=== PATIENT | female | born 2000 | race Caucasian/White ===

== ENCOUNTER 2024-03-25 13:28 | Outpatient (REF) | payer MEDICAID, SELFPAY ==
[2024-03-25 15:42] LABS: Bacterial Vaginosis PCR POSITIVE (Negative); Candida Group PCR NOT DETECTED (Not Detect); Candida glab krusei PCR NOT DETECTED (Not Detect); Trichomonas vaginalis PCR NOT DETECTED (Not Detect)
[2024-03-25 16:14] LABS: CT PCR DETECTED (Not Detect.); NG PCR NOT DETECTED (Not Detect.)
== END 2024-03-25 13:29 | disposition home or self-care (01) ==
LOC: HO.HHCLNP 13:28
PROVIDERS: Visit Provider Internal Medicine Geriatric Medicine
DX: R10.2 Pelvic and perineal pain (principal)
CPT/HCPCS: 81515; 87491; 87591

== ENCOUNTER 2024-03-26 13:18 | Emergency (ER) | payer MEDICAID, SELFPAY ==
[2024-03-26] VITALS (9 sets, daily range): BP systolic 103–121; BP diastolic 61–73; PULSE 72–101; RESP 16–20; TEMP 36.8–37; O2SAT 98–100; BMI 19.9
--- NOTE | ~2024-03-26 | XR_ITS ---
CLINICAL HISTORY: fall. dislocation? 3 view left shoulder Comparison: None Findings: There is anterior inferior dislocation of the left glenohumeral joint. No significant arthritic change. No erosions. No radiopaque foreign body. IMPRESSION: Anterior inferior dislocation of the left glenohumeral joint. This document has been electronically signed by: Steven Smallwood MD on 03/26/2024 14:52:41
--- NOTE | ~2024-03-26 | XR_ITS ---
CLINICAL HISTORY: Placement 3 view left shoulder Comparison: 03/26/2024 Findings: Successful glenohumeral dislocation reduction on the left. No significant loss of joint space or osteophytes. No erosions. No radiopaque foreign body. IMPRESSION: Successful reduction of the previous left glenohumeral dislocation. No definite fracture. This document has been electronically signed by: Steven Smallwood MD on 03/26/2024 16:56:14
--- NOTE | 2024-03-26 13:52 | ED.GENADULT ---
HPI - General Adult General Chief complaint: Extremity Injury, Upper Stated complaint: shoulder inj Time Seen by Provider: 03/26/24 15:36 Source: patient Mode of arrival: ambulatory Limitations: no limitations History of Present Illness ED Provider: VINNY Sanches HPI narrative: This is a 24-year-old female presenting status post slip and fall with complaints of left shoulder pain. She reports when she fell she fell right onto her left shoulder since then has been having pain and difficulty raising up her left upper extremity. Reports she can not even shrug her shoulders. No head strike or loss of consciousness not on blood thinners. She reports pain 10/10. She tells me she is able to move her elbow and fingers however not her left shoulder. No issues with left shoulder in the past. Denies chest pain, shortness breath, nausea, vomiting, headache, vision changes, dizziness, weakness, numbness, tingling, abdominal pain. Fall was witnessed and witnessed confirms no head strike. Related Data Previous Rx's ?Medication ?Instructions ?Recorded ketorolac 10 mg tablet 10 mg PO TID PRN pain 5 days #15 03/26/24 tabs metronidazole 500 mg tablet 500 mg PO BID 7 days #14 tabs 03/26/24 Allergies Allergy/AdvReac Type Severity Reaction Status Date / Time No Known Allergies Allergy Verified 03/26/24 13:50 Review of Systems Review of Systems: Yes all other systems are reviewed and are negative PMFSH Past Medical History Attestation statement: The following information was validated with the patient. Source: old records reviewed and nursing notes reviewed Social History Social History Advance Directives: No Advance Directives Information Provided: No Do you have a plan to hurt others: No Plan Physical Exam ED Vital Signs: Vital Signs - 24 hr 03/26/24 13:48 03/26/24 16:13 03/26/24 16:14 Temperature 98.3 F Pulse Rate 101 H 90 Respiratory Rate 16 16 18 Blood Pressure 103/61 114/72 Pulse Oximetry 99 100 Oxygen Delivery Method Room Air 03/26/24 16:32 03/26/24 16:36 03/26/24 16:39 Temperature 98.6 F Pulse Rate 82 88 82 Respiratory Rate 19 19 18 Blood Pressure 110/73 121/69 121/73 Pulse Oximetry 99 99 98 Oxygen Delivery Method Room Air Room Air Room Air 03/26/24 16:44 03/26/24 17:03 03/26/24 17:48 Temperature 98.2 F Pulse Rate 99 72 86 Respiratory Rate 17 16 20 Blood Pressure 110/72 118/69 119/67 Pulse Oximetry 98 100 100 Oxygen Delivery Method Room Air Room Air Room Air BMI result Body Mass Index 19.9 Vital signs stbale Appearance: Alert.? Oriented X3.? No acute distress.? Head: Normocephalic, atraumatic, no step-offs or deformities Eyes: Pupils equal, round and reactive to light.? ENT: Pharynx normal.? Neck: Normal inspection.? Neck supple.? CVS: Normal heart rate and rhythm.? Pulses normal.? Respiratory: No respiratory distress.? Breath sounds normal.? Abdomen: Soft and nontender.? Skin: Skin warm and dry.? Normal skin color.? Normal skin turgor.? Extremities: No lower extremity edema.? No calf ttp. 5/5 strength lower extremities and to right upper extremity. Difficult to assess strength to left upper extremity secondary to pain. left shoulder held in the adduction physician tenderness to palpation to left humeral head it appears to be at a place inferiorly concerning for anterior dislocation. Normal distal sensation. Able to wiggle bilateral fingers, normal range of motion to bilateral elbows. Normal distal sensation. No wrist drop. Capillary refill less than 2 seconds. 2+ radial and brachial pulses equal bilateral. Neuro: Oriented X 3.? No motor deficit.? No sensory deficit. CN 2-12 intact Course Course Course Narrative: RME: 24 yold female presents to the ED for left shoulder pain. patient fell and slipped on her stairs due to ice and she fell unto left shoulder. Decrease mobility of left shoulder. xray ordered Reevaluation(s) Reevaluation #1: Patient's initial x-ray with anterior inferior dislocation of the left glenohumeral joint. Reduction with conscious sedation was done using propofol total 75 mcg of propofol use patient tolerated procedure well traction counter traction used with success patient was placed in a sling. Postprocedure films were obtained which shows successful reduction of the previous left glenohumeral dislocation. No definite fracture. Dr. Webb at the bedside for procedure. Patient feeling better. After reduction neurovascular status intact. Patient not in pain. I did notice patient tested positive for chlamydia her doctor sent in doxycycline 100 mg b.i.d. times 10 days she also tested positive for BV however they did not send anything in for that will send metronidazole. I discussed safe sex practices with patient she has an appointment with OB to get further STD testing. Educated on proper sling use. Educated patient on diagnosis and treatment plan, answered all question, patient verbalizes understanding. At this time patient will be discharged home, advised to return with new or worsening symptoms. Educated on worrisome signs and symptoms and when to return. At this time I feel comfortable discharge home. Time: 17:26 Medications Administered Discontinued Medications Generic Name Dose Route Start Last Admin Trade Name Adrienne PRN Reason Stop Dose Admin Ketorolac Tromethamine 15 mg 03/26/24 17:03 03/26/24 17:42 Ketorolac Tromethamine 15 Mg/Ml Vial IVPUSH 03/26/24 17:04 15 mg ONCE ONE Administration Morphine Sulfate 2 mg 03/26/24 15:44 03/26/24 16:13 Morphine Sulfate 2 Mg/Ml Cartridge IVPUSH 03/26/24 15:45 2 mg ONCE ONE Administration Protocol Propofol 100 mg 03/26/24 15:59 03/26/24 16:16 Propofol 200 Mg/20 Ml Vial IVPUSH 03/26/24 16:00 100 mg ONCE ONE Administration Medical Decision Making Medical Decision Making [facility] Narrative: 24-year-old female presents status post slip and fall on ice prior to arrival complaining of left shoulder pain. No head strike or loss of consciousness me. Not on thinners On exam patient with left shoulder held in the adduction physician tenderness to palpation to left humeral head it appears to be at a place inferiorly concerning for anterior dislocation. Normal distal sensation. Able to wiggle bilateral fingers, normal range of motion to bilateral elbows. Normal distal sensation. No wrist drop. Capillary refill less than 2 seconds. 2+ radial and brachial pulses equal bilateral. GCS 15, NIH stroke scale 0. History and physical exam concerning for dislocation will rule out fracture. No signs of neurovascular compromise or acute threat to limb. No signs of trauma to head, neck, chest, abdomen or pelvis. Patient is adamant that she does not want a hematoma block to the left shoulder she would like conscious sedation. I did get verbal and written consent for conscious sedation. Dr. Highwood aware. Plan imaging Differential Diagnosis Differential Diagnoses: The differential diagnosis associated with the presentation includes (Patient is adamant that she does not want a hematoma block to the left shoulder she would like conscious sedation. I did get verbal and written consent for conscious sedation. Dr. Tracey cazares.) Admission/Observation Consideration of admission/observation: Escalation of care including admission/observation considered (Unlikely) Lab Data MDM Lab Attestation statement: I reviewed the patient's lab results. Independent Interpretation I performed an independent interpretation of an: Plain X-Ray (Findings: There is anterior inferior dislocation of the left glenohumeral joint. No significant arthritic change. No erosions. No radiopaque foreign body. IMPRESSION: Anterior inferior dislocation of the left glenohumeral joint.) Interpretation: SP reduction Findings: Successful glenohumeral dislocation reduction on the left. No significant loss of joint space or osteophytes. No erosions. No radiopaque foreign body. IMPRESSION: Successful reduction of the previous left glenohumeral dislocation. No definite fracture. Radiology Impression Discussion of test interpretation with radiology: I have reviewed the radiologist's reading. Independent Historian Clinical information obtained from an independent historian. History obtained from or confirmed by: Other (boyfriend ) External Record Review External record reviewed: Office record, Outpatient record and Prior outpatient labs Prescription Management I considered prescription management with: Antibiotic Chronic Conditions Patient?s care impacted by: Other (denies ) Critical Care Time Critical Care Time Critical Care Time: Yes Total Critical Care Time: 35 Attestation: I attest to this time spent taking care of the patient, obtaining history, physical, reviewing labs, imaging, treatment of patients condition +/- specialist/hospitalist consult Discharge Plan Discharge Clinical Impression: Chlamydia, Bacterial vaginosis Anterior shoulder dislocation Qualifiers: Laterality: left Patient Disposition: Home, Self-Care Instructions: Shoulder Dislocation (ED) Additional Instructions: Take your medications as prescribed. If you were prescribed antibiotics today, it is important that you take your medication to their entirety, do not skip any doses, do not finish them early. Follow-up with your primary care provider this week. Return to the emergency department with new or worsening symptoms. Such as fevers, chills, chest pain, shortness of breath, nausea, vomiting, dizziness, headache, vision changes, lethargy In case of emergency call 911 Keep sling on during the day take it off at night. Follow up with the orthopedic team. Return for any worsening pain, swelling, numbness, tingling. Toradol has been sent to your pharmacy, you tolerated this well in the department. Please take this as prescribed do not take this with ibuprofen, or other NSAIDs, do not mix this with alcohol. Side effects of this medication including increased risk for bleeding and possible kidney injury. Prescriptions: New ketorolac 10 mg tablet 10 mg PO TID PRN (Reason: pain) 5 Days Qty: 15 0RF Rx Instructions: Tolerated IM or IV in department metronidazole 500 mg tablet 500 mg PO BID 7 Days Qty: 14 0RF Referrals: [facility] [place] Orth[facility] Surgeons [Provider Group] - 1 day Caron Marrufo MD [Primary Care Provider] - 2 days Stand Alone Forms: Work/School Release Interventions: ED Discharge Assessment Last Done: 03/26/24 17:48 Discharge Date/Time: 03/26/24 17:49 Print Language: French
[2024-03-26] MEDS: Morphine Sulfate 2 MG/ML CARTRIDGE IVPUSH (16:13)
[2024-03-26] MEDS: propofoL 200 MG/20 ML VIAL 100 MG IVPUSH (16:16)
--- NOTE | 2024-03-26 16:36 | PC.NURSE ---
Conscious sedation procedure: RT, , PA AND 2 RNS AT BEDSIDE PT ON MONITOR, VITALS MONITOR. ETCO2 ON. IV IN RIGHT AC PATENT CRASH CART, SUCTION AND BVM AVAILABLE TIME OUT 1615 PROPOFOL 25 MG 1616 PROPOFOL 25 MG 1617 PROPOFOL 25 MG 1618 PROPOFOL 25 MG 1619 Providers finished procedure and xray taken, sling applied by provider PATIENT HAD QUICK RETURN TO BASELINE, ALERT AND ORIENTED, VSS. THIS RN REMAINED IN ROOM.
[2024-03-26] MEDS: Ketorolac Tromethamine 15 MG/ML VIAL IVPUSH (17:42)
== END 2024-03-26 17:49 | disposition home or self-care (01) ==
PROVIDERS: Emergency Provider Emergency Medicine; PCP Family Medicine
DX: S43.005A Unspecified dislocation of left shoulder joint, initial encounter (principal); M25.512 Pain in left shoulder; N76.0 Acute vaginitis; A74.9 Chlamydial infection, unspecified; W00.0XXA Fall on same level due to ice and snow, initial encounter; Y93.89 Activity, other specified; Y92.89 Other specified places as the place of occurrence of the external cause; Y99.8 Other external cause status
CPT/HCPCS: 73030; 96374; 96375; 99284; J1885; J2270; J2704

== ENCOUNTER → 2024-03-26 13:51 | Outpatient (BNV) | payer MEDICAID, SELFPAY | PROVIDERS: PCP Family Medicine; Visit Provider Radiology Vascular & Interventional Radiology | DX: S43.015A Anterior dislocation of left humerus, initial encounter (principal) | CPT/HCPCS: 73030 ==

== ENCOUNTER 2024-03-27 14:03 | Outpatient (REF) | payer MEDICAID, SELFPAY ==
--- OUTSIDE RECORDS SUMMARY | 2024-03-27 15:41 | XMS_ITS | Clinical Summary ---
Author Organization [employer] Address [address] [facility] [address] [place] [address] Care Team Providers Care Roll Cutting Operator Name Role Phone Caron Marrufo MD Primary Care Provider +1- [phone] Allergies No known active allergies Medications doxycycline (Vibra-Tabs) 100 MG tablet Take 1 tablet (100 mg) by mouth 2 times daily for 7 days. Take with a full glass of water and do not lie down for at least 30 minutes after. 14 tablet 03/26/19 25 025 Active medroxyPROGEST ERone (Depo-Provera) 150 MG/ML injectionIndic ations:Family planning Inject 1 mL (150 mg) into the muscle every 3 (three) months. 1 mL 3 03/27/19 25 Active sulfamethoxazo le-trimethopri m (Bactrim DS) 800-160 MG tablet Take 1 tablet by mouth 2 times daily for 3 days. 6 tablet 03/25/19 25 025 Discontinued(Th erapy completed) medroxyPROGEST ERone (Depo-Provera) 150 MG/ML injectionIndic ations:Family planning Inject 1 mL (150 mg) into the muscle every 3 (three) months. 1 mL 3 03/27/19 25 025 Discontinued Hospital, Clinic, or Other Facility Administered Medication Ordered Dose Route Frequency Start Date End Date Status medroxyPROGESTERone (Depo-Provera) injection 150 mgIndications:Family planning 150 mg IM Once 03/27/2024 03/27/2024 Ended Active Problems Problem Noted Date Diagnosed Date Chlamydia 03/27/2024 Other specified health status 03/27/2024 Overview (03/27/2024): -next comprehensive annual evaluation due after -eye care facilitated by [facility] -dental home encouraged -simon care proxy filed 03/27/24 Family planning 03/27/2024 Assessment & Plan (03/27/2024 2:15 PM EST): -depo started 03/27/24 risks and benefits discussed Anterior shoulder dislocation 03/26/2024 Overview (03/26/2024): -xray 03/26/24 IMPRESSION: Anterior inferior dislocation of the left glenohumeral joint. Adolescent idiopathic scoliosis of thoracolumbar region 03/06/2016 Overview (03/27/2024): 10/15/15 - [facility] - High curvature apex/Risser 4, no bracing. Left thoracic curve 29 degrees/right thoracic curve 17 degrees/lumber curve 8 degrees. Some back pain, will follow with [facility]. Encounters Date Type Department Care Team Description 03/27/2024 1:05 PM EST Procedure Visit [facility] MEDICINE [address] [place] [phone] Caron Marrfuo MD Family planning (Primary Dx); Dietary counseling; Exercise counseling; Other specified health status; Encounter for contraceptive management, unspecified type 03/27/2024 Travel 03/27/2024 Telephone [facility] MEDICINE [address] [place] [phone] Caron Marrufo MD Appointment Request 03/26/2024 Orders Only [facility] External Provider, [facility] 03/26/2024 Telephone [facility] MEDICINE [address] [place] [phone] Viraj Rendon MD 03/25/2024 11:40 AM EST Office Visit [facility] WALK-IN [address] [address] Viraj Rendon MD Suprapubic pain (Primary Dx) 03/25/2024 Travel 03/23/2024 2:00 PM EST Clinical Support [address] [address] Bre Polanco RN Encounter for contraceptive management, unspecified type 03/23/2024 Travel from Last 3 Months Family History Medical History Relation Name Comments Diabetes Father's Sister Arthritis Maternal Grandmother Relation Name Status Comments Father's Sister Maternal Grandmother Social History Tobacco Use Types Packs/Day Years Used Date Smoking Tobacco: Never Passive Smoke Exposure: Never Smokeless Tobacco: Never Tobacco Cessation:Counseling Given: Not Answered Alcohol Use Standard Drinks/Week Comments Never 0 (1 standard drink = 0.6 oz pur e alcohol) Comments Unknown Sex and Gender Information Value Date Recorded Sex Assigned at Female 06/26/2022 10:25 AM EDT Legal Sex Female 10:24 AM EDT Gender Identity Female 06/26/2022 10:25 AM EDT Sexual Orientation Straight 06/26/2022 10 :25 AM EDT Last Filed Vital Signs Vital Sign Reading Time Taken Comments Blood Pressure 121/77 03/27/2024 1:10 PM EST Pulse 80 03/27/2024 1:10 PM EST Temperature 36.3 ??C (97.3 ??F) 03/27/2024 1:10 PM ES T Respiratory Rate 20 03/27/2024 1:10 PM EST Oxygen Saturation 98% 03/27/2024 1:10 PM EST Inhaled Oxygen Concentration - - Weight 49.9 kg (110 lb) 03/27/2024 1:10 PM EST Height 167.6 cm (5' 6 ) 03/27/2024 1:10 PM EST Body Mass Index 17.75 03/27/2024 1:10 PM EST Plan of Treatment Upcoming Encounters Date Type Department Care Team (Late st Contact Info) Description 04/21/2024 10:00 AM EST Office Visit [facility] MEDICINE [address] [place] [address] Caron Marrufo MD [address] [place] [address] Health Maintenance Due Date Last Done Comments Depression Screening 2002 HIV Screening 2002 SDOH Screening 2002 Alcohol/Substance Use Screening 2014 Hepatitis C Screening 01/07/2020 Pap Smear 2023 DTaP/Tdap/Td Vaccines (7 - Td or Tdap) 10/05/2023 10/04/2013, 01/26/2006, 05/25/2005, Additional history exists Influenza Vaccine (#1) 2023 , 12/24/2021, 10/30/2014, Additional history exists Chlamydia and Gonorrhea Screening 03/25/2025 03/25/2024 COVID-19 Vaccine ( season) 2025 07/15/2020, 06/16/2020 Postponed from 10/24/2023 (Patient Refused) Family Planning (PISQ) 03/27/2025 03/27/2024 Tobacco Screening 03/27/2025 03/27/2024 Zoster Vaccines (1 of 2) 01/07/2052 RSV Patients and Patients Aged 60 years or older (1 - 1-dose 75+ series) 2077 HIB Vaccines Completed 04/27/2003, 2002 Hepatitis B Vaccines Completed 12/17/2003, 08/07/2003, 05/02/2003 Hepatitis A Vaccines Completed 05/23/2008, 10/02/19 07 Meningococcal Vaccine Aged Out 10/04/2013 No [place] tami eligible based on patient's age to complete this topic HPV Vaccines Completed 07/02/2014, 11/24, 10/04/2013 Pneumococcal Vaccine: Pediatrics (0 to 5 Years) and At-Risk Patients (6 to 49) Years) Aged Out 07/02/2014 No longer eligible based on patient's age to complete this topic IPV Vaccines Aged Out No longer eligi ble based on patient's age to complete this topic RSV under 20 months Aged Out No longe r eligible based on patient's age to complete this topic Rotavirus Vaccines Aged Out No longer eligible based on patient's age to complete this topic Procedures Procedure Name Priority Date/Time Associated Diagnosis Comments POCT , URINE Routine 03/27/2024 1:51 PM EST Encounter for contraceptive management, unspecified type XR SHOULDER 2+ VIEWS LEFT Routine 03/26/2024 4:56 PM EST XR SHOULDER 2+ VIEWS LEFT Routine 03/26/2024 2:52 PM EST BACTERIAL VAGINOSIS PANEL Routine 03/25/2024 12:16 PM EST Suprapubic pain CHLAMYDIA/N. GONORRHOEAE RNA, TMA, UROGENITAL Routine 03/25/2024 12:16 PM EST Suprapubic pain POCT URINALYSIS DIPSTICK Routine 03/25/2024 11:19 AM EST Suprapubic pain POCT , URINE Routine 03/23/2024 11:54 AM EST Encounter for contraceptive management, unspecified type from Last 3 Months Results * POCT Urine (03/27/2024 1:51 PM EST) Only the most recent of2 resultswithin the time period is included. Preg Test, Ur Negative Negative, Indeterminate, None Detected, Invalid, Specimen unsatisfactory for evaluation, Weakly Positive QC Media Lot # [id number] Lot# Expiration Date [id number] Urine 03/27/2024 1:51 PM EST Caron Marrufo MD POINT OF CARE TEST ENTER/E DIT ORDERABLES Final Result * XR Shoulder 2+ Views Left (03/26/2024 4:56 PM EST) Only the most recent of2 resultswithin the time period is included. Anatomical Region Laterality Modality Upper Extremities, Shoulder Left Radi ographic Imaging 03/26/2024 4:56 PM EST Narrative 03/26/2024 4:57 PM EST ? [facility] ?[address] ?[place] [address] ?XRay Report ? Signed ? Patient: Toure,Yaretsmelly ?MR#: MM ?? [id number] ? : 2000 ?Acct:[id number] ? Age/Sex: 24 / F ?ADM Date: 02/02/25 ? Loc: HO.ED ? Attending Dr: ? Ordering Physician: Thai Sanches ?? Date of Service: 03/26/24 ?? Procedure(s): XR shoulder LT min 2V ?? Accession Number(s): [id number] ? cc: Caron Marrufo MD; Thai Sanches ? CLINICAL HISTORY: Placement ? 3 view left shoulder ? Comparison: 03/26/2024 ? Findings: ?? Successful glenohumeral dislocation reduction on the left. ?? No significant loss of joint space or osteophytes. ?? No erosions. No radiopaque foreign body. ? IMPRESSION: ?? Successful reduction of the previous left glenohumeral dislocation. No ?? definite fracture. ? This document has been electronically signed by: Steven Smallwood MD on ?? 03/26/2024 16:56:14 ? Dictated By: ?Steven Smallwood MD ? Signed By: ?<Electronically signed by Steven Smallwood MD in OV> ? 03/26/24 1656 ? DD/ 55 ? TD/TT: 03/26/241655 ? High Pressure Operator: ? Procedure Note Angie, Image - 03/26/2024 [place] [address] XRay Report Signed Patient: Kelvin ToureMR#: [id number] : 2000Acct:[id number] Age/Sex: Date: 03/26/24 Loc: HO.ED Attending Dr: Ordering Physician: Thai Sanches Date of Service: 03/26/24 Procedure(s): XR shoulder LT min 2V Accession Number(s): [id number] cc: Caron Marrufo MD; Thai Sanches CLINICAL HISTORY: Placement 3 view left shoulder Comparison: 03/26/2024 Findings: Successful glenohumeral dislocation reduction on the left. No significant loss of joint space or osteophytes. No erosions. No radiopaque foreign body. IMPRESSION: Successful reduction of the previous left glenohumeral dislocation. No definite fracture. This document has been electronically signed by: Steven Smallwood MD on 03/26/2024 16:56:14 Dictated By: Steven Smallwood MD Signed By: <Electronically signed by Steven Smallwood MD in OV> 03/26/241655 DD/ 55 TD/TT: 03/26/241655 High Pressure Operator: [facility] External Provider IMG XR PROCEDURES Edited Result - Final * (ABNORMAL) Bacterial Vaginosis Panel (03/25/2024 12:16 PM EST) Pathologist [facility] TRICHOMONAS VAGINALIS DETECTION BY PCR NOT DETECTED Not Detect [facility] BACTERIAL VAGINOSIS DETECTION BY PCR POSITIVE(A) Negative [facility] Comment:The BV organism targ ets of the Xpert Xpress MVP test can becommensal in women; Xpert Xpress MVP positive results forbacterial vaginosis should be considered in conjunction withother clinical and patient information to determine thedisease status. Organisms that are not detected by the XpertXpress MVP test have also been reported to be associatedwith BV and aerobic vaginitis.The Xpert Xpress MVP test performance has not been evaluatedin patients under the age of 14. MICHELLE GROUP DETECTION BY PCR NOT DETECTED Not Detect [facility] Michelle glab krusei PCR NOT DETECTED Not Detect [facility] Swab Vaginal structure / Unknown 03/25/2024 12:16 PM EST 03/25/2024 1:32 PM EST Viraj Rendon MD LAB MICROBIOLOGY - GENERAL ORDER TRAVON Final Result [facility] [address] [place] [phone] * (ABNORMAL) Chlamydia/N. Gonorrhoeae RNA, TMA, Urogenitial (03/25/2024 12:16 PM EST) CT PCR DETECTED(A) Not Detect. [facility] Comment:Detected results may be observed after successful antibiotictreatment due to target nucleic acids from residualnon-viable chlamydia. As with many diagnostic tests, resultsfrom the Xpert CT/NG assay should be interpreted inconjunction with other laboratory and clinical dataavailable to the clinician.Xpert CT/NG performance has not been evaluated in patientsless than 14 years of age. The assay should not be used forthe evaluationof suspected sexual abuse or for other medico- legalindications. Additional testing is recommended inany circumstance when false positive or false negativeresults could lead to adverse medical, social orpsychological consequences.These results must be reported by the ordering clinician orclinical facility to the [facility] required by state law. NG PCR NOT DETECTED Not Detect. [facility] Comment:A not detected test result does not exclude the possibilityof infection because test results can be affected byimproper specimen collection, concurrent antibiotic therapy,or the number of organisms in the specimen which may bebelow the sensitivity of the test. As with many diagnostictests, results from the Xpert CT/NG assay should beinterpreted in conjunction with other laboratory andclinical data available to the clinician.Xpert CT/NG performance has not been evaluated in patientsless than 14 years of age. The assay should not be used forthe evaluationof suspected sexual abuse or for other medico-legalindications. Additional testing is recommended in anycircumstance when false positive or false negative resultscould lead to adverse medical, social or psychologicalconsequences. Swab Vaginal structure / Unknown 03/25/2024 12:16 PM EST 03/25/2024 1:32 PM EST Narrative [facility] - 03/25/2024 4:14 PM EST Vaginal us Viraj Name LAB MICROBIOLOGY - GENERAL ORDER TRAVON Final Result [facility] [address] [place] [phone] * (ABNORMAL) POCT Urinalysis (03/25/2024 11:19 AM EST) Color, UA Yellow Clarity, UA Hazy Glucose, UA Negative Bilirubin, UA Negative Ketones, UA Positive Comment:Trace Spec Grav, UA 1.020 Blood, UA Positive(A) Negative, None Detected Comment:Small pH, UA 7.0 Protein, UA Moderate Urobilinogen, UA 1.0 Leukocytes, UA Moderate(A) Negative, Rare, Trace Nitrite, UA Negative Negative, None Detected QC Media Lot # [id number] Lot# Expiration Date Urine 03/25/2024 11:1 9 AM EST Viraj Rendon MD POINT OF CARE TEST ENTER/EDIT OR DERABLES Final Result from Last 3 Months Insurance Care Teams Roll Cutting Operator Relationship Specialty Start Date End Date Yaron, MD Caron [address] [place] [phone] PCP - General Family Medicine 12/23/23
--- OUTSIDE RECORDS SUMMARY | 2024-03-27 15:41 | XMS_ITS | Encounter Summary ---
Author Organization [employer] Address [address] [facility] [address] [place] [address] Care Team Providers Care Manager Software Development Name Role Phone Caron Marrufo MD Primary Care Provider [phone]- [phone] Reason for Visit * Reason Comments Nexplanon Insertion Encounter Details Date Type Department Care Team (Latest Contact Info) Description 03/27/2024 1:05 PM EST Procedure Visit [facility] MEDICINE [address] [place], [place] [phone] Caron Marrufo MD [address] [place], [place] [phone] Family planning (Primary Dx); Dietary counseling; Exercise counseling; Other specified health status; Encounter for contraceptive management, unspecified type Social History Tobacco Use Types Packs/Day Years [...] Orientation Straight 06/26/2022 10 :25 AM EDT documented as of this encounter Last Filed Vital Signs Vital Sign Reading [...] Mass Index 17.75 03/27/2024 1:10 PM EST documented in this encounter Progress Notes * Caron Marrufo MD - 03/27/2024 1:05 PM EST Subjective Patient ID: Kelvin Toure is a 24 y.o. female who presents for Nexplanon Insertion. Pt interested in Nexptplanon but wants in left arm and dislocated left shoulder this weekend. WE discussed options. She would like tot try depo for benefit of possible weight gain and consider Nextplanon when her shoulder is better. LMP 2 weeks ago, Last sexual intercourse early Feb. Recent dx chlymidia. Has rx. Partner aware. STI testing ordered. Aware of Prep. Review of Systems Objective Visit Vitals BP 121/77 (BP Location: Left arm, Patient Position: Sitting, BP Cuff Size: Child) Pulse 80 Temp 97.3 ??F (36.3 ??C) (Temporal) Resp 20 Body mass index is 17.75 kg/m??. Physical Exam Musculoskeletal: Comments: Left shoulder in sling Problem List Items Addressed This Visit Family planning - Primary -depo started 03/27/24 risks and benefits discussed Relevant Medications medroxyPROGESTERone (Depo-Provera) injection 150 mg (Completed) medroxyPROGESTERone (Depo-Provera) 150 MG/ML injection Other specified health status Other Visit Diagnoses Dietary counseling Exercise counseling Encounter for contraceptive management, unspecified type Relevant Orders POCT Urine (Completed) documented in this encounter Miscellaneous Notes * Assessment & Plan Note - Caron Marrufo MD - 03/27/2024 2:15 PM EST Associated Problem(s): Family planning -depo started 03/27/24 risks and benefits discussed documented in this encounter Plan of Treatment Upcoming Encounters Date Type Department Care Team (Late st Contact Info) Description 04/21/2024 10:00 AM EST Office Visit [facility] [address] [facility] [place] [address] Caron Marrufo MD [address] [facility] [place] [address] documented as of this encounter Procedures Procedure Name Priority Date/Time Associated Diagnosis Comments POCT , URINE Routine 03/27/2024 1:51 PM EST Encounter for contraceptive management, unspecified type documented in this encounter Results * POCT Urine (03/27/2024 1:51 PM EST) Preg Test, Ur Negative Negative, Indeterminate, None Detected, Invalid, Specimen unsatisfactory for evaluation, Weakly Positive QC Media Lot # [id number] Lot# Expiration Date [id number] Urine 03/27/2024 1:51 PM EST Caron Marrufo MD POINT OF CARE TEST ENTER/E DIT ORDERABLES Final Result documented in this encounter Visit Diagnoses Diagnosis Encounter for contraceptive management, unspecified type Dietary counseling Dietary surveillance and counseling Exercise counseling Other specified health status documented in this encounter Administered Medications Inactive Administered Medications - up to 3 most recent administrations Medication Order MAR Action Action Date Dose Rate Site medroxyPROGESTERone (Depo-Provera) injection 150 mg 150 mg, Intramuscular, Once, On Wed03/27/24 at 1330, For 1 dose, IM Q11-15 weeks, bring to office for injectionIndications:Famil y planning Given 03/27/2024 1:30 PM EST 150 mg Right Deltoid documented in this encounter Care Teams Manager Software Development Relationship Specialty Start Date End Date Caron Marrufo MD [address] [place] [address] PCP - General Family Medicine 12/23/23 documented as of this encounter
--- OUTSIDE RECORDS SUMMARY | 2024-03-27 15:41 | XMS_ITS | Encounter Summary ---
Author Organization [employer] Address [address] [facility] [address], [place] [address] Care Team Providers Care Steel Plate Printer Name Role Phone Caron Marrufo MD Primary Care Provider [phone]- [phone] Encounter Details Date Type Department Care Team (Latest Contact Info) Description 03/27/2024 Travel Social History Tobacco Use Types Packs/Day Years Used Date Smoking Tobacco: Never Passive Smoke Exposure: Never Smokeless Tobacco: Never Alcohol Use Standard Drinks/Week Comments Never 0 (1 standard drink = 0.6 oz pur e alcohol) Comments Unknown Sex and Gender Information Value Date Recorded Sex Assigned at Female 06/26/2022 10:25 AM EDT Legal Sex Female 10:24 AM EDT Gender Identity Female 06/26/2022 10:25 AM EDT Sexual Orientation Straight 06/26/2022 10 :25 AM EDT documented as of this encounter Plan of Treatment Upcoming Encounters Date Type Department Care Team (Late st Contact Info) Description 04/21/2024 10:00 AM EST Office Visit [facility] MEDICINE [address] [place] [address] Caron Marrufo MD [address] [place] [address] documented as of this encounter Visit Diagnoses Not on filedocumented in this encounter Care Teams Steel Plate Printer Relationship Specialty Start Date End Date Caron Marrufo MD [address] [place] [address] PCP - General Family Medicine 12/23/23 documented as of this encounter
--- OUTSIDE RECORDS SUMMARY | 2024-03-27 15:41 | XMS_ITS | Encounter Summary ---
Author Organization [employer] Address [address] [facility] [address] [place] [address] Care Team Providers Care Air Analysis Engineering Technician Name Role Phone Caron Marrufo MD Primary Care Provider [phone]- [phone] Encounter Details Date Type Department Care Team (Late st Contact Info) Description 03/26/2024 Orders Only [facility] External Provider, [facility] Social History Tobacco Use Types Packs/Day Years Used Date Smoking Tobacco: Never Assessed Comments Unknown Sex and Gender Information Value [...] Description 04/21/2024 10:00 AM EST Office Visit [facility] [address] [place] [address] Caron Marrufo MD [address] [place] [address] documented as of this encounter Procedures Procedure Name Priority Date/Time Associated Diagnosis Comments XR SHOULDER 2+ VIEWS LEFT Routine 03/26/2024 4:56 PM EST XR SHOULDER 2+ VIEWS LEFT Routine 03/26/2024 2:52 PM EST documented in this encounter Results * XR Shoulder 2+ Views Left (03/26/2024 4:56 PM EST) Anatomical Region Laterality Modality Upper Extremities, Shoulder Left Radi ographic Imaging 03/26/2024 4:56 PM EST Narrative 03/26/2024 4:57 PM EST ? [facility] ?[address] ?[place] [address] ?XRay Report ? Signed ? Patient: Toure,Yaretsmelly ?MR#: MM ?? [id number] ? : 2000 ?Acct:[id number] ? Age/Sex: 24 / F ?ADM Date: 03/26/24 ? Loc: HO.ED ? Attending Dr: ? Ordering Physician: Thai Sanches ?? Date of Service: 03/26/24 ?? Procedure(s): XR shoulder LT min 2V ?? Accession Number(s): [id number] ? cc: Caron Marrufo MD; Thai Sanches [...] by Steven Smallwood MD in OV> ? 03/26/241655 ? DD/ 55 ? TD/TT: 03/26/241655 ? Video Camera Operator: ? Procedure Note Angie, Image - 03/26/[address] [address] XRay Report Signed Patient: Kelvin ToureMR#: [id number] : 2000Acct:[id number] Age/Sex: 24 / FADM Date: 03/26/24 Loc: HO.ED Attending Dr: Ordering Physician: Thai Sanches Date of Service: 03/26/24 Procedure(s): XR shoulder LT min 2V Accession Number(s): [id number] cc: Caron Marrufo MD; Thai Sanches CLINICAL [...] in OV> 03/26/241655 DD/ 55 TD/TT: 03/26/241655 Video Camera Operator: [facility] External Provider IMG XR PROCEDURES Edited Result - Final * XR Shoulder 2+ Views Left (03/26/2024 2:52 PM EST) Anatomical Region Laterality Modality Upper Extremities, Shoulder Left Radi ographic Imaging 03/26/2024 2:52 PM EST Narrative 03/26/2024 2:53 PM EST ? [facility] ?[address] ?[place] [address] ?XRay Report ? Signed ? Patient: Kelvin Toure ?MR#: [id number] ?? [id number] ? : 2000 ?Acct:[id number] ? Age/Sex: 24 / F ?ADM Date: 03/26/24 ? Loc: HO.ED ? Attending Dr: ? Ordering Physician: Ry Wall ?? Date of Service: 03/26/24 ?? Procedure(s): XR shoulder LT min 2V ?? Accession Number(s): [id number] ? cc: Ry Wall; Caron Marrufo MD ? CLINICAL HISTORY: fall. dislocation? 3 view left shoulder ? Comparison: None ? Findings: ?? There is anterior inferior dislocation of the left glenohumeral joint. ?? No significant arthritic change. ?? No erosions. No radiopaque foreign body. ? IMPRESSION: ?? Anterior inferior dislocation of the left glenohumeral joint. ? This document has been electronically signed by: Steven Smallwood MD on ?? 03/26/2024 14:52:41 ? Dictated By: ?Steven Smallwood MD ? Signed By: ?<Electronically signed by Steven Smallwood MD in OV> ? 03/26/241452 ? DD/ 51 ? TD/TT: 03/26/24 1452 ? Video Camera Operator: ? Procedure Note Angie, Image - 03/26/2024 [facility] [address] [place] [address] XRay Report Signed Patient: Kelvin ToureMR#: [id number] : 2000Acct:[id number] Age/Sex: M Date: 03/26/24 Loc: HO.ED Attending Dr: Ordering Physician: Ry Wall Date of Service: 03/26/24 Procedure(s): XR shoulder LT min 2V Accession Number(s): [id number] cc: Ry Wall; Caron Marrufo MD CLINICAL HISTORY: fall. dislocation? 3 view left shoulder Comparison: None Findings: There is anterior inferior dislocation of the left glenohumeral joint. No significant arthritic change. No erosions. No radiopaque foreign body. IMPRESSION: Anterior inferior dislocation of the left glenohumeral joint. This document has been electronically signed by: Steven Smallwood MD on 03/26/2024 14:52:41 Dictated By: Steven Smallwood MD Signed By: <Electronically signed by Steven Smallwood MD in OV> 03/26/24 1453 DD/ 1452 TD/TT: 03/26/24 1452 Video Camera Operator: [facility] External Provider IMG XR PROCEDURES Edited Result - Final documented in this encounter Visit Diagnoses Not on filedocumented in this encounter Care Teams Air Analysis Engineering Technician Relationship Specialty Start Date End Date Caron Marrufo MD [address] [place] [address] PCP - General Family Medicine 12/23/23 documented as of this encounter
--- OUTSIDE RECORDS SUMMARY | 2024-03-27 15:41 | XMS_ITS | Clinical Summary ---
Author Organization [facility] Address [address] [place] [address] Care Team Providers Care Milk Route Deliverer Name Role Phone Krystal Cleveland PA-C Primary Care Provider [phone] Source Comments PLEASE NOTE, if this patient is a minor, it may be UNLAWFUL to discuss sensitive information that is contained in these records (such as FAMILY PLANNING, MENTAL HEALTH or SUBSTANCE ABUSE) with the minor patient's parent or other person without the patient's specific authorization.[facility] Allergies No known active allergies Medications GUMMIES 400 mcg-35 mg- 25 mg-5 mg chew CHEW AND SWALLOW 1 GUMMIE BY MOUTH DAILY 2 Active clotrimazole (LOTRIMIN) 1 % creamIndication s:Tinea corporis Apply topically 2 (two) times daily 24 g 3 Active escitalopram (LEXAPRO) 10 mg tabletIndicatio ns: depression Take 1 Tablet by mouth once daily 30 Tablet 1 3 Active Active Problems Problem Noted Date Diagnosed Date Adolescent idiopathic scoliosis of thoracolumbar region 03/06/2016 Overview (03/06/2016): 10/15/15 - [facility] - High curvature apex/Risser 4, no bracing. Left thoracic curve 29 degrees/right thoracic curve 17 degrees/lumber curve 8 degrees. Some back pain, will follow with [facility]. Immunizations Name Administration Dates Next Due DTAP (DAPTACEL),5 PERTUSSIS ANTIGENS 06/2005,05/25/2005,08/07/2003,05/06,2002 Flu, Preservative Free 11/20/2022,12/24/2021 HEP B, PED/ADOL 12/17/2003,08/07/2003,05/02/2003 HPV, QUADRIVALENT 07/02/2014,12/21/2013,10/05/19 14 Hep A, Ped/adol, 2 Dose 05/23/2008,10/01/2006 Hib (PRP-T) 04/27/2003,2002 INFLUENZA, SEASONAL, INJECTABLE 03/18/2012 INFLUENZA, SEASONAL, INJECTA BLE, PRESERVATIVE FREE 10/30/2014,12/21/2013 MENINGOCOCCAL MPSV4 10/04/2013 MMR (MMR II/Priorix) 01/26/2006,05/02/2003 Moderna COVID-19 Vaccine, re d cap blue label, 12+ Primary Series 07/15/2020,06/16/2020 PNEUMOCOCCAL CONJUGATE PCV 13 07/02/2014 TDAP 10/04/2013 Varicella, Live Vaccine 01/26/2006,05/02/2003 Family History Medical History Relation Name Comments No Known Problems Father Anemia Mother Relation Name Status Comments Father Alive Maternal Grandfather Maternal Grandmother Mother Alive Paternal Grandfather Paternal Grandmother Alive Social History Tobacco Use Types Packs/Day Years Used Date Smoking Tobacco: Never Passive Smoke Exposure: Yes Smokeless Tobacco: Never Tobacco Cessation:Counseling Given: Not Answered Comments:mother smoke. Alcohol Use Standard Drinks/Week Comments No 0 (1 standard drink = 0.6 oz pur e alcohol) Social Connections Answer Date Recorded Connectedness 0 12/24/2021 Financial Resource Strain Answer Date R ecorded Financial Resource Strain 0 2021 Stress Answer Date Recorded Stress 0 12/24/2021 Physical Activity Answer Date Recorded Physical Activity 0 10/15/2018 Food Insecurity Answer Date Recorded Food 0 12/24/2021 Transportation Needs Answer Date Record ed Transportation 0 12/24/2021 Housing Stability Answer Date Recorded Housing 0 12/24/2021 Safety and Environment Answer Date Owen rded Safety 0 12/24/2021 Utilities Answer Date Recorded Utilities 0 12/24/2021 Employment Answer Date Recorded Stress 0 12/24/2021 Comments Unknown Sex and Gender Information Value Date Recorded Sex Assigned at Female 04/26/2018 7:11 AM PST Legal Sex Female 11:36 AM PDT Gender Identity Female 04/26/2018 7:11 AM PST Sexual Orientation Straight 10/23/2021 12 :59 PM PDT Last Filed Vital Signs Vital Sign Reading Time Taken Comments Blood Pressure 100/76 04/26/2023 3:41 PM EST Pulse 78 04/26/2023 3:41 PM EST Temperature 36.6 ??C (97.8 ??F) 04/26/2023 3:41 PM ES T Respiratory Rate 17 04/26/2023 3:41 PM EST Oxygen Saturation 99% 04/26/2023 3:41 PM EST Inhaled Oxygen Concentration - - Weight 64.4 kg (142 lb) 04/26/2023 3:41 PM EST Height 165.1 cm (5' 5 ) 04/26/2023 3:41 PM EST Body Mass Index 23.63 04/26/2023 3:41 PM EST Plan of Treatment Health Maintenance Due Date Last Done Comments HPV Screening 2002 Hepatitis C Screening 2002 Pap + HPV 2002 HIV Screening 2017 Relationship Safety Screening/Counseling 12/24/2022 12/24/2021 Cervical Cancer Screening 2023 Pap Smear 2023 Annual Preventive Care Visit 02/26/2023 02/26/2022 [id number] ( season) 10/24/202307/15/ 021, 06/16/2020 Imm-Influenza (#1) 2023 11/20/2022, 1 02/23/2021, 10/30/2014, Additional history exists Alcohol and Drug Screen 02/23/2024 04/26/19, 02/26/2022, 12/24/2021, Additional history exists Depression Annual Screen 02/23/2024 04/26/2023, 05/10/2016 Chlamydia Screening 04/25/2024 04/26/2023 Gonorrhea Screening 04/25/2024 04/26/2023 Tobacco Screening 04/25/2024 04/26/2023 Hypertension Screening (#1) 04/25/2026 Imm-DTaP/Tdap/Td (8 - Td or Tdap) 04/03/2032 04/03/2022, 10/04/2013, 01/26/2006, Additional history exists Imm-Hepatitis B Completed 12/17/2003, 07/23, 05/02/2003 Imm-Varicella Completed 01/26/2006, 05/02/2003 Imm-HPV Completed 07/02/2014, 11/24, 10/04/2013 Cervical Ablation/Cold-Knife Conization Discontinued Cervical Cryotherapy Discontinued Colposcopy Discontinued Endometrial Biopsy Discontinued Excision/Leep Discontinued HPV Genotyping Discontinued Vaginal Pap Discontinued Vulvoscopy Discontinued Procedures Procedure Name Priority Date/Time Associated Diagnosis Comments SURESWAB ADVANCED VAGINITIS PLUS, TMA Routine 04/26/2023 4:22 PM EST Vaginal itching from Last 3 Months or Most Recently Relevant to Health Maintenance Results * (ABNORMAL) SURESWAB ADVANCED VAGINITIS PLUS, TMA (04/26/2023 4:22 PM EST) CHLAMYDIA TRACHOMATIS RNA, TMA NOT DETECTED NOT DETECTED [facility] NEISSERIA GONORRHOEAE RNA, TMA NOT DETECTED NOT DETECTED [facility] COMMENT [facility] SURESWAB(R) ADV BACTERIAL VAGINOSIS (BV), TMA NEGATIVE NEGATIVE [facility] MICHELLE SPECIES DETECTED(A) NOT DETECTED [facility] MICHELLE GLABRATA NOT DETECTED NOT DETECTED [facility] COMMENT [facility] TRICHOMONAS VAGINALIS (TV), TMA NOT DETECTED NOT DETECTED [facility] Vaginal Vaginal structure / Unknown 04/26/2023 4:22 PM EST 04/28/2023 12:58 AM EST Narrative [facility] - 04/28/2023 2:24 PM EST Michelle species C. albicans, C. tropicalis, C. parapsilosis, and/or C. dubliniensis can be detected, but not differentiated, in the Michelle spp. result. For additional information, please refer to https://education.Tagrule/faq/WQD266 (This link is being provided for information/ educational purposes only.) [facility] - NO BLOOD DRAW Final Result [facility] [address] [address], [facility] [address] [phone] from Last 3 Months or Most Recently Relevant to Health Maintenance Insurance [facility] [address] [employer] Care Teams Milk Route Deliverer Relationship Specialty Start Date End Date Krystal Cleveland PA-C [address] [place] [address] PCP - General FAMILY MEDICINEVINNY 10/23/21
--- OUTSIDE RECORDS SUMMARY | 2024-03-27 15:41 | XMS_ITS | Encounter Summary ---
Author Organization [employer] Address [address] [facility] [address], [place] [address] Care Team Providers Care Apprenticeship Training Representative Name Role Phone Caron Marrufo MD Primary Care Provider [phone]- [phone] Reason for Visit * Reason Onset Date Comments Appointment Request 03/27/2024 Encounter Details Date Type Department Care Team (Late st Contact Info) Description 03/27/2024 Telephone [facility] [address] [place] [address] [phone] Caron Marrufo MD [address] [place] [address] [phone] Appointment Request Social History Tobacco Use Types Packs/Day Years [...] AM EDT documented as of this encounter Miscellaneous Notes * Telephone Encounter - Abigail Barahona MA - 03/27/2024 9:19 AM EST Contacted pt per pcp's request, couldn't get a hold of pt so I had to M expressing to give us a call back. LB documented in this encounter Plan of Treatment Upcoming Encounters Date Type Department Care Team (Late st Contact Info) Description 04/21/2024 10:00 AM EST Office Visit [facility] [address] [place] [address] [phone] Caron Marrufo MD [address] [place] [address] documented as of this encounter Visit Diagnoses Not on filedocumented in this encounter Care Teams Apprenticeship Training Representative Relationship Specialty Start Date End Date Caron Marrufo MD [address] [place] [address] PCP - General Family Medicine 12/23/23 documented as of this encounter
--- OUTSIDE RECORDS SUMMARY | 2024-03-27 15:41 | XMS_ITS | Encounter Summary ---
Author Organization [employer] Address 75 [facility] [address] [place] [address] Care Team Providers Care News Internship Name Role Phone Caron Marrufo MD Primary Care Provider +1- [phone] Encounter Details Date Type Department Care Team (Latest Contact Info) Description 03/23/2024 Travel Social History Tobacco Use Types Packs/Day [...] Description 04/21/2024 10:00 AM EST Office Visit [facility] [address] [place] [phone] Caron Marrufo MD [address] [place] [phone] documented as of this encounter Visit Diagnoses Not on filedocumented in this encounter Care Teams News Internship Relationship Specialty Start Date End Date Caron Marrufo MD [address] [place] [phone] PCP - General Family Medicine 12/23/23 documented as of this encounter
--- OUTSIDE RECORDS SUMMARY | 2024-03-27 15:42 | XMS_ITS | Encounter Summary ---
Author Organization [employer] Address [address] [facility] [address] [place] [address] Care Team Providers Care Director Oracle Name Role Phone Caron Marrufo MD Primary Care Provider [phone]- [phone] Reason for Visit * Reason Comments Abdominal Pain Suprapubic pain Encounter Details Date Type Department Care Team (Late st Contact Info) Description 03/25/2024 11:40 AM EST Office Visit [facility] [address] [place] [address] [phone] Name, MD Viraj [address] [place] [address] Suprapubic pain (Primary Dx) Social History Tobacco Use Types Packs/Day Years [...] Sign Reading Time Taken Comments Blood Pressure 111/73 03/25/2024 11:05 AM EST Pulse 88 03/25/2024 11:05 AM EST Temperature 36.9 ??C (98.4 ??F) 03/25/2024 1 1:05 AM EST Respiratory Rate 14 03/25/2024 11:0 5 AM EST Oxygen Saturation 100% 03/25/2024 11: 05 AM EST Inhaled Oxygen Concentration - - Weight 50.7 kg (111 lb 12.8 oz) 025 11:05 AM EST Height - - Body Mass Index - - documented in this encounter Progress Notes * Viraj Rendon MD - 03/25/2024 11:40 AM EST Subjective Patient ID: Kelvin Toure is a 24 y.o. female who presents for Abdominal Pain (Suprapubic pain). Patient comes with a week of suprapubic pain mostly on the left side She tells me it feels similar to the pain she has at the onset of her menstrual period but her menses stopped day before yesterday She denies any fever, no dysuria, no vaginal discharge She is sexually active with one male partner She is up to date with her pap smears and is due to see KELP CUTTER next month Review of Systems Constitutional: Negative for chills and fever. HENT: Negative for sore throat. Respiratory: Negative for cough, shortness of breath and wheezing. Cardiovascular: Negative for chest pain, palpitations and leg swelling. Genitourinary: See HPI Visit Vitals BP 111/73 Pulse 88 Temp 98.4 ??F (36.9 ??C) (Oral) Resp 14 Wt 111 lb 12.8 oz (50.7 kg) SpO2 100% Objective Physical Exam Constitutional: Appearance: Normal appearance. Cardiovascular: Rate and Rhythm: Normal rate and regular rhythm. Heart sounds: No murmur heard. No gallop. Pulmonary: Effort: Pulmonary effort is normal. No respiratory distress. Breath sounds: Normal breath sounds. No wheezing. Abdominal: General: There is no distension. Tenderness: There is no abdominal tenderness. Musculoskeletal: Right lower leg: No edema. Left lower leg: No edema. Neurological: Mental Status: She is alert. Latest Reference Range & Units 03/23/24 11:54 03/25/24 11:19 Color, UA Yellow Specific [place], UA 1.020 pH, UA 7.0 Ketones, UA Positive Protein, UA Moderate Nitrite, UA Negative, None Detected Negative RBC, UA Negative, None Detected Positive ! Clarity, UA Hazy Glucose, UA Negative Leukocytes, UA Negative, Rare, Trace Moderate ! Bilirubin UA Negative Urobilinogen, UA 1.0 HCG UR QUAL Negative, Indeterminate, None Detected, Invalid, Specimen unsatisfactory for evaluation, Weakly Positive Negative QC Media Lot # [id number] !: Data is abnormal Assessment/Plan Diagnoses and all orders for this visit: Suprapubic pain Comments: I will treat the patient for possible UTI with Bactrim She is recommended to drink lots of fluids Check testing listed below Further recommendation based on the results and the response to the med. Orders: - POCT Urinalysis - Urinalysis, Complete, with Reflex to Culture; Future - Chlamydia/N. Gonorrhoeae RNA, TMA, Urogenitial - Bacterial Vaginosis Panel Other orders - sulfamethoxazole-trimethoprim (Bactrim DS) 800-160 MG tablet; Take 1 tablet by mouth 2 times daily for 3 days. documented in this encounter Plan of Treatment Upcoming Encounters Date Type Department Care Team (Late st Contact Info) Description 04/21/2024 10:00 AM EST Office Visit [facility] [address] [place] [phone] Caron Marrufo MD [address] [place], [place] [phone] Scheduled Orders Name Type Priority Associated Diagnoses Orde r Schedule Urinalysis, Complete, with Reflex to Culture Lab Routine Suprapubic pain Expected: 03/25/2024 (Approximate), Expires: 03/25/2025 documented as of this encounter Procedures Procedure Name Priority Date/Time Associated Diagnosis Comments BACTERIAL VAGINOSIS PANEL Routine 03/25/2024 12:16 PM EST Suprapubic pain CHLAMYDIA/N. GONORRHOEAE RNA, TMA, UROGENITAL Routine 03/25/2024 12:16 PM EST Suprapubic pain POCT URINALYSIS DIPSTICK Routine 03/25/2024 11:19 AM EST Suprapubic pain documented in this encounter Results * (ABNORMAL) Bacterial Vaginosis Panel (03/25/2024 12:16 PM EST) TRICHOMONAS VAGINALIS DETECTION BY PCR NOT DETECTED Not Detect [facility] BACTERIAL VAGINOSIS DETECTION BY PCR POSITIVE(A) Negative [facility] Comment:The BV organism targ ets of [...] DETECTION BY PCR NOT DETECTED Not Detect [facility] Michelle glab krusei PCR NOT DETECTED Not Detect [facility] Swab Vaginal structure / Unknown 03/25/2024 12:16 PM EST 03/25/2024 1:32 PM EST us Viraj Name MD LAB MICROBIOLOGY - GENERAL ORDER TRAVON Final Result [facility] [address] [place] [phone] * (ABNORMAL) Chlamydia/N. Gonorrhoeae RNA, TMA, Urogenitial (03/25/2024 12:16 PM EST) CT PCR DETECTED(A) Not Detect. [facility] Comment:Detected results may be observed after [...] the ordering clinician orclinical facility to [facility] required by state law. NG PCR NOT DETECTED Not Detect. [facility] Comment:A not detected test result does [...] PM EST 03/25/2024 1:32 PM EST Narrative [facility] - 03/25/2024 4:14 PM EST Vaginal us Viraj Rendon MD LAB MICROBIOLOGY - GENERAL ORDER TRAVON Final Result [facility] [address] [place] [phone] * (ABNORMAL) POCT Urinalysis (03/25/2024 11:19 [...] Date Urine 03/25/2024 11:1 9 AM EST us Viraj Rendon MD POINT OF CARE TEST ENTER/EDIT OR DERABLES Final Result documented in this encounter Visit Diagnoses Diagnosis Suprapubic pain- Primary Abdominal pain, other specified site documented in this encounter Care Teams Director Oracle Relationship Specialty Start Date End Date Caron Marrufo MD [address] [place] [phone] PCP - General Family Medicine 12/23/23 documented as of this encounter
--- OUTSIDE RECORDS SUMMARY | 2024-03-27 15:42 | XMS_ITS | Encounter Summary ---
Author Organization [employer] Address 75 [facility] 7t [place] [address] Care Team Providers Care Resource Analyst Name Role Phone Caron Marrufo MD Primary Care Provider +1- [phone] Encounter Details Date Type Department Care Team (Late st Contact Info) Description 03/26/2024 Telephone [facility] [address] [place], [place] [phone] Name, MD Viraj [address] [place] [address] Social History Tobacco Use Types Packs/Day Years Used Date Smoking Tobacco: Never Assessed Comments Unknown Sex and Gender Information Value Date Recorded Sex Assigned at Female 06/26/2022 10:25 AM EDT Legal Sex Female 10:24 AM EDT Gender Identity Female 06/26/2022 10:25 AM EDT Sexual Orientation Straight 06/26/2022 10 :25 AM EDT documented as of this encounter Miscellaneous Notes * Telephone Encounter - Viraj Rendon MD - 03/26/2024 8:31 AM EST I called the patient to discuss the results. She has tested positive for Chlamydia I will send a course of doxy to the pharmacy, stop the Bactrim I asked to come tomorrow for STI testing I explained this is STI and she should inform her partner to get tested and treated. Latest Reference Range & Units 03/23/24 11:54 HCG UR QUAL Negative, Indeterminate, None Detected, Invalid, Specimen unsatisfactory for evaluation, Weakly Positive Negative QC Media Lot # [id number] Latest Reference Range & Units 03/25/24 12:16 BACTERIAL VAGINOSIS DETECTION BY PCR Negative POSITIVE ! BACTERIAL VAGINOSIS PANEL Rpt ! Michelle glab krusei PCR Not Detect NOT DETECTED MICHELLE GROUP DETECTION BY PCR Not Detect NOT DETECTED CT PCR Not Detect. DETECTED ! NG PCR Not Detect. NOT DETECTED TRICHOMONAS VAGINALIS DETECTION BY PCR Not Detect NOT DETECTED !: Data is abnormal Rpt: View report in Results Review for more information documented in this encounter Plan of Treatment Upcoming Encounters Date Type Department Care Team (Late st Contact Info) Description 04/21/2024 10:00 AM EST Office Visit [facility] [address] [place] [address] Caron Marrufo MD [address] [place] [address] Scheduled Orders Name Type Priority Associated Diagnoses Orde r Schedule HIV-1/2 Antigen and Antibodies, Fourth Generation, with Reflexes Lab Routine Chlamydia infection Expected: 03/26/2024 (Approximate), Expires: 03/26/2025 RPR (Monitor) with Reflex to??Titer Lab Routine Chlamydia infection Expected: 03/26/2024, Expires: 03/26/2025 Hepatitis C Antibody with Reflex to HCV, RNA, Quantitative, Real-Time PCR Lab Routine Chlamydia infection Expected: 03/26/2024, Expires: 03/26/2025 Hepatitis B surface antigen, EIA Lab Routine Chlamydia infection Expected: 03/26/2024 (Approximate), Expires: 03/26/2025 Hepatitis B Surface Antibody, Qualitative Lab Routine Chlamydia infection Expected: 03/26/2024 (Approximate), Expires: 03/26/2025 documented as of this encounter Visit Diagnoses Diagnosis Chlamydia infection- Primary Unspecified chlamydial infection, in conditions classified elsewhere and of unspecified site documented in this encounter Care Teams Resource Analyst Relationship Specialty Start Date End Date Caron Marrufo MD [address] [place] [phone] PCP - General Family Medicine 12/23/23 documented as of this encounter
--- OUTSIDE RECORDS SUMMARY | 2024-03-27 15:42 | XMS_ITS | Encounter Summary ---
Author Organization [employer] Address 75 [facility] 7t [place] [address] Care Team Providers Care Network Architect Name Role Phone Caron Marrufo MD Primary Care Provider +1- [phone] Encounter Details Date Type Department Care Team (Latest Contact Info) Description 03/23/2024 2:00 PM EST Clinical Support [address] [phone] Bre Polanco RN Encounter for contraceptive management, unspecified type Social History Tobacco Use Types Packs/Day Years Used Date Smoking Tobacco: Never Assessed Comments Unknown Sex and Gender Information Value Date Recorded Sex Assigned at Female 06/26/2022 10:25 AM EDT Legal Sex Female 10:24 AM EDT Gender Identity Female 06/26/2022 10:25 AM EDT Sexual Orientation Straight 06/26/2022 10 :25 AM EDT documented as of this encounter Progress Notes * Bre Polanco RN - 03/23/2024 2:00 PM EST Pt is interested in contraceptive care and is interested in getting an Nexplanon inserted. Pt has an appointment on WednesdayMarch 27 with Liat Salcedo at [facility] for insertion. Provider wanted POCT urine to confirm negative result before proceeding. Negative result confirmed and entered into results documented in this encounter Plan of Treatment Upcoming Encounters Date Type Department Care Team (Late st Contact Info) Description 04/21/2024 10:00 AM EST Office Visit [address] [address] Caron Marrufo MD [address] [place] [address] [phone] documented as of this encounter Procedures Procedure Name Priority Date/Time Associated Diagnosis Comments POCT , URINE Routine 03/23/2024 11:54 AM EST Encounter for contraceptive management, unspecified type documented in this encounter Results * POCT Urine (03/23/2024 11:54 AM EST) Preg Test, Ur Negative Negative, Indeterminate, None Detected, Invalid, Specimen unsatisfactory for evaluation, Weakly Positive QC Media Lot # [id number] Lot# Expiration Date Urine 03/23/2024 11:5 4 AM EST Caron Marrufo MD POINT OF CARE TEST ENTER/E DIT ORDERABLES Final Result documented in this encounter Visit Diagnoses Diagnosis Encounter for contraceptive management, unspecified type documented in this encounter Care Teams Network Architect Relationship Specialty Start Date End Date Caron Marrufo MD [address] [place] [address] PCP - General Family Medicine 12/23/23 documented as of this encounter
--- OUTSIDE RECORDS SUMMARY | 2024-03-27 15:42 | XMS_ITS | Encounter Summary ---
Author Organization [employer] Address 75 [facility] 7 [place] [address] Care Team Providers Care Flame Hardener Name Role Phone Caron Marrufo MD Primary Care Provider +1- [phone] Encounter Details Date Type Department Care Team (Latest Contact Info) Description 03/25/2024 Travel Social History Tobacco Use Types Packs/Day [...] Description 04/21/2024 10:00 AM EST Office Visit [facility] [address] [place] [address] Caron Marrufo MD [address] [place] [address] documented as of this encounter Visit Diagnoses Not on filedocumented in this encounter Care Teams Flame Hardener Relationship Specialty Start Date End Date Caron Marrufo MD [address] [place] [address] PCP - General Family Medicine 12/23/23 documented as of this encounter
[2024-03-28 08:38] LABS: HBS Num1 18.94 mIU/mL (0-7.99); HBsAGNum1 0.36 S/CO (0.00-0.99); HIV AB/AG Nonreactive (Nonreactive); HIV Num 1 0.07 S/CO (0.00-0.99); Hepatitis B Surface Antigen Negative (Negative); ~HepC Num1 0.21 S/CO (0.00-0.79); ~Hepatitis B Surface Antibody REACTIVE (Nonreactive); ~Hepatitis C Antibody Nonreactive (Nonreactive)
[2024-03-29 16:32] LABS: RPR Rapid Plasma Reagin NON-REACTIVE (NON-REACTIVE)
== END 2024-03-27 14:04 | disposition home or self-care (01) ==
LOC: HO.HHCL 14:03
PROVIDERS: Visit Provider Internal Medicine Geriatric Medicine
DX: Z11.4 Encounter for screening for human immunodeficiency virus [HIV] (principal); A74.9 Chlamydial infection, unspecified
CPT/HCPCS: 36415; 86592; 86706; 86803; 87340; 87389

== ENCOUNTER 2024-04-21 11:01 | Outpatient (REF) | payer MEDICAID, SELFPAY ==
--- OUTSIDE RECORDS SUMMARY | 2024-04-21 12:44 | XMS_ITS | Encounter Summary ---
Author Organization [employer] Address 75 [facility] 7t [place] [address] Care Team Providers Care Earthmoving Labourer Name Role Phone Caron Marrufo MD Primary Care Provider +1- [phone] Reason for Visit * Reason Onset Date Comments Results 03/28/2024 Encounter Details Date Type Department Care Team (Late st Contact Info) Description 03/28/2024 Telephone [facility] MED[facility]INE [address] [place] [address] [phone] Caron Marrufo MD [address] [place], [place] [phone] Results Social History Tobacco Use Types Packs/Day Years [...] encounter Miscellaneous Notes * Telephone Encounter - Carey Boswer RN - 03/28/2024 2:04 PM EST TC from pt requesting call back regarding Results. Type of results: Hepatitis B Hepatitis B Hepatitis C Antibody HIV-1/2 Antigen and Antibodies POCT Urine Date when done: 03/27/2024 Facility: [facility] TC placed to patient was negative, all other labs were normal. Pt was worried that she only took 1 antibiotic yesterday she took her first one at 5 pm. Advised pt that ok that she tok only 1 dose yesterday just to continue taking BID until Rxis complete. * Telephone Encounter - Paul Oliver - 03/28/2024 10:33 AM EST TC from pt requesting call back regarding Results. Type of results: Hepatitis B Hepatitis B Hepatitis C Antibody HIV-1/2 Antigen and Antibodies POCT Urine Date when done: 03/27/2024 Facility: [facility] documented in this encounter Plan of Treatment Upcoming Encounters Date Type Department Care Team (Late st Contact Info) Description 05/26/2024 10:00 AM EDT Procedure Visit [facility] [address] [place] [address] Caron Marrufo MD [address] [place] [address] 06/19/2024 9:30 AM EDT Clinical Support [address] [address] documented as of this encounter Visit Diagnoses Not on filedocumented in this encounter Care Teams Earthmoving Labourer Relationship Specialty Start Date End Date Caron Marrufo MD [address] [place] [phone] PCP - General Family Medicine 12/23/23 documented as of this encounter
--- OUTSIDE RECORDS SUMMARY | 2024-04-21 12:44 | XMS_ITS | Encounter Summary ---
Author Organization [employer] Address 75 [facility] 7t [place] [address] Care Team Providers Care Demolition Worker Name Role Phone Caron Marrufo MD Primary Care Provider +1- [phone] Encounter Details Date Type Department Care Team (Latest Contact Info) Description 03/23/2024 2:00 PM EST Clinical Support [facility] MEDICINE [address] [place] [address] Bre Polanco RN Encounter for contraceptive management, [...] on WednesdayMarch 27 with Liat Salcedo at [facility] for insertion. Provider wanted POCT urine to confirm negative result before proceeding. Negative result confirmed and entered into results documented in this encounter Plan of Treatment Upcoming Encounters Date Type Department Care Team (Late st Contact Info) Description 05/26/2024 10:00 AM EDT Procedure Visit [address] [address] Caron Marrufo MD [address] [place], [place] [phone] 06/19/2024 9:30 AM EDT Clinical Support [facility]INE [address] [place] [address] documented as of this encounter Procedures Procedure [...] type documented in this encounter Care Teams Demolition Worker Relationship Specialty Start Date End Date Caron Marrufo MD [address] [place] [address] PCP - General Family Medicine 12/23/23 documented as of this encounter
--- OUTSIDE RECORDS SUMMARY | 2024-04-21 12:44 | XMS_ITS | Encounter Summary ---
Author Organization [employer] Address 75 [facility] [place], [place] [address] Care Team Providers Care Cinder Pit Worker Name Role Phone Caron Marrufo MD Primary Care Provider +1- [phone] Reason for Visit * Reason Onset Date Comments Appointment Request 03/27/2024 Encounter Details Date Type Department Care Team (Late st Contact Info) Description 03/27/2024 Telephone [facility]INE [address] [place], [place] [phone] Caron Marrufo MD [address] [place], [place] [phone] Appointment Request Social History Tobacco Use Types [...] hold of pt so I had to LVM expressing to give us a call back. LB documented in this encounter Plan of Treatment Upcoming Encounters Date Type Department Care Team (Late st Contact Info) Description 05/26/2024 10:00 AM EDT Procedure Visit [address] [address] Caron Marrufo MD [address] [place] [address] 06/19/2024 9:30 AM EDT Clinical Support [address] [address] documented as of this encounter Visit Diagnoses Not on filedocumented in this encounter Care Teams Cinder Pit Worker Relationship Specialty Start Date End Date Caron Marrufo MD [address] [place] [address] PCP - General Family Medicine 12/23/23 documented as of this encounter
--- OUTSIDE RECORDS SUMMARY | 2024-04-21 12:44 | XMS_ITS | Encounter Summary ---
Author Organization [employer] Address 75 [facility] 7t [place] [address] Care Team Providers Care Order Caller Name Role Phone Caron Marrufo MD Primary Care Provider +1- [phone] Encounter Details Date Type Department Care Team [...] Description 05/26/2024 10:00 AM EDT Procedure Visit [facility] MEDICINE [address] [place] [address] Caron Marrufo MD [address] [place] [address] 06/19/2024 9:30 AM EDT Clinical Support [facility] MED[facility]INE [address] [place] [address] documented as of this encounter Visit Diagnoses Not on filedocumented in this encounter Care Teams Order Caller Relationship Specialty Start Date End Date Caron Marrufo MD [address] [place] [phone] PCP - General Family Medicine 12/23/23 documented as of this encounter
--- OUTSIDE RECORDS SUMMARY | 2024-04-21 12:44 | XMS_ITS | Encounter Summary ---
Author Organization [email or web address] Address 75 [facility] 7t [place] [address] Care Team Providers Care Performance Test Architect Name Role Phone Caron Marrufo MD Primary Care Provider +1- [phone] Reason for Visit * Reason Comments Nexplanon Insertion Encounter Details Date Type Department Care Team (Latest Contact Info) Description 03/27/2024 1:05 PM EST Procedure Visit [facility] MEDICINE [address] [place] [address] [phone] Caron Marrufo MD [address] [place], [place] [phone] Family planning (Primary Dx); Dietary counseling; Exercise [...] Description 05/26/2024 10:00 AM EDT Procedure Visit [facility] [address] [place] [address] Caron Marrufo MD [address] [place] [address] 06/19/2024 9:30 AM EDT Clinical Support [address] [address] documented as of this encounter Procedures Procedure Name Priority Date/Time Associated Diagnosis Comments POCT , URINE Routine 03/27/2024 1:51 PM EST Encounter for contraceptive management, unspecified type documented in this encounter Results * POCT Urine (03/27/2024 1:51 PM EST) Preg Test, Ur Negative Negative, Indeterminate, None Detected, Invalid, Specimen unsatisfactory for evaluation, Weakly Positive QC Media Lot # [id number] Lot# Expiration Date [id number] Urine 03/27/2024 1:51 PM EST Caron Marrufo [...] Deltoid documented in this encounter Care Teams Performance Test Architect Relationship Specialty Start Date End Date Caron Marrufo MD [address] [place] [address] PCP - General Family Medicine 12/23/23 documented as of this encounter
--- OUTSIDE RECORDS SUMMARY | 2024-04-21 12:44 | XMS_ITS | Encounter Summary ---
Author Organization [employer] Address 75 [facility] 7t [place] [address] Care Team Providers Care Waiter/Waitress Bar Name Role Phone Caron Marrufo MD Primary Care Provider +1- [phone] Reason for Visit * Reason Comments Abdominal Pain Suprapubic pain Encounter Details Date Type Department Care Team (Late st Contact Info) Description 03/25/2024 11:40 AM EST Office Visit [facility] [address] [place] [address] [phone] NameViraj MD [address] [place] [address] Suprapubic pain (Primary Dx) Social History Tobacco [...] pap smears and is due to see CORROSION CONTROL FITTER next month Review of Systems Constitutional: Negative [...] 11:54 03/25/24 11:19 Color, UA Yellow Specific Broadus, UA 1.020 pH, UA 7.0 Ketones, UA Positive Protein, UA Moderate Nitrite, UA Negative, None Detected Negative RBC, UA Negative, None Detected Positive ! Clarity, UA Hazy Glucose, UA Negative Leukocytes, UA Negative, Rare, Trace Moderate ! Bilirubin UA Negative Urobilinogen, UA 1.0 HCG UR QUAL Negative, Indeterminate, None Detected, Invalid, Specimen unsatisfactory for evaluation, Weakly Positive Negative QC Media Lot # [id number] !: Data is abnormal Assessment/Plan Diagnoses and [...] Description 05/26/2024 10:00 AM EDT Procedure Visit [facility]INE [address] [place] [address] Caron Marrufo MD [address] [place] [address] 06/19/2024 9:30 AM EDT Clinical Support [address] [address] Scheduled Orders Name Type Priority Associated Diagnoses [...] DETECTION BY PCR NOT DETECTED Not Detect [facility] BACTERIAL VAGINOSIS DETECTION BY PCR POSITIVE(A) Negative [facility] Comment:The BV organism targ ets [...] DETECTION BY PCR NOT DETECTED Not Detect [facility] Michelle glab krusei PCR NOT DETECTED Not Detect [facility] Swab Vaginal structure / Unknown 03/25/2024 12:16 PM EST 03/25/2024 1:32 PM EST us Viraj Name MD LAB MICROBIOLOGY - GENERAL ORDER TRAVON Final Result [facility] [address] [place] [phone] * (ABNORMAL) Chlamydia/N. Gonorrhoeae RNA, TMA, Urogenitial (03/25/2024 12:16 PM EST) CT PCR DETECTED(A) Not Detect. [facility] Comment:Detected results may be observed [...] the ordering clinician orclinical facility to the [facility] required by state law. NG PCR NOT DETECTED Not Detect. [facility] Comment:A not detected test result [...] PM EST 03/25/2024 1:32 PM EST Narrative [facility] - 03/25/2024 4:14 PM EST Vaginal us Viraj Rendon MD LAB MICROBIOLOGY - GENERAL ORDER TRAVON Final Result Performing Organization Address City/State/[facility] Co de Phone Number [facility] [address] [place] [phone] * (ABNORMAL) POCT Urinalysis (03/25/2024 11:19 [...] site documented in this encounter Care Teams Waiter/Waitress Bar Relationship Specialty Start Date End Date Caron Marrufo MD [address] [place] [address] PCP - General Family Medicine 12/23/23 documented as of this encounter
--- OUTSIDE RECORDS SUMMARY | 2024-04-21 12:44 | XMS_ITS | Encounter Summary ---
Author Organization [employer] Address [address] [facility] 7t [place] [address] Care Team Providers Care Water Ski Assembler Name Role Phone ForestCaron rae MD Primary Care Provider +1- [phone] Encounter Details Date Type Department Care Team (Late st Contact Info) Description 03/26/2024 Telephone [facility] MEDICINE [address] [place] [address] [phone] Name, MD Viraj [address] [place] [address] Social History Tobacco Use Types Packs/Day Years [...] Description 05/26/2024 10:00 AM EDT Procedure Visit [facility] MEDICINE [address] [place] [address] Caron Marrufo MD [address] [place] [address] [phone] 06/19/2024 9:30 AM EDT Clinical Support [address] [address] documented as of this encounter Procedures Procedure Name Priority Date/Time Associated Diagnosis Comments RPR (MONITOR) W/REFL TITER Routine 03/27/2024 2:04 PM EST Chlamydia infection HEPATITIS C AB W/REFL TO HCV RNA, QN, PCR Routine 03/27/2024 2:00 PM EST Chlamydia infection HEPATITIS B SURFACE ANTIGEN, EIA Routine 03/27/2024 2:00 PM EST Chlamydia infection HIV 1/2 ANTIGEN/ANTIBODY, FOURTH GENERATION W/RFL Routine 03/27/2024 2:00 PM EST Chlamydia infection HEPATITIS B SURFACE ANTIBODY, QUALITATIVE Routine 03/27/2024 2:00 PM EST Chlamydia infection documented in this encounter Results * RPR (Monitor) with Reflex to??Titer (03/27/2024 2:04 PM EST) RPR (Monitor) w/Refl Titer NON-REACTI VE NON-REACT [facility] Comment:THIS TEST WAS PERFOR MED AT:[employer] [place] [id number] ROBERSON MD Rapid Plasma Reagin Ab Titer TNP [facility] Blood Venous blood specimen / Unknown 03/27/2024 2:04 PM EST 03/27/2024 4:00 PM EST us Viraj Rendon MD LAB BLOOD ORDERABLES Final Resul t Performing Organization Address [facility] Co de Phone Number [facility] [address] [place] [phone] * Hepatitis B Surface Antibody, Qualitative (03/27/2024 2:00 PM EST) ~Hepatitis B Surface Antibody REACTIVE Nonreactive [facility] Comment:REACTIVE: > 11.99 mI U/mL Blood Venous blood specimen / Unknown 03/27/2024 2:00 PM EST 03/27/2024 4:00 PM EST us Viraj Rendon MD LAB BLOOD ORDERABLES Final Resul t Performing Organization Address [facility] Co de Phone Number [facility] [address] [place] [phone] * Hepatitis B surface antigen, EIA (03/27/2024 2:00 PM EST) Pathologist [facility] Hepatitis B Surface Ag Negative Negative [facility] Blood Venous blood specimen / Unknown 03/27/2024 2:00 PM EST 03/27/2024 4:00 PM EST us Viraj Rendon MD LAB BLOOD ORDERABLES Final Resul t Performing Organization Address [facility] de Phone Number [facility] [address] [place] [phone] * Hepatitis C Antibody with Reflex to HCV, RNA, Quantitative, Real-Time PCR (03/27/2024 2:00 PM EST) Pathologist [facility] Hepatitis C Antibody Nonreactive Nonreactive [facility] Comment:Antibodies to HCV no t detected; does not exclude early acuteHCV infection. Blood Venous blood specimen / Unknown 03/27/2024 2:00 PM EST 03/27/2024 4:00 PM EST Viraj Rendon MD LAB BLOOD ORDERABLES Final Resul t Performing Organization Address [facility]/ZIP Co de Phone Number [facility] [address] [place] [phone] * HIV-1/2 Antigen and Antibodies, Fourth Generation, with Reflexes (03/27/2024 2:00 PM EST) [facility] HIV AB/AG Nonreactive Nonreactive [facility] Comment:HIV-1 p24 Ag and/or HIV-1/HIV-2 Ab not detected.A test result that is nonreactive does not exclude thepossibility of exposure to or infection with HIV-1 and/orHIV-2. Nonreactive results in this assay for individualswith prior exposure to HIV-1 and/or HIV-2 may be due toantigen and antibody levels that are below the limit ofdetection of this assay.The Norse HIV Ag/Ab Combo assay result andsupplemental assay results should be interpreted inconjunction with the patient's clinical presentation,history and other laboratory results. If the results areinconsistent with clinical evidence, additional testing issuggested to confirm the result. Blood Venous blood specimen / Unknown 03/27/2024 2:00 PM EST 03/27/2024 4:00 PM EST Viraj Rendon MD LAB BLOOD ORDERABLES Final Resul t Performing Organization Address City/[facility]/ZIP Co de Phone Number [facility] [address] [place] [phone] documented in this encounter Visit Diagnoses Diagnosis Chlamydia infection- Primary Unspecified chlamydial infection, in conditions classified elsewhere and of unspecified site documented in this encounter Care Teams Water Ski Assembler Relationship Specialty Start Date End Date Caron Marrufo MD [address] [place] [address] PCP - General Family Medicine 12/23/23 documented as of this encounter
--- OUTSIDE RECORDS SUMMARY | 2024-04-21 12:44 | XMS_ITS | Encounter Summary ---
Author Organization [employer] Address 75 [facility] 7t [place] [address] Care Team Providers Care Domain Architect Name Role Phone Caron Marrufo MD Primary Care Provider +1- [phone] Encounter Details Date Type Department Care Team [...] Description 05/26/2024 10:00 AM EDT Procedure Visit [facility] MEDICINE [address] [place] [address] Caron Marrufo MD [address] [place] [address] 06/19/2024 9:30 AM EDT Clinical Support [facility] [address] [place] [address] documented as of this encounter Visit Diagnoses Not on filedocumented in this encounter Care Teams Domain Architect Relationship Specialty Start Date End Date Caron Marrufo MD [address] [place] [address] PCP - General Family Medicine 12/23/23 documented as of this encounter
--- OUTSIDE RECORDS SUMMARY | 2024-04-21 12:44 | XMS_ITS | Encounter Summary ---
Author Organization [employer] Address 75 [facility] 7t [place] [address] Care Team Providers Care Mechanic Welder Name Role Phone Caron Marrufo MD Primary Care Provider +1- [phone] Encounter Details Date Type Department Care Team [...] Description 05/26/2024 10:00 AM EDT Procedure Visit [facility]ICINE [address] [place] [phone] Caron Marrufo MD [address] [place] [address] 06/19/2024 9:30 AM EDT Clinical Support [facility] [address] [place] [phone] documented as of this encounter Visit Diagnoses Not on filedocumented in this encounter Care Teams Mechanic Welder Relationship Specialty Start Date End Date Caron Marrufo MD [address] [place] [address] PCP - General Family Medicine 12/23/23 documented as of this encounter
--- OUTSIDE RECORDS SUMMARY | 2024-04-21 12:44 | XMS_ITS | Clinical Summary ---
Author Organization [employer] Address [address] [facility] 7t [place] [address] Care Team Providers Care Oncology Consultant Name Role Phone Caron Marrufo MD Primary Care Provider [phone]- [phone] Allergies No known active allergies Medications medroxyPROGEST ERone (Depo-Provera) 150 MG/ML injectionIndic ations:Family planning Inject 1 mL (150 mg) into the muscle every 3 (three) months. 1 mL 3 03/27/19 25 Active sulfamethoxazo le-trimethopri m (Bactrim DS) 800-160 MG tablet Take 1 tablet by mouth 2 times daily for 3 days. 6 tablet 03/25/19 25 025 Discontinued(Th erapy completed) doxycycline (Vibra-Tabs) 100 MG tablet Take 1 tablet (100 mg) by mouth 2 times daily for 7 days. Take with a full glass of water and do not lie down for at least 30 minutes after. 14 tablet 03/26/19 25 025 medroxyPROGEST ERone (Depo-Provera) 150 MG/ML injectionIndic ations:Family planning Inject 1 mL (150 mg) into the muscle every 3 (three) months. 1 mL 3 03/27/19 25 025 Discontinued Hospital, Clinic, or Other Facility Administered Medication Ordered Dose Route Frequency Start Date End Date Status medroxyPROGESTERone (Depo-Provera) injection 150 mgIndications:Family planning 150 mg IM Once 03/27/2024 03/27/2024 Ended Active Problems Problem Noted Date Diagnosed Date Iron deficiency anemia 04/21/2024 Overview (04/21/2024): No results found for: FERRITIN , HGB , HEMATOCRIT , IRONTOTAL Hx of iron deficiency. -ordered iron labs 04/21/24 Assessment & Plan (04/21/2024 10:27 AM EST): Hx of iron deficiency. -ordered iron labs 04/21/24 Other fatigue 04/21/2024 Overview (04/21/2024): Hx of iron deficiency. Reports increasingly feeling tired. No acute concerns or warning signs. -ordered routine labs 04/21/24 Assessment & Plan (04/21/2024 10:32 AM EST): Hx of iron deficiency. Reports increasingly feeling tired. No acute concerns or warning signs. -ordered routine labs 04/21/24 Chlamydia 03/27/2024 Other specified health status 03/27/2024 Overview (04/21/2024): -next comprehensive annual evaluation due after 04/21/25 -eye care facilitated by [facility] -dental home encouraged -simon care proxy filed 03/27/24 Assessment & Plan (04/21/2024 10:23 AM EST): -next comprehensive annual evaluation due after 04/21/25 -eye care facilitated by [facility] -dental home encouraged -simon care proxy filed [...] Some back pain, will follow with [facility]. Encounters Date Type Department Care Team Description 04/21/2024 10:00 AM EST Office Visit [address] [address] Caron Marrufo MD Iron deficiency anemia, unspecified iron deficiency anemia type (Primary Dx); Other fatigue; Routine screening for STI (sexually transmitted infection); Encounter for immunization; Other specified health status 04/21/2024 Travel 04/17/[address] [address] Preeti Townsend MA chartprep 04/07/2024 Patient Outreach [address] [address] Caron Marrufo MD Pre-visit Planning (Pre-visit planning - LVM ) 04/03/[address] [address] Caron Marrufo MD In person triage 03/28/[address] [address] Caron Marrufo MD Results 03/27/2024 1:05 PM EST Procedure Visit [address] [address] Caron Marrufo MD Family planning (Primary Dx); Dietary counseling; Exercise counseling; Other specified health status; Encounter for contraceptive management, unspecified type 03/27/2024 Travel 03/27/[address] [address] Caron Marrufo MD Appointment Request 03/26/2024 Orders Only [facility] External Provider, [facility] 03/26/[address] [address] Viraj Rendon MD 03/25/2024 11:40 AM EST Office Visit [facility] [address] [address] Viraj Rendon MD Suprapubic pain (Primary Dx) 03/25/2024 Travel 03/23/2024 2:00 PM EST Clinical Support [facility] [address] [place] [address] Bre Polanco RN Encounter for contraceptive management, unspecified type 03/23/2024 Travel from Last 3 Months Immunizations Name Administration Dates Next Due DTaP, 5 pertussis antigens 01/26/2006,,08/07/2003,05/06,2002 HPV, Quadrivalent 07/02/2014,12/21/2013,10/05/19 14 Hep A, ped/adol, 2 dose 05/23/2008,10/01/2006 Hep B, Adolescent or Pediatric 12/17/2003,2003,05/02/2003 Hib (PRP-T) 04/27/2003,2002 Influenza injectable quadriv alent preservative free 11/20/2022,12/24/2021 Influenza, IIV3, injectable 03/18/2012 Influenza, seasonal, injecta ble, preservative free 04/21/2024,10/30/2014,12/21/2013 MMR 01/26/2006,05/02/2003 Meningococcal MPSV4 10/04/2013 Pneumococcal Conjugate PCV 13 07/02/2014 Tdap 04/21/2024,10/04/2013 Varicella 01/26/2006,05/02/2003 Family History Medical History Relation Name Comments Diabetes Father's Sister Arthritis Maternal Grandmother Relation Name Status Comments Father's Sister Maternal Grandmother Social History Tobacco Use Types Packs/Day Years Used Date Smoking Tobacco: Never Passive Smoke Exposure: Never Smokeless Tobacco: Never Tobacco Cessation:Counseling Given: Not Answered Alcohol Use Standard Drinks/Week Comments Never 0 (1 standard drink = 0.6 oz pur e alcohol) Depression Answer Date Recorded Patient Health Questionnaire-9 Score 4 04/21/2024 Patient Health Questionnaire-9 Score 4 04/21/2024 Last PHQ-9: Questionnaire Data Not on file 0 04/21/2024 Housing Stability Answer Date Recorded What is your housing situation today? I have umair orta 04/21/[address] you li ve. Do you have problems with any of the following? None of the above 04/21/2024 Food Insecurity Answer Date Recorded Within the past 12 months, y ou worried that your food would run out before you got money to buy more: Never True 2024 Within the past 12 months,th e food you bought just didn't last and you didn't have enough money to get more: Sometimes True 04/21/2024 Transportation Answer Date Recorded In the past 12 months, has l ack of transportation kept you from medical appts, meetings, work or from getting things needed for daily living? No 04/21/2024 Utilities Answer Date Recorded In the past 12 months, has t he [employer], gas, oil or water [employer] threatened to shut off services in your home? I am not sure 04/21/2024 Depression Answer Date Recorded Patient Health Questionnaire-2 Score 1 04/21/2024 Internet Access Answer Date Recorded Internet Access Q1 Yes 04/21/2024 Internet Access Q2 Not on file 04/21/2024 Comments Unknown Sex and Gender Information Value Date Recorded Sex Assigned at Female 06/26/2022 10:25 AM EDT Legal Sex Female 10:24 AM EDT Gender Identity Female 06/26/2022 10:25 AM EDT Sexual Orientation Straight 06/26/2022 10 :25 AM EDT Last Filed Vital Signs Vital Sign Reading Time Taken Comments Blood Pressure 98/59 04/21/2024 10:07 AM EST Pulse 87 04/21/2024 10:07 AM EST Temperature 36.2 ??C (97.1 ??F) 04/21/2024 10:[address] Respiratory Rate 20 04/21/2024 10:07 AM EST Oxygen Saturation 96% 04/21/2024 10:07 AM EST Inhaled Oxygen Concentration - - Weight 54.9 kg (121 lb) 04/21/2024 10:07 AM EST Height 167.6 cm (5' 6 ) 04/21/2024 10:07 AM EST Body Mass Index 19.53 04/21/2024 10:07 AM EST Plan of Treatment Upcoming Encounters Date Type Department Care Team (Late st Contact Info) Description 05/26/2024 10:00 AM EDT Procedure Visit [facility] [address] [place], [place] [phone] Caron Marrufo MD [address] [place], [place] [phone] 06/19/2024 9:30 AM EDT Clinical Support [address] [address] Health Maintenance Due Date Last Done Comments Pap Smear 2023 Chlamydia and Gonorrhea Screening 03/25/2025 03/25/2024 COVID-19 Vaccine ( season) 2025 07/15/2020, 06/16/2020 Postponed from 10/24/2023 (Patient Refused) Family Planning (PISQ) 03/27/2025 03/27/2024 Alcohol/Substance Use Screening 04/21/2025 04/21/2024 Depression Screening 04/21/2025 04/21/2024, 04/21/19 SDOH Screening 04/21/2025 04/21/2024 Tobacco Screening 04/21/2025 04/21/2024 DTaP/Tdap/Td Vaccines (8 - Td or Tdap) 04/21/2034 04/21/2024, 10/04/2013, 01/26/2006, Additional history exists Zoster Vaccines (1 of 2) 01/07/2052 RSV [...] on patient's age to complete this topic HIV Screening Completed 03/27/2024 Hepatitis C Screening Completed 03/27/2024 Influenza Vaccine Completed 04/21/2024, , 12/24/2021, Additional history exists IPV Vaccines Aged Out No longer eligi [...] 03/27/2024 2:04 PM EST Chlamydia infection HEPATITIS B SURFACE ANTIBODY, QUALITATIVE Routine 03/27/2024 2:00 PM EST Chlamydia infection HEPATITIS B SURFACE ANTIGEN, EIA Routine 03/27/2024 2:00 PM EST Chlamydia infection HEPATITIS C AB W/REFL TO HCV RNA, QN, PCR Routine 03/27/2024 2:00 PM EST Chlamydia infection HIV 1/2 ANTIGEN/ANTIBODY, FOURTH GENERATION W/RFL Routine 03/27/2024 2:00 PM EST Chlamydia infection POCT , URINE Routine 03/27/2024 1:51 PM [...] type from Last 3 Months Results * RPR (Monitor) with Reflex to??Titer (03/27/2024 2:04 PM EST) RPR (Monitor) w/Refl Titer NON-REACTI VE NON-REACT GAYLE [facility] Comment:THIS TEST WAS PERFOR MED AT:[facility] [place] [phone] ROBERSON MD Rapid Plasma Reagin Ab Titer TNP [facility] Blood Venous blood specimen / Unknown 03/27/2024 2:04 PM EST 03/27/2024 4:00 PM EST us Viraj Rendon MD LAB BLOOD ORDERABLES Final Resul t Performing Organization Address [facility] Co de Phone Number [facility] [address] [place] [phone] * Hepatitis C Antibody with Reflex to HCV, RNA, Quantitative, Real-Time PCR (03/27/2024 2:00 PM EST) Hepatitis C Antibody Nonreactive Nonreactive [facility] Comment:Antibodies to HCV no t detected; does not exclude early acuteHCV infection. Blood Venous blood specimen / Unknown 03/27/2024 2:00 PM EST 03/27/2024 4:00 PM EST us Viraj Rendon MD LAB BLOOD ORDERABLES Final Resul t Performing Organization Address [facility] Co de Phone Number [facility] [address] [place] [phone] * Hepatitis B surface antigen, EIA (03/27/2024 2:00 PM EST) Hepatitis B Surface Ag Negative Negative [facility] Blood Venous blood specimen / Unknown 03/27/2024 2:00 PM EST 03/27/2024 4:00 PM EST us Viraj Rendon MD LAB BLOOD ORDERABLES Final Resul t Performing Organization Address [facility] Co de Phone Number [facility] [address] [place] [phone] * HIV-1/2 Antigen and Antibodies, Fourth Generation, with Reflexes (03/27/2024 2:00 PM EST) HIV AB/AG Nonreactive Nonreactive [facility] Comment:HIV-1 p24 Ag and/or HIV-1/HIV-2 Ab not detected.A test result that is nonreactive does not exclude thepossibility of exposure to or infection with HIV-1 and/orHIV-2. Nonreactive results in this assay for individualswith prior exposure to HIV-1 and/or HIV-2 may be due toantigen and antibody levels that are below the limit ofdetection of this assay.The [employer] HIV Ag/Ab Combo assay result andsupplemental assay results should be interpreted inconjunction with the patient's clinical presentation,history and other laboratory results. If the results areinconsistent with clinical evidence, additional testing issuggested to confirm the result. Blood Venous blood specimen / Unknown 03/27/2024 2:00 PM EST 03/27/2024 4:00 PM EST us Viraj Rendon MD LAB BLOOD ORDERABLES Final Resul t Performing Organization Address City/[facility]/ZIP Co de Phone Number [facility] [address] [place] [phone] * Hepatitis B Surface Antibody, Qualitative (03/27/2024 2:00 PM EST) Pathologist [facility] ~Hepatitis B Surface Antibody REACTIVE Nonreactive [facility] Comment:REACTIVE: > 11.99 mI U/mL Blood Venous blood specimen / Unknown 03/27/2024 2:00 PM EST 03/27/2024 4:00 PM EST us Viraj Rendon MD LAB BLOOD ORDERABLES Final Resul t Performing Organization Address City/[facility]/ZIP Co de Phone Number [facility] [address] [place] [phone] * POCT Urine (03/27/2024 1:51 PM EST) [...] EST Narrative 03/26/2024 4:57 PM EST ? [facility] ?[address] ?[place] [address] ?XRay Report ? Signed ? Patient: Gabbi Toureelly ?MR#: MM ?? [id number] ? : 2000 ?Acct:[id number] ? Age/Sex: 24 / F ?ADM Date: 03/26/24 ? Loc: HO.ED ? Attending Dr: ? Ordering Physician: Thai Sanches ?? Date of Service: 03/26/24 ?? Procedure(s): XR shoulder LT min 2V ?? Accession Number(s): [id number] ? cc: Caron Marrufo MD; Thai Sanches [...] ? DD/ 55 ? TD/TT: 03/26/241655 ? Paint Coating Machine Operator: ? Procedure Note Donotuseinterpreter, Image - 03/26/[address] [address] XRay Report Signed Patient: Kelvin ToureMR#: [id number] : 2000Acct:[id number] Age/Sex: 24 M Date: 03/26/24 Loc: HO.ED Attending Dr: Ordering Physician: Thai Sanches Date of Service: 03/26/24 Procedure(s): XR shoulder LT min 2V Accession Number(s): [id number] cc: Caron Marrufo MD; Thai Sanches CLINICAL [...] signed by Steven Smallwood MD in OV> 03/26/246 DD/ 55 TD/TT: 03/26/241655 Paint Coating Machine Operator: [facility] External Provider IMG XR PROCEDURES Edited Result - Final * (ABNORMAL) Bacterial Vaginosis Panel (03/25/2024 12:16 PM EST) TRICHOMONAS VAGINALIS DETECTION BY PCR NOT DETECTED Not Detect [facility] BACTERIAL VAGINOSIS DETECTION BY PCR POSITIVE(A) Negative [facility] Comment:The BV organism targ ets [...] DETECTION BY PCR NOT DETECTED Not Detect [facility] Michelle glab krusei PCR NOT DETECTED Not Detect [facility] Swab Vaginal structure / Unknown 03/25/2024 12:16 PM EST 03/25/2024 1:32 PM EST us Viraj Name MD LAB MICROBIOLOGY - GENERAL ORDER TRAVON Final Result [facility] [address] [place] [phone] * (ABNORMAL) Chlamydia/N. Gonorrhoeae RNA, TMA, Urogenitial (03/25/2024 12:16 PM EST) CT PCR DETECTED(A) Not Detect. [facility] Comment:Detected results may be observed [...] the ordering clinician orclinical facility to the [facility] required by state law. NG PCR NOT DETECTED Not Detect. 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
--- OUTSIDE RECORDS SUMMARY | 2024-04-21 12:44 | XMS_ITS | Clinical Summary ---
Author Organization [facility] Address [address] [place] [address] Care Team Providers Care Clay Artisan Name Role Phone Krystal Cleveland PA-C Primary Care Provider [phone] Source Comments PLEASE NOTE, if this patient [...] 2023 Annual Preventive Care Visit 02/26/2023 02/26/2022 [id number]-[id number] ( season) 10/24/202307/15/ 021, 06/16/2020 Imm-Influenza (#1) [...] TRACHOMATIS RNA, TMA NOT DETECTED NOT DETECTED [facility] [facility] NEISSERIA GONORRHOEAE RNA, TMA NOT DETECTED NOT DETECTED [facility] [facility] COMMENT [employer] [facility] SURESWAB(R) ADV BACTERIAL VAGINOSIS (BV), TMA NEGATIVE NEGATIVE [facility] [facility] MICHELLE SPECIES DETECTED(A) NOT DETECTED [facility] [facility] MICHELLE GLABRATA NOT DETECTED NOT DETECTED [facility] [facility] COMMENT [facility] [facility] TRICHOMONAS VAGINALIS (TV), TMA NOT DETECTED NOT DETECTED [facility] Vaginal Vaginal structure / Unknown 04/26/2023 4:22 PM EST 04/28/2023 12:58 AM EST Narrative [facility] - 04/28/2023 2:24 PM EST Michelle species C. albicans, C. tropicalis, C. parapsilosis, and/or C. dubliniensis can be detected, but not differentiated, in the Michelle spp. result. For additional information, please refer to https://education.Grabit/faq/HAG164 (This link is being provided for information/ educational purposes only.) [facility] - NO BLOOD DRAW Final Result [facility] [address] [address], [facility] [address] [phone] from Last 3 Months or Most Recently Relevant to Health Maintenance Insurance [facility] [address] ACO Care Teams Clay Artisan Relationship Specialty Start Date End Date Krystal Cleveland PA-C [address] [place] [id number] PCP - General FAMILY MEDICINEVINNY 10/23/21
--- OUTSIDE RECORDS SUMMARY | 2024-04-21 12:44 | XMS_ITS | Encounter Summary ---
Author Organization [employer] Address [address] [facility] [address] [place] [address] Care Team Providers Care Stunner Name Role Phone Caron Marrufo MD Primary Care Provider [phone] Encounter Details Date Type Department Care Team (Late st Contact Info) Description 03/26/2024 Orders Only [facility] External Provider, [facility] Social History Tobacco Use Types Packs/Day Years [...] Description 05/26/2024 10:00 AM EDT Procedure Visit [facility] [address] [place] [address] Caron Marrufo MD [address] [place] [phone] 06/19/2024 9:30 AM EDT Clinical Support [facility] [address] [place] [phone] documented as of this encounter Procedures Procedure [...] EST Narrative 03/26/2024 4:57 PM EST ? [facility] ?[address] ?[place] [address] ?XRay Report ? Signed ? Patient: Toure,Yaretsmelly ?MR#: MM ?? [id number] ? : 2000 ?Acct:[id number] ? Age/Sex: 24 / F ?ADM Date: 03/26/24 ? Loc: HO.ED ? Attending Dr: ? Ordering Physician: Thai Sanches ?? Date of Service: 03/26/24 ?? Procedure(s): XR shoulder LT min 2V ?? Accession Number(s): [id number] ? cc: Caron Marrufo MD; Thai Sanches [...] ? DD/ 55 ? TD/TT: 03/26/241655 ? Seed Corn Manager Production: ? Procedure Note Angie, Image - 03/26/[address] [address] XRay Report Signed Patient: Janay Toure#: [id number] : 2000Acct:[id number] Age/Sex: 24 / FADM Date: 03/26/24 Loc: HO.ED Attending Dr: Ordering Physician: Thai Sanches Date of Service: 03/26/24 Procedure(s): XR shoulder LT min 2V Accession Number(s): [id number] cc: Caron Marrufo MD; Thai Sanches CLINICAL [...] in OV> 03/26/241655 DD/ 55 TD/TT: 03/26/241655 Seed Corn Manager Production: [facility] External Provider IMG XR PROCEDURES Edited Result - Final * XR Shoulder 2+ Views Left (03/26/2024 2:52 PM EST) Anatomical Region Laterality Modality Upper Extremities, Shoulder Left Radi ographic Imaging 03/26/2024 2:52 PM EST Narrative 03/26/2024 2:53 PM EST ? [facility] ?[address] ?[place] [address] ?XRay Report ? Signed ? Patient: Toure,Yaretsmelly ?MR#: MM ?? [id number] ? : 2000 ?Acct:[id number] ? Age/Sex: 24 / F ?ADM Date: 03/26/24 ? Loc: HO.ED ? Attending Dr: ? Ordering Physician: Ry Wall ?? Date of Service: 03/26/24 ?? Procedure(s): XR shoulder LT min 2V ?? Accession Number(s): [id number] ? cc: Ry Wall; Caron Marrufo MD [...] MD in OV> ? 03/26/241452 ? DD/ 1452 ? TD/TT: 03/26/24 1452 ? Seed Corn Manager Production: ? Procedure Note Angie, Image - 03/26/2024 [facility] [address] [place] [address] XRay Report Signed Patient: Kelvin ToureMR#: [id number] : 2000Acct:[id number] Age/Sex: FADM Date: 03/26/24 Loc: HO.ED Attending Dr: Ordering Physician: Ry Wall Date of Service: 03/26/24 Procedure(s): XR shoulder LT min 2V Accession Number(s): [id number] cc: Ry Wall; Caron Marrufo MD CLINICAL [...] Smallwood MD in OV> 03/26/24 1453 DD/ 51 TD/TT: 03/26/241451 Seed Corn Manager Production: [facility] External Provider IMG XR PROCEDURES Edited Result - Final documented in this encounter Visit Diagnoses Not on filedocumented in this encounter Care Teams Stunner Relationship Specialty Start Date End Date Caron Marrufo MD [address] [place] [address] PCP - General Family Medicine 12/23/23 documented as of this encounter
--- OUTSIDE RECORDS SUMMARY | 2024-04-21 12:44 | XMS_ITS | Encounter Summary ---
Author Organization [employer] Address [address] [facility] [address] [address] [place] [address] Care Team Providers Care Payroll Accounting Manager Name Role Phone Caron Marrufo MD Primary Care Provider [phone] Encounter Details Date Type Department Care Team (Latest Contact Info) Description 04/21/2024 Travel Social History Tobacco Use Types Packs/Day [...] the past 12 months, has t he electric, gas, oil or water company threatened to shut off services in your [...] Description 05/26/2024 10:00 AM EDT Procedure Visit [facility] [address] [place] [phone] Caron Marrufo MD [address] [place] [address] 06/19/2024 9:30 AM EDT Clinical Support [address] [address] documented as of this encounter Visit Diagnoses Not on filedocumented in this encounter Additional Health Concerns Assessment Noted Time PHQ-9 Depression Total Score: 4 04/21/19 25 11:06 AM EST documented as of this encounter Care Teams Payroll Accounting Manager Relationship Specialty Start Date End Date Caron Marrufo MD [address] [place] [phone] PCP - General Family Medicine 12/23/23 documented as of this encounter
--- OUTSIDE RECORDS SUMMARY | 2024-04-21 12:45 | XMS_ITS | Encounter Summary ---
Author Organization [employer] Address [address] [facility] [address] [place] [address] Care Team Providers Care Rubber Turner Name Role Phone Caron Marrufo MD Primary Care Provider +1- [phone] Reason for Visit * Reason Comments Pre-visit Planning Pre-visit planning - LVM Encounter Details Date Type Department Care Team ([facility] st Contact Info) Description 04/07/2024 Patient Outreach [facility] [address] [place] [address] [phone] Caron Marrufo MD [address] [place], [place] [phone] Pre-visit Planning (Pre-visit planning - LVM ) Social History Tobacco Use Types Packs/Day Years [...] as of this encounter Progress Notes * Preeti Calderón - 04/07/2024 11:58 AM EST NATHAN Joy placed outbound call to patient to complete pre-visit planning. No answer at this time. Patient name and were not confirmed. CC left voicemail requesting return call. Direct contact information provided. documented in this encounter Plan of Treatment Upcoming Encounters Date Type Department Care Team (Late st Contact Info) Description 05/26/2024 10:00 AM EDT Procedure Visit [address] [address] Caron Marrufo MD [address] [place] [address] 06/19/2024 9:30 AM EDT Clinical Support [address] [address] documented as of this encounter Visit Diagnoses Not on filedocumented in this encounter Care Teams Rubber Turner Relationship Specialty Start Date End Date Caron Marrufo MD [address] [place] [address] PCP - General Family Medicine 12/23/23 documented as of this encounter
--- OUTSIDE RECORDS SUMMARY | 2024-04-21 12:45 | XMS_ITS | Encounter Summary ---
Author Organization [employer] Address [address] [facility] [address] [place] [address] Care Team Providers Care Aerobics Instructor Name Role Phone Caron Marrufo MD Primary Care Provider +1- [phone] Reason for Visit * Reason Onset Date Comments In person triage 04/03/2024 Encounter Details Date Type Department Care Team (Late st Contact Info) Description 04/03/2024 Telephone [facility] MED[facility]INE [address] [place] [address] [phone] Caron Marrufo MD [address] [place], [place] [phone] In person triage Social History Tobacco Use Types Packs/Day Years [...] Miscellaneous Notes * Telephone Encounter - Carey Bowser RN - 04/03/2024 11:26 AM EST Patient presents to walk in [place] requesting to be re swabbed for Chlamydia and BV as she recentlytested positive at visit 03/25/2024 started on medication 03/27/2024, pt denies any symptoms. Contact Fidelina Salcedo who states that pt should wait four weeks from completion of medication before testing again. Advised pt of this advise she is in agreement with plan of care. Advised pt if she develops symptoms to then come and be seen. documented in this encounter Plan of Treatment Upcoming Encounters Date Type Department Care Team (Late st Contact Info) Description 05/26/2024 10:00 AM EDT Procedure Visit [address] [address] Caron Marrufo MD [address] [place] [address] 06/19/2024 9:30 AM EDT Clinical Support [address] [address] documented as of this encounter Visit Diagnoses Not on filedocumented in this encounter Care Teams Aerobics Instructor Relationship Specialty Start Date End Date Caron Marrufo MD [address] [place] [address] PCP - General Family Medicine 12/23/23 documented as of this encounter
--- OUTSIDE RECORDS SUMMARY | 2024-04-21 12:45 | XMS_ITS | Encounter Summary ---
Author Organization [employer] Address [address] [facility] [address] [place] [address] Care Team Providers Care Mutuel Department Manager Name Role Phone Caron Marrfuo MD Primary Care Provider +1- [phone] Encounter Details Date Type Department Care Team (Late st Contact Info) Description 04/21/2024 10:00 AM EST Office Visit [facility] [address] [place], [place] [phone] Caron Marrufo MD [address] [place], [place] [phone] Iron deficiency anemia, unspecified iron deficiency anemia type (Primary Dx); Other fatigue; Routine screening for STI (sexually transmitted infection); Encounter for immunization; Other specified health status Social History Tobacco Use Types Packs/Day Years [...] Mass Index 19.53 04/21/2024 10:07 AM EST documented in this encounter Miscellaneous Notes * Assessment & Plan Note - Sharif Santiago - 04/21/2024 10:32 AM ESTAssociated Problem(s): Other fatigue Hx of iron deficiency. Reports increasingly feeling tired. No acute concerns or warning signs. -ordered routine labs 04/21/24 * Assessment & Plan Note - Shraif Santiago - 04/21/2024 10:27 AM ESTAssociated Problem(s): Iron deficiency anemia Hx of iron deficiency. -ordered iron labs 04/21/24 * Assessment & Plan Note - Sharif Santiago - 04/21/2024 10:23 AM ESTAssociated Problem(s): Other specified health status -next comprehensive annual evaluation due after 04/21/25 -eye care facilitated by [facility] -dental home [facility] -simon care proxy filed 03/27/24 documented in this encounter Plan of Treatment Upcoming Encounters Date Type Department Care Team (Late st Contact Info) Description 05/26/2024 10:00 AM EDT Procedure Visit [address] [address] Caron Marrufo MD [address] [place] [address] [phone] 06/19/2024 9:30 AM EDT Clinical Support [address] [address] Scheduled Orders Name Type Priority Associated Diagnoses Orde r Schedule Chlamydia/N. Gonorrhoeae RNA, TMA, Urine Microbiology Routine Routine screening for STI (sexually transmitted infection) Expected: 05/05/2024 (Approximate), Expires: 04/21/2025 CBC auto differential Lab Routine Iron deficiency anemia, unspecified iron deficiency anemia type Expected: 04/21/2024, Expires: 04/21/2025 Ferritin Lab Routine Iron deficiency anemia, unspecified iron deficiency anemia type Expected: 04/21/2024, Expires: 04/21/2025 Iron And Total Iron Binding Capacity Lab Routine Iron deficiency anemia, unspecified iron deficiency anemia type Expected: 04/21/2024, Expires: 04/21/2025 Vitamin B12 Lab Routine Iron deficiency anemia, unspecified iron deficiency anemia type Expected: 04/21/2024, Expires: 04/21/2025 TSH with Reflex to Free T4 Lab Routine Iron deficiency anemia, unspecified iron deficiency anemia type Expected: 04/21/2024, Expires: 04/21/2025 Hepatic Function Panel Lab Routine Other fatigue Expected: 04/21/2024 (Approximate), Expires: 04/21/2025 Lipid Panel, Standard Lab Routine Other fatigue Expected: 04/21/2024 (Approximate), Expires: 04/21/2025 Basic Metabolic Panel Lab Routine Other fatigue Expected: 04/21/2024 (Approximate), Expires: 04/21/2025 Vitamin D, 25-Hydroxy, Total, Immunoassay Lab Routine Other fatigue Expected: 04/21/2024 (Approximate), Expires: 04/21/2025 documented as of this encounter Visit Diagnoses Diagnosis Iron deficiency anemia, unspecified iron deficiency anemia type- Primary Other fatigue Routine screening for STI (sexually transmitted infection) Screening examination for venereal disease Encounter for immunization Other specified health status documented in this encounter Additional Health Concerns Assessment Noted Time PHQ-9 Depression Total Score: 4 04/21/19 25 11:06 AM EST documented as of this encounter Care Teams Mutuel Department Manager Relationship Specialty Start Date End Date Caron Marrufo MD [address] [place] [address] PCP - General Family Medicine 12/23/23 documented as of this encounter
--- OUTSIDE RECORDS SUMMARY | 2024-04-21 12:45 | XMS_ITS | Encounter Summary ---
Author Organization [employer] Address 75 [facility] [address], [place] [address] Care Team Providers Care Pmo Project Manager Name Role Phone Caron Marrufo MD Primary Care Provider +1- [phone] Reason for Visit * Reason Onset Date Comments chartprep 04/17/2024 Encounter Details Date Type Department Care Team (Late st Contact Info) Description 04/17/[address] [phone] Preeti Townsend [place] chartprep Social History Tobacco Use Types Packs/Day Years [...] encounter Miscellaneous Notes * Telephone Encounter - Preeti Townsend MA - 04/17/2024 9:17 AM EST ..Chart Prep Labs: done Images: done Vaccines due: Tdap Due and Flu Due Referrals: Not Applicable Screenings: PAP Overdue care gaps: Sbirt, SDOH, PHQ-9, and Oral Health documented in this encounter Plan of Treatment Upcoming Encounters Date Type Department Care Team (Late st Contact Info) Description 05/26/2024 10:00 AM EDT Procedure Visit [address] [address] Caron Marrufo MD [address] [place] [address] 06/19/2024 9:30 AM EDT Clinical Support [facility] [address] [place] [address] documented as of this encounter Visit Diagnoses Not on filedocumented in this encounter Care Teams Pmo Project Manager Relationship Specialty Start Date End Date Caron Marrufo MD [address] [place] [address] PCP - General Family Medicine 12/23/23 documented as of this encounter
[2024-04-21 13:37] LABS: MANUAL DIFF FLAG NO
[2024-04-21 13:54] LABS: Basophils Percent Auto 0.6 % (0-2); Eosinophils Absolute Auto 0.1 X10*3/uL (0.0-0.4); Eosinophils Percent Auto 1.8 % (0-4); Hematocrit 38.8 % (37.0-47.0); Imm Gran Abs Auto 0.02 X10*3/uL (0.00-0.03); Imm Gran Pct Auto 0.3 % (0.0-0.4); Lymphocytes Absolute Auto 3.2 X10*3/uL (1.2-4.9); Lymphocytes Percent Auto 47.6 % (20-40); Mean Corpuscular HGB Conc 33.5 g/dl (31.0-35.0); Mean Corpuscular Hemoglobin 31.4 pg (27.0-33.0); Mean Corpuscular Volume 93.7 fL (80.0-98.0); Mean Platelet Volume 11.5 fL (9.4-12.3); Monocytes Absolute Auto 0.4 X10*3/uL (0.1-1.2); Monocytes Percent Auto 5.4 % (2-11); Neutrophils Percent Auto 44.3 % (45-73); Platelet Count 205 X10*3/uL (160-400); Red Blood Count 4.14 X10*6/uL (4.20-5.50); White Blood Count 6.7 X10*3/uL (4.8-10.8)
[2024-04-21 14:25] LABS: Vitamin B12 375 pg/mL (200-900)
[2024-04-21 14:26] LABS: Alanine Aminotransferase 16 U/L (0-31); Albumin Level 3.9 g/dL (3.5-5.0); Alkaline Phosphatase 67 U/L (39-117); Anion Gap 10 (12-20); Aspartate Amino Transferase 26 U/L (5-31); Bilirubin Direct 0.2 mg/dL (0.0-0.5); Bilirubin Total 0.5 mg/dL (0.0-1.0); Blood Urea Nitrogen 10 mg/dL (9-16); Calcium 8.9 mg/dL (8.4-10.2); Carbon Dioxide 24 mmol/L (22-29); Chloride 109 mmol/L (96-108); Cholesterol 116 mg/dL (<200); Estimated Glomerular Filt Rate > 60; Glucose Random 82 mg/dL (60-115); HDL Cholesterol 57 mg/dL (>40); Iron 70 mcg/dL (30-160); LDL Cholesterol Calculated 49 mg/dL (<100); Percent Iron Saturation 25 % (15-50); Potassium 3.7 mmol/L (3.3-5.1); Sodium 139 mmol/L (135-145); Total Iron Binding Capacity 280 mcg/dL (228-428); Triglycerides 51 mg/dL (<150); Unsaturated Iron Binding 210 ug/dL
[2024-04-21 14:41] LABS: Ferritin 34 ng/mL (10-122); TSH reflex Free T4 0.36 uIU/mL (0.32-4.0)
[2024-04-21 14:56] LABS: Vitamin D 25-OH Total 58.2 ng/mL (>30)
== END 2024-04-21 11:02 | disposition home or self-care (01) ==
LOC: HO.HHCL 11:01
PROVIDERS: Visit Provider Family Medicine
DX: R53.83 Other fatigue (principal); D50.9 Iron deficiency anemia, unspecified
CPT/HCPCS: 36415; 80048; 80061; 80076; 82306; 82607; 82728; 83540; 84443; 85025

== ENCOUNTER 2024-04-28 11:45 | Outpatient (REF) | payer MEDICAID, SELFPAY ==
--- OUTSIDE RECORDS SUMMARY | 2024-04-28 13:40 | XMS_ITS | Encounter Summary ---
Author Organization [employer] Address 75 [facility] 7[place] [address] Care Team Providers Care Tank Truck Operator Name Role Phone Caron Marrufo MD Primary Care Provider +1- [phone] Reason for Visit * Reason Onset Date Comments chartprep 04/17/2024 Encounter Details Date Type Department Care Team (Late st Contact Info) Description 04/17/[address] [phone] Preeti Townsend [place] chartprep Social History Tobacco [...] Description 05/26/2024 10:00 AM EDT Procedure Visit [address] [address] Caron Marrufo MD [address] [place] [address] 06/19/2024 9:30 AM EDT Clinical Support [facility] 230 [place] [address] documented as of this encounter Visit Diagnoses Not on filedocumented in this encounter Care Teams Tank Truck Operator Relationship Specialty Start Date End Date Caron Marrufo MD [address] [place] [address] PCP - General Family Medicine 12/23/23 documented as of this encounter
--- OUTSIDE RECORDS SUMMARY | 2024-04-28 13:40 | XMS_ITS | Encounter Summary ---
Author Organization [employer] Address [address] [facility] [address] [place] [address] Care Team Providers Care Photovoltaic Installation Technician Name Role Phone Caron Marrufo MD Primary Care Provider +1- [phone] Reason for Visit * Reason Onset Date Comments In person triage 04/03/2024 Encounter Details Date Type Department Care Team (Late st Contact Info) Description 04/03/2024 Telephone [facility] MEDICINE [address] [place] [address] [phone] Caron Marrufo MD [address] [place], [place] [phone] In person triage Social History Tobacco Use [...] AM EST Patient presents to walk in [place] requesting to be re swabbed for Chlamydia [...] Description 05/26/2024 10:00 AM EDT Procedure Visit [address] [address] Caron Marrufo MD [address] [place] [address] 06/19/2024 9:30 AM EDT Clinical Support [address] [address] documented as of this encounter Visit Diagnoses Not on filedocumented in this encounter Care Teams Photovoltaic Installation Technician Relationship Specialty Start Date End Date Caron Marrufo MD [address] [place] [address] PCP - General Family Medicine 12/23/23 documented as of this encounter
--- OUTSIDE RECORDS SUMMARY | 2024-04-28 13:40 | XMS_ITS | Encounter Summary ---
Author Organization [employer] Address [address] [facility] [address] [place] [address] Care Team Providers Care Basting Machine Operator Name Role Phone Caron Marrufo MD Primary Care Provider +1- [phone] Encounter Details Date Type Department Care Team [...] Description 05/26/2024 10:00 AM EDT Procedure Visit [facility] [address] [place] [address] Caron Marrufo MD [address] [place] [address] 06/19/2024 9:30 AM EDT Clinical Support [address] [address] documented as of this encounter Visit Diagnoses Not on filedocumented in this encounter Additional Health Concerns Assessment Noted Time PHQ-9 Depression Total Score: 4 04/21/19 25 11:06 AM EST documented as of this encounter Care Teams Basting Machine Operator Relationship Specialty Start Date End Date Caron Marrufo MD [address] [place] [address] PCP - General Family Medicine 12/23/23 documented as of this encounter
--- OUTSIDE RECORDS SUMMARY | 2024-04-28 13:40 | XMS_ITS | Encounter Summary ---
Author Organization [employer] Address [address] [facility] [address] [place] [address] Care Team Providers Care Plate Worker Name Role Phone Caron Marrufo MD Primary Care Provider +1- [phone] Reason for Visit * Reason Comments Pre-visit Planning Pre-visit planning - LVM Encounter Details Date Type Department Care Team ([facility] st Contact Info) Description 04/07/2024 Patient Outreach [facility] MEDICINE [address] [place] [address] [phone] Caron Marrufo MD [address] [place], [place] [phone] Pre-visit Planning (Pre-visit planning - LVM ) [...] Description 05/26/2024 10:00 AM EDT Procedure Visit [address] [address] Caron Marrufo MD [address] [place] [address] 06/19/2024 9:30 AM EDT Clinical Support [address] [address] documented as of this encounter Visit Diagnoses Not on filedocumented in this encounter Care Teams Plate Worker Relationship Specialty Start Date End Date Caron Marrufo MD [address] [place] [address] PCP - General Family Medicine 12/23/23 documented as of this encounter
--- OUTSIDE RECORDS SUMMARY | 2024-04-28 13:40 | XMS_ITS | Encounter Summary ---
Author Organization [employer] Address [address] [facility] [address] [place] [address] Care Team Providers Care Supervisor Pastry Name Role Phone Caron Marrufo MD Primary Care Provider +1- [phone] Reason for Visit * Reason Onset Date Comments Lab Orders 04/27/2024 Encounter Details Date Type Department Care Team (Late st Contact Info) Description 04/27/2024 Telephone [facility] [address] [place], [place] [phone] Caron Marrufo MD [address] [place], [place] [phone] Lab Orders Social History Tobacco Use Types Packs/Day Years [...] as of this encounter Miscellaneous Notes * Addendum Note - Yamilet Mendoza RN - 04/27/2024 10:52 AM ESTAddended by: YAMILET MENDOZA on: 04/27/2024 10:52 AM Modules accepted: Orders * Telephone Encounter - Yamilet Mendoza RN - 04/27/2024 10:52 AM EST Order placed as requested. Pt to go to the lab * Telephone Encounter - Lilliana Chavez - 04/27/2024 10:48 AM EST Patient walked in requesting TB lab for new Job. documented in this encounter Plan of Treatment Upcoming Encounters Date Type Department Care Team (Late st Contact Info) Description 05/26/2024 10:00 AM EDT Procedure Visit [facility] [address] [place] [address] Caron Marrufo MD [address] [place] [address] 06/19/2024 9:30 AM EDT Clinical Support [facility] [address] [place] [address] Scheduled Orders Name Type Priority Associated Diagnoses Orde r Schedule T-SPOT??.TB Lab Routine Screening for tuberculosis Expected: 04/27/2024 (Approximate), Expires: 04/27/2025 documented as of this encounter Visit Diagnoses Diagnosis Screening for tuberculosis Screening examination for pulmonary tuberculosis documented in this encounter Additional Health Concerns Assessment Noted Time PHQ-9 Depression Total Score: 4 04/21/19 25 11:06 AM EST documented as of this encounter Care Teams Supervisor Pastry Relationship Specialty Start Date End Date Caron Marrufo MD [address] [place] [address] PCP - General Family Medicine 12/23/23 documented as of this encounter
--- OUTSIDE RECORDS SUMMARY | 2024-04-28 13:40 | XMS_ITS | Encounter Summary ---
Author Organization [employer] Address [address] [facility] [address] [place] [address] Care Team Providers Care Net Software Engineer Name Role Phone Caron Marrufo MD Primary Care Provider [phone]- [phone] Encounter Details Date Type Department Care Team (Late st Contact Info) Description 04/21/2024 10:00 AM EST Office Visit [facility] [address] [place], [place] [phone] Caron Marrufo MD [address] [place], [place] [phone] Iron deficiency anemia, unspecified iron deficiency anemia [...] 10:07 AM EST documented in this encounter Progress Notes * Caron Marrufo MD - 04/21/2024 10:00 AM EST Amie Warren is a 24 y.o. female who presents to the office today for new patient intake and comprehensive annual evaluation. Seen on 03/27/24 for family planning. Has Nexplanon, but is switching to depo. Waiting to remove nexplanon due to recent dislocation of shoulder. LMP around 03/13/24, Last sexual intercourse early Feb. Depo started 03/27/24 Pt reports she is doing well with her depo shot and will await a message for her follow-up shot. She reports she has hx of low iron and has been feeling increasingly tired throughout the day. No fevers, unintentional weight loss, or lymphadenopathy. Pt reports she has been on iron supplements before. Social History Lives with partner and child. Fees safe at home. Tobacco: denied Drugs: none Alcohol: No Sexuality: 1 partner, sexually active, being safe and feels safe. Suicide/Depression: The patient denies any present symptoms of depression or anxiety. Review of Systems Constitutional: Negative for fatigue, fever and unexpected weight change. Respiratory: Negative for cough. Cardiovascular: Negative for chest pain. Gastrointestinal: Negative for abdominal pain. Genitourinary: Negative for difficulty urinating. Current Outpatient Medications: medroxyPROGESTERone (Depo-Provera) 150 MG/ML injection, Inject 1 mL (150 mg) into the muscle every 3 (three) months., Disp: 1 mL, Rfl: 3 No Known Allergies No past medical history on file. No past surgical history on file. Family History Problem Relation Name Age of Onset Diabetes Father's Sister Arthritis Maternal Grandmother Objective Visit Vitals BP 98/59 (BP Location: Right arm, Patient Position: Sitting, BP Cuff Size: Adult) Pulse 87 Temp 97.1 ??F (36.2 ??C) (Temporal) Resp 20 Ht 5' 6 (1.676 m) Wt 121 lb (54.9 kg) SpO2 96% BMI 19.53 kg/m?? Smoking Status Never BSA 1.6 m?? Physical Exam Constitutional: Appearance: Normal appearance. HENT: Head: Normocephalic. Right Ear: Tympanic membrane normal. Left Ear: Tympanic membrane normal. Mouth/Throat: Pharynx: Oropharynx is clear. Eyes: Pupils: Pupils are equal, round, and reactive to light. Cardiovascular: Rate and Rhythm: Normal rate and regular rhythm. Heart sounds: Normal heart sounds. Pulmonary: Effort: Pulmonary effort is normal. Breath sounds: Normal breath sounds. Abdominal: General: Abdomen is flat. Palpations: There is no mass. Tenderness: There is no abdominal tenderness. Musculoskeletal: General: Normal range of motion. Cervical back: Normal range of motion and neck supple. Lymphadenopathy: Cervical: No cervical adenopathy. Skin: General: Skin is warm and dry. Neurological: General: No focal deficit present. Mental Status: She is alert. Psychiatric: Behavior: Behavior normal. 24 y.o. female annual evaluation. Problem List Items Addressed This Visit Iron deficiency anemia - Primary Hx of iron deficiency. -ordered iron labs 04/21/24 Relevant Orders CBC auto differential Ferritin Iron And Total Iron Binding Capacity Vitamin B12 TSH with Reflex to Free T4 Other fatigue Hx of iron deficiency. Reports increasingly feeling tired. No acute concerns or warning signs. -ordered routine labs 04/21/24 Relevant Orders Hepatic Function Panel Lipid Panel, Standard Basic Metabolic Panel Vitamin D, 25-Hydroxy, Total, Immunoassay Other specified health status -next comprehensive annual evaluation due after 04/21/25 -eye care facilitated by [facility] -dental home encouraged -simon care proxy filed 03/27/24 Other Visit Diagnoses Routine screening for STI (sexually transmitted infection) Relevant Orders Chlamydia/N. Gonorrhoeae RNA, TMA, Urine Encounter for immunization Relevant Orders TDAP VACCINE 7 yrs + Annual Evaluation -Normal growth and development. -Anticipatory guidance discussed. -Preventative care / harm reduction discussed. No follow-ups on file. I, Sharif Santiago, am serving as a scribe to document services personally performed by Dr. Coughlin, based on the patient's response to questions by provider and providers statements to me. documented in this encounter Miscellaneous Notes * Assessment & Plan Note - Sharif Santiago - 04/21/2024 10:32 AM ESTAssociated Problem(s): Other fatigue Hx of iron deficiency. Reports increasingly feeling tired. No acute concerns or warning signs. -ordered routine labs 04/21/24 * Assessment & Plan Note - Sharif Santiago - 04/21/2024 10:27 AM ESTAssociated Problem(s): Iron deficiency anemia Hx of iron deficiency. -ordered iron labs 04/21/24 * Assessment & Plan Note - Sharif Santiago - 04/21/2024 10:23 AM ESTAssociated Problem(s): Other specified health status -next comprehensive annual evaluation due after 04/21/25 -eye care facilitated by [facility] -dental home [facility] -simon care proxy filed 03/27/24 documented in this encounter Plan of Treatment Upcoming Encounters Date Type Department Care Team (Late st Contact Info) Description 05/26/2024 10:00 AM EDT Procedure Visit [facility] MEDICINE [address] [place] [phone] Caron Marrufo MD [address] [place], [place] [phone] 06/19/2024 9:30 AM EDT Clinical Support [address] [phone] Scheduled Orders Name Type Priority Associated Diagnoses Orde r Schedule Chlamydia/N. Gonorrhoeae RNA, TMA, Urine Microbiology Routine Routine screening for STI (sexually transmitted infection) Expected: 05/05/2024 (Approximate), Expires: 04/21/2025 documented as of this encounter Procedures Procedure Name Priority Date/Time Associated Diagnosis Comments VITAMIN D,25-OH,TOTAL,IA Routine 04/21/2024 11:02 AM EST Other fatigue TSH W/REFLEX TO FT4 Routine 04/21/2024 1 1:02 AM EST Iron deficiency anemia, unspecified iron deficiency anemia type CBC WITH AUTO DIFFERENTIAL Routine 04/21/2024 11:02 AM EST Iron deficiency anemia, unspecified iron deficiency anemia type IRON AND TOTAL IRON BINDING CAPACITY Routine 04/21/2024 11:02 AM EST Iron deficiency anemia, unspecified iron deficiency anemia type FERRITIN Routine 04/21/2024 11:02 AM EST Iron deficiency anemia, unspecified iron deficiency anemia type VITAMIN B12 Routine 04/21/2024 11:02 AM EST Iron deficiency anemia, unspecified iron deficiency anemia type HEPATIC FUNCTION PANEL Routine 04/21/2024 11:02 AM EST Other fatigue LIPID PANEL, STANDARD Routine 04/21/2024 11:02 AM EST Other fatigue BASIC METABOLIC PANEL Routine 04/21/2024 11:02 AM EST Other fatigue documented in this encounter Results * Vitamin D, 25-Hydroxy, Total, Immunoassay (04/21/2024 11:02 AM EST) Vitamin D 25-OH Total 58.2 >30 ng/mL [facility] Comment:Health Based Referen ce Values*< 20 ng/mL Cbtbblvbe31-23 ng/mL Insufficient> 30 ng/mL Sufficient*Chelsey BERGERON. N Engl J Med. 2007;357:266-280Care must be taken in interpreting Vitamin D results fromdifferent laboratories and methodologies. Published datademonstrated that results from patients undergoinghemodialysis may show a negative bias when tested withvarious automated 25-OH vitamin D assays when compared toLC-MS/MS.When testing samples from patients whose predominant form ofVitamin D is Vitamin D2, such as patients receiving VitaminD2 supplementation, results that are subtherapeutic shouldbe confirmed with another method such as LC-MS/MS. Blood Venous blood specimen / Unknown 04/21/2024 11:02 AM EST 04/21/2024 1:30 PM EST Caron Marrufo MD LAB BLOOD ORDERABLES Final Result [facility] [address] [place] [phone] * (ABNORMAL) Basic Metabolic Panel (04/21/2024 11:02 AM EST) Pathologist [facility] Sodium 139 135 - 145 mmol/L [facility] Potassium 3.7 3.3 - 5.1 mmol/L [facility] Chloride 109(H) 96 - 108 mmol/L [facility] Carbon Dioxide 24 22 - 29 mmol/L [facility] Anion Gap 10(L) 12 - 20 [facility] Urea Nitrogen (BUN) 10 9 - 16 mg/dL [facility] Creatinine, Serum 0.66 0.5 - 1.4 mg/dL [facility] Estimated Glomerular Filt Rate >60 [facility] Comment:Chronic Kidney Disea se: Estimated GFR < 60 mL/min/[id number] Kidney Disease: Estimated GFR < 15 mL/min/1.73m2 Glucose 82 60 - 115 mg/dL [facility] Calcium 8.9 8.4 - 10.2 mg/dL [facility] Blood Venous blood specimen / Unknown 04/21/2024 11:02 AM EST 04/21/2024 1:30 PM EST us Caron Marrufo MD LAB BLOOD ORDERABLES Final Result [facility] [address] [place] [phone] * Lipid Panel, Standard (04/21/2024 11:02 AM EST) Triglycerides 51 <150 mg/dL [facility] Comment:Slight Lipemia.Santa able Triglyceride: less than 150 mg/dLBorderline High Triglyceride 150-199 mg/dLHigh Triglyceride: 200-499 mg/dLVery High Triglyceride: greater than or equal to 5OO mg/dL Cholesterol 116 <200 mg/dL [facility] Comment:Desirable Cholestero l: less than 200 mg/dLBorderline High Cholesterol: 200-239 mg/dLHigh Cholesterol: greater than 239 mg/dL LDL Cholesterol Calculated 49 <100 mg/dL [facility] Comment:Desirable LDL: less than 100 mg/dLNear Optimal/Above Optimal LDL: 110- 129 mg/dLBorderline High LDL: 130-159 mg/dLHigh LDL: 160-189 mg/dLVery High LDL: greater than or equal to 190 mg/dL HDL Cholesterol 57 >40 mg/dL [facility] Comment:Desirable HDL: great er than 40 mg/dL Note: This HDL assay may give artificially low results in patients with liver disease. Blood Venous blood specimen / Unknown 04/21/2024 11:02 AM EST 04/21/2024 1:30 PM EST Caron Marrufo MD LAB BLOOD ORDERABLES Final Result Performing Organization Address City/[facility]/ZIP Co de Phone Number [facility] [address] [place] [phone] * Hepatic Function Panel (04/21/2024 11:02 AM EST) Bilirubin, Total 0.5 0.0 - 1.0 mg/dL [facility] Bilirubin, Direct 0.2 0.0 - 0.5 mg/dL [facility] Aspartate Amino Transferase 26 5 - 31 U/L [facility] Alanine Aminotransferase 16 0 - 31 U/L [facility] Total Protein 7.0 6.5 - 8.0 g/dL [facility] Albumin Level 3.9 3.5 - 5.0 g/dL [facility] Alkaline Phosphatase 67 39 - 117 U/L [facility] Blood Venous blood specimen / Unknown 04/21/2024 11:02 AM EST 04/21/2024 1:30 PM EST Caron Marrufo MD LAB BLOOD ORDERABLES Final Result Performing Organization Address [facility]/ZIP Co de Phone Number [facility] [address] [place] [phone] * TSH with Reflex to Free T4 (04/21/2024 11:02 AM EST) TSH reflex Free T4 0.36 0.32 - 4.0 uIU/mL [facility] Blood 04/21/2024 11:0 2 AM EST 04/21/2024 1:30 PM EST Caron Marrufo MD LAB BLOOD ORDERABLES Final Result [facility] [address] [place] [phone] * Vitamin B12 (04/21/2024 11:02 AM EST) Vitamin B12 375 200 - 900 pg/mL [facility] Comment:NORMAL 200-900 PG/ML INDETERMINATE 160-199 PG/ML DEFICIENT < 160 PG/ML Blood Venous blood specimen / Unknown 04/21/2024 11:02 AM EST 04/21/2024 1:30 PM EST Caron Marrufo MD LAB BLOOD ORDERABLES Final Result Performing Organization Address [facility]/ZIP Co de Phone Number [facility] [address] [place] [phone] * Iron And Total Iron Binding Capacity (04/21/2024 11:02 AM EST) Iron 70 30 - 160 mcg/dL [facility] Total Iron Binding Capacity 280 228 - 428 mcg/dL [facility] Percent Iron Saturation 25 15 - 50 % [facility] Unsaturated Iron Binding 210 ug/dL [facility] Blood Venous blood specimen / Unknown 04/21/2024 11:02 AM EST 04/21/2024 1:30 PM EST Caron Marrufo MD LAB BLOOD ORDERABLES Final Result Performing Organization Address City/[facility]/ZIP Co de Phone Number [facility] [address] [place] [phone] * Ferritin (04/21/2024 11:02 AM EST) Ferritin 34 10 - 122 ng/mL [facility] Blood Venous blood specimen / Unknown 04/21/2024 11:02 AM EST 04/21/2024 1:30 PM EST Caron Marrufo MD LAB BLOOD ORDERABLES Final Result Performing Organization Address City/[facility]/ZIP Co de Phone Number [facility] [address] [place] [phone] * (ABNORMAL) CBC auto differential (04/21/2024 11:02 AM EST) White Blood Count 6.7 4.8 - 10.8 X10*3/uL [facility] Red Blood Count 4.14(L) 4.20 - 5.50 X10*6/uL [facility] Hemoglobin 13.0 12.0 - 16.0 g/dl [facility] Hematocrit 38.8 37.0 - 47.0 % [facility] Mean Corpuscular Volume 93.7 80.0 - 98.0 fL [facility] Mean Corpuscular Hemoglobin 31.4 27.0 - 33.0 pg [facility] Mean Corpuscular HGB Conc 33.5 31.0 - 35.0 g/dl [facility] Red Cell Distribution Width 13.0 11.0 - 16.0 % [facility] Platelet Count 205 160 - 400 X10*3/uL [facility] Mean Platelet Volume 11.5 9.4 - 12.3 fL [facility] Neutrophils Percent Auto 44.3(L) 45 - 73 % [facility] Imm Gran Pct Auto 0.3 0.0 - 0.4 % [facility] Lymphocytes Percent Auto 47.6(H) 20 - 40 % [facility] Monocytes Percent Auto 5.4 2 - 11 % [facility] Eosinophils Percent Auto 1.8 0 - 4 % [facility] Basophils Percent Auto 0.6 0 - 2 % [facility] NRBC Pct Auto 0.0 0.0 - 0.2 /100WBC [facility] Neutrophils Absolute Auto 3.0 2.0 - 8.3 x10*3/uL [facility] Imm Gran Abs Auto 0.02 0.00 - 0.03 X10*3/uL [facility] Lymphocytes Absolute Auto 3.2 1.2 - 4.9 X10*3/uL [facility] Monocytes Absolute Auto 0.4 0.1 - 1.2 X10*3/uL [facility] Eosinophils Absolute Auto 0.1 0.0 - 0.4 X10*3/uL [facility] Basophils Absolute Auto 0.0 0.0 - 0.2 X10*3/uL [facility] NRBC Abs Auto 0.000 0.0 - 0.012 X10*3/uL [facility] Blood Venous blood specimen / Unknown 04/21/2024 11:02 AM EST 04/21/2024 1:30 PM EST us Caron Marrufo MD LAB BLOOD ORDERABLES Final Result Performing Organization Address City/State/[facility] Co de Phone Number [facility] [address] [place] [phone] documented in this encounter Visit Diagnoses Diagnosis Iron deficiency anemia, unspecified iron deficiency anemia type- Primary Other fatigue Routine screening for STI (sexually transmitted infection) Screening examination for venereal disease Encounter for immunization Other specified health status documented in this encounter Additional Health Concerns Assessment Noted Time PHQ-9 Depression Total Score: 4 04/21/19 25 11:06 AM EST documented as of this encounter Care Teams Net Software Engineer Relationship Specialty Start Date End Date Caron Marrufo MD [address] [place] [phone] PCP - General Family Medicine 12/23/23 documented as of this encounter
--- OUTSIDE RECORDS SUMMARY | 2024-04-28 13:40 | XMS_ITS | Encounter Summary ---
Author Organization [employer] Address [address] [facility] [address] [place] [address] Care Team Providers Care Virtualization Consultant Name Role Phone Caron Marrufo MD Primary Care Provider [phone]- [phone] Reason for Visit * Reason Onset Date Comments Results 04/24/2024 Encounter Details Date Type Department Care Team (Late st Contact Info) Description 04/24/2024 Telephone [facility] [address] [place], [place] [phone] Caron Marrufo MD [address] [place], [place] [phone] Results Social History Tobacco Use Types Packs/Day [...] encounter Miscellaneous Notes * Telephone Encounter - Caron Pierce RN - 04/24/2024 8:59 AM EST Telephone call to pt to advise that lab results look normal, including normal iron and vitamin D level. Pt verbalized understanding, no further questions. * Telephone Encounter - Caron Pierce RN - 04/24/2024 8:56 AM EST ----- Message from Caron Marrufo MD sent at 04/23/2024 6:43 PM EST ----- Please let Kelvin know her labs are great including iron level and vit D. Thank you. documented in this encounter Plan of Treatment Upcoming Encounters Date Type Department Care Team (Late st Contact Info) Description 05/26/2024 10:00 AM EDT Procedure Visit [facility] [address] [place] [phone] Caron Marrufo MD [address] [place] [phone] 06/19/2024 9:30 AM EDT Clinical Support [facility] [address] [place] [phone] documented as of this encounter Visit Diagnoses Not on filedocumented in this encounter Additional Health Concerns Assessment Noted Time PHQ-9 Depression Total Score: 4 04/21/19 25 11:06 AM EST documented as of this encounter Care Teams Virtualization Consultant Relationship Specialty Start Date End Date Caron Marrufo MD [address] [place] [address] PCP - General Family Medicine 12/23/23 documented as of this encounter
--- OUTSIDE RECORDS SUMMARY | 2024-04-28 13:40 | XMS_ITS | Clinical Summary ---
Author Organization [employer] Address [address] [facility] 7t [place] [address] Care Team Providers Care Correctional Probation Officer Name Role Phone Caron Marrufo MD Primary Care Provider +1- [phone] Allergies No known active allergies Medications medroxyPROGESTE Juan Ramon (Depo-Provera) 150 MG/ML injectionIndica tions:Family planning Inject 1 mL (150 mg) into the muscle every 3 (three) months. 1 mL 3 03/27/2024 Active doxycycline (Vibra-Tabs) 100 MG tablet Take 1 tablet (100 mg) by mouth 2 times daily for 7 days. Take with a full glass of water and do not lie down for at least 30 minutes after. 14 tablet 03/26/2024 04/02/19 25 Active Problems Problem Noted Date Diagnosed Date [...] due after 04/21/25 -eye care facilitated by [facility] [place] -dental home encouraged -simon care proxy filed 03/27/24 Assessment & Plan (04/21/2024 10:23 AM EST): -next comprehensive annual evaluation due after 04/21/25 -eye care facilitated by [facility] -dental herndon encouraged -simon care proxy filed 03/27/24 Family planning 03/27/2024 Assessment & Plan (03/27/2024 2:15 PM EST): -depo started 03/27/24 risks and benefits discussed Anterior shoulder dislocation 03/26/2024 Overview (03/26/2024): -xray 03/26/24 IMPRESSION: Anterior inferior dislocation of the left glenohumeral joint. Adolescent idiopathic scoliosis of thoracolumbar region 03/06/2016 Overview (03/27/2024): 10/15/15 - [facility] - High curvature apex/Risser 4, no bracing. Left thoracic curve 29 degrees/right thoracic curve 17 degrees/lumber curve 8 degrees. Some back pain, will follow with Thiago's. Encounters Date Type Department Care Team Description 04/27/2024 Telephone [facility] [address] [place] [phone] Caron Marrufo MD Lab Orders 04/24/2024 Telephone [facility] [address] [place] [address] Caron Marrufo MD Results 04/21/2024 10:00 AM EST Office Visit [address] [address] Caron Marrufo MD Iron deficiency anemia, unspecified iron deficiency anemia type (Primary Dx); Other fatigue; Routine screening for STI (sexually transmitted infection); Encounter for immunization; Other specified health status 04/21/2024 Travel 04/17/[address] [address] Preeti Townsend MA chartprep 04/07/2024 Patient Outreach [address] [address] Caron Marrufo MD Pre-visit Planning (Pre-visit planning - LVM ) 04/03/[address] [address] Caron Marrufo MD In person triage 03/28/[address] [address] Caron Marrufo MD Results 03/27/2024 1:05 PM EST Procedure Visit [address] [address] Caron Marrufo MD Family planning (Primary Dx); Dietary counseling; Exercise counseling; Other specified health status; Encounter for contraceptive management, unspecified type 03/27/2024 Travel 03/27/[address] [address] Caron Marrufo MD Appointment Request 03/26/2024 Orders Only [facility] External Provider, [facility] 03/26/[address] [address] Viraj Rendon MD 03/25/2024 11:40 AM EST Office Visit [facility] [address] [address] Viraj Rendon MD Suprapubic pain (Primary Dx) 03/25/2024 Travel 03/23/2024 2:00 PM EST Clinical Support [address] [address] Bre Polanco RN Encounter for contraceptive management, [...] Description 05/26/2024 10:00 AM EDT Procedure Visit [facility] [address] [place] [phone] Caron Marrufo MD [address] [place] [address] 06/19/2024 9:30 AM EDT Clinical Support [facility] [address] [place] [phone] Health Maintenance Due Date Last Done Comments [...] Routine 04/21/2024 11:02 AM EST Other fatigue HEPATIC FUNCTION PANEL Routine 04/21/2024 11:02 AM [...] deficiency anemia, unspecified iron deficiency anemia type RPR (MONITOR) W/REFL TITER Routine 03/27/2024 2:04 [...] type from Last 3 Months Results * Vitamin D, 25-Hydroxy, Total, Immunoassay (04/21/2024 11:02 AM EST) Vitamin D 25-OH Total 58.2 >30 ng/mL [facility] Comment:Health Based Referen ce Values*< 20 ng/mL Twuvckwdi42-00 ng/mL Insufficient> 30 ng/mL Sufficient*Chelsey BERGERON. N [...] Marrufo MD LAB BLOOD ORDERABLES Final Result [facility] [address] [place] [phone] * TSH with Reflex to Free T4 (04/21/2024 11:02 AM EST) TSH reflex Free T4 0.36 0.32 - 4.0 uIU/mL [facility] Blood 04/21/2024 11:0 2 AM EST 04/21/2024 1:30 PM EST Caron Marrufo MD LAB BLOOD ORDERABLES Final Result Performing Organization Address City/State/[facility] Co de Phone Number [facility] [address] [place] [phone] * (ABNORMAL) CBC auto differential (04/21/2024 11:02 AM EST) White Blood Count 6.7 4.8 - 10.8 X10*3/uL [facility] Red Blood Count 4.14(L) 4.20 - 5.50 X10*6/uL [facility] Hemoglobin 13.0 12.0 - 16.0 g/dl [facility] Hematocrit 38.8 37.0 - 47.0 % [facility] Mean Corpuscular Volume 93.7 80.0 - 98.0 fL [facility] Mean Corpuscular Hemoglobin 31.4 27.0 - 33.0 pg [facility] Mean Corpuscular HGB Conc 33.5 31.0 - 35.0 g/dl [facility] Red Cell Distribution Width 13.0 11.0 - 16.0 % [facility] Platelet Count 205 160 - 400 X10*3/uL [facility] Mean Platelet Volume 11.5 9.4 - 12.3 fL [facility] Neutrophils Percent Auto 44.3(L) 45 - 73 % [facility] Imm Gran Pct Auto 0.3 0.0 - 0.4 % [facility] Lymphocytes Percent Auto 47.6(H) 20 - 40 % [facility] Monocytes Percent Auto 5.4 2 - 11 % [facility] Eosinophils Percent Auto 1.8 0 - 4 % [facility] Basophils Percent Auto 0.6 0 - 2 % [facility] NRBC Pct Auto 0.0 0.0 - 0.2 /100WBC [facility] Neutrophils Absolute Auto 3.0 2.0 - 8.3 x10*3/uL [facility] Imm Gran Abs Auto 0.02 0.00 - 0.03 X10*3/uL [facility] Lymphocytes Absolute Auto 3.2 1.2 - 4.9 X10*3/uL [facility] Monocytes Absolute Auto 0.4 0.1 - 1.2 X10*3/uL [facility] Eosinophils Absolute Auto 0.1 0.0 - 0.4 X10*3/uL [facility] Basophils Absolute Auto 0.0 0.0 - 0.2 X10*3/uL [facility] NRBC Abs Auto 0.000 0.0 - 0.012 X10*3/uL [facility] Blood Venous blood specimen / Unknown 04/21/2024 11:02 AM EST 04/21/2024 1:30 PM EST Caron Marrufo MD LAB BLOOD ORDERABLES Final Result Performing Organization Address City/[facility]/ZIP Co de Phone Number [facility] [address] [place] [phone] * Iron And Total Iron Binding Capacity (04/21/2024 11:02 AM EST) Iron 70 30 - 160 mcg/dL [facility] Total Iron Binding Capacity 280 228 - 428 mcg/dL [facility] Percent Iron Saturation 25 15 - 50 % [facility] Unsaturated Iron Binding 210 ug/dL [facility] Blood Venous blood specimen / Unknown 04/21/2024 11:02 AM EST 04/21/2024 1:30 PM EST Caron Marrufo MD LAB BLOOD ORDERABLES Final Result Performing Organization Address City/[facility]/ZIP Co de Phone Number [facility] [address] [place] [phone] * Ferritin (04/21/2024 11:02 AM EST) Ferritin 34 10 - 122 ng/mL [facility] Blood Venous blood specimen / Unknown 04/21/2024 11:02 AM EST 04/21/2024 1:30 PM EST Carno Marrufo MD LAB BLOOD ORDERABLES Final Result Performing Organization Address [facility] de Phone Number [facility] [address] [place] [phone] * Vitamin B12 (04/21/2024 11:02 AM EST) Pathologist [facility] Vitamin B12 375 200 - 900 pg/mL [facility] Comment:NORMAL 200-900 PG/ML INDETERMINATE 160-199 PG/ML DEFICIENT < 160 PG/ML Blood Venous blood specimen / Unknown 04/21/2024 11:02 AM EST 04/21/2024 1:30 PM EST Caron Marrufo MD LAB BLOOD ORDERABLES Final Result Performing Organization Address [facility] de Phone Number [facility] [address] [place] [phone] * Hepatic Function Panel (04/21/2024 11:02 AM EST) Bilirubin, Total 0.5 0.0 - 1.0 mg/dL [facility] Bilirubin, Direct 0.2 0.0 - 0.5 mg/dL [facility] Aspartate Amino Transferase 26 5 - 31 U/L [facility] Alanine Aminotransferase 16 0 - 31 U/L [facility] Total Protein 7.0 6.5 - 8.0 g/dL [facility] Albumin Level 3.9 3.5 - 5.0 g/dL [facility] Alkaline Phosphatase 67 39 - 117 U/L [facility] Blood Venous blood specimen / Unknown 04/21/2024 11:02 AM EST 04/21/2024 1:30 PM EST Caron Marrufo MD LAB BLOOD ORDERABLES Final Result Performing Organization Address [facility] Co de Phone Number [facility] [address] [place] [phone] * Lipid Panel, Standard (04/21/2024 11:02 AM EST) Triglycerides 51 <150 mg/dL [facility] Comment:Slight Lipemia.Santa able Triglyceride: less than 150 mg/dLBorderline High Triglyceride 150-199 mg/dLHigh Triglyceride: 200-499 mg/dLVery High Triglyceride: greater than or equal to 5OO mg/dL Cholesterol 116 <200 mg/dL [facility] Comment:Desirable Cholestero l: less than 200 mg/dLBorderline High Cholesterol: 200-239 mg/dLHigh Cholesterol: greater than 239 mg/dL LDL Cholesterol Calculated 49 <100 mg/dL [facility] Comment:Desirable LDL: less than 100 mg/dLNear Optimal/Above Optimal LDL: 110- 129 mg/dLBorderline High LDL: 130-159 mg/dLHigh LDL: 160-189 mg/dLVery High LDL: greater than or equal to 190 mg/dL HDL Cholesterol 57 >40 mg/dL [facility] Comment:Desirable HDL: great er than 40 mg/dL Note: This HDL assay may give artificially low results in patients with liver disease. Blood Venous blood specimen / Unknown 04/21/2024 11:02 AM EST 04/21/2024 1:30 PM EST Caron Marrufo MD LAB BLOOD ORDERABLES Final Result Performing Organization Address [facility] Co de Phone Number [facility] [address] [place] [phone] * (ABNORMAL) Basic Metabolic Panel (04/21/2024 11:02 AM EST) Sodium 139 135 - 145 mmol/L [facility] Potassium 3.7 3.3 - 5.1 mmol/L [facility] Chloride 109(H) 96 - 108 mmol/L [facility] Carbon Dioxide 24 22 - 29 mmol/L [facility] Anion Gap 10(L) 12 - 20 [facility] Urea Nitrogen (BUN) 10 9 - 16 mg/dL [facility] Creatinine, Serum 0.66 0.5 - 1.4 mg/dL [facility] Estimated Glomerular Filt Rate >60 [facility] Comment:Chronic Kidney Disea se: Estimated GFR < 60 mL/min/1.63u3Tqnofg Kidney Disease: Estimated GFR < 15 mL/min/1.73m2 Glucose 82 60 - 115 mg/dL [facility] Calcium 8.9 8.4 - 10.2 mg/dL [facility] Blood Venous blood specimen / Unknown 04/21/2024 11:02 AM EST 04/21/2024 1:30 PM EST Caron Marrufo MD LAB BLOOD ORDERABLES Final Result Performing Organization Address City/[facility]/ZIP Co de Phone Number [facility] [address] [place] [phone] * RPR (Monitor) with Reflex to??Titer (03/27/2024 2:04 PM EST) RPR (Monitor) w/Refl Titer NON-REACTI VE NON-REACT GAYLE [facility] Comment:THIS TEST WAS PERFOR MED AT:[facility] [place] [phone] ROBERSON MD Rapid Plasma Reagin Ab Titer TNP [facility] Blood Venous blood specimen / Unknown 03/27/2024 2:04 PM EST 03/27/2024 4:00 PM EST Viraj Rendon MD LAB BLOOD ORDERABLES Final Resul t [facility] [address] [place] [phone] * Hepatitis C Antibody with Reflex to HCV, RNA, Quantitative, Real-Time PCR (03/27/2024 2:00 PM EST) Pathologist [facility] Hepatitis C Antibody Nonreactive Nonreactive [facility] Comment:Antibodies to HCV no t detected; does not exclude early acuteHCV infection. Blood Venous blood specimen / Unknown 03/27/2024 2:00 PM EST 03/27/2024 4:00 PM EST us Viraj Rendon MD LAB BLOOD ORDERABLES Final Resul t Performing Organization Address [facility]/ZIP Co de Phone Number [facility] [address] [place] [phone] * Hepatitis B surface antigen, EIA (03/27/2024 2:00 PM EST) [facility] Hepatitis B Surface Ag Negative Negative [facility] Blood Venous blood specimen / Unknown 03/27/2024 2:00 PM EST 03/27/2024 4:00 PM EST us Viraj Rendon MD LAB BLOOD ORDERABLES Final Resul t Performing Organization Address [facility] Co de Phone Number [facility] [address] [place] [phone] * HIV-1/2 Antigen and Antibodies, Fourth Generation, with Reflexes (03/27/2024 2:00 PM EST) Pathologist [facility] HIV AB/AG Nonreactive Nonreactive [facility] Comment:HIV-1 p24 Ag and/or HIV-1/HIV-2 Ab not detected.A test result that is nonreactive does not exclude thepossibility of exposure to or infection with HIV-1 and/orHIV-2. Nonreactive results in this assay for individualswith prior exposure to HIV-1 and/or HIV-2 may be due toantigen and antibody levels that are below the limit ofdetection of this assay.The [employer] HIV Ag/Ab Combo assay result andsupplemental assay results should be interpreted inconjunction with the patient's clinical presentation,history and other laboratory results. If the results areinconsistent with clinical evidence, additional testing issuggested to confirm the result. Blood Venous blood specimen / Unknown 03/27/2024 2:00 PM EST 03/27/2024 4:00 PM EST us Viraj Rendon MD LAB BLOOD ORDERABLES Final Resul t Performing Organization Address [facility] Co de Phone Number [facility] [address] [place] [phone] * Hepatitis B Surface Antibody, Qualitative (03/27/2024 2:00 PM EST) Pathologist [facility] ~Hepatitis B Surface Antibody REACTIVE Nonreactive [facility] Comment:REACTIVE: > 11.99 mI U/mL Blood Venous blood specimen / Unknown 03/27/2024 2:00 PM EST 03/27/2024 4:00 PM EST Viraj Rendon MD LAB BLOOD ORDERABLES Final Resul t Performing Organization Address [facility] de Phone Number [facility] [address] [place] [phone] * POCT Urine (03/27/2024 1:51 PM EST) Only the most recent of2 resultswithin the time period is included. Pathologist [facility] Preg Test, Ur Negative Negative, Indeterminate, None Detected, Invalid, Specimen unsatisfactory for evaluation, Weakly Positive QC Media Lot # [id number] Lot# Expiration Date [id number] Urine 03/27/2024 1:51 PM EST us Caron Marrufo MD POINT OF CARE TEST ENTER/E DIT ORDERABLES Final Result * XR Shoulder 2+ Views Left (03/26/2024 4:56 PM EST) Only the most recent of2 resultswithin the time period is included. Anatomical Region Laterality Modality Upper Extremities, Shoulder Left Radi ographic Imaging 03/26/2024 4:56 PM EST Narrative 03/26/2024 4:57 PM EST ? [facility] ?[address] ?[place], [place] [address] ?XRay Report ? Signed ? Patient: Toure,Yaretsmelly ?MR#: [id number] ?? [id number] ? : 2000 ?Acct:[id number] ? Age/Sex: 24 / F ?ADM Date: 03/26/24 ? Loc: HO.ED ? Attending Dr: ? Ordering Physician: Thai Sanches ?? Date of Service: 03/26/24 ?? Procedure(s): XR shoulder LT min 2V ?? Accession Number(s): [id number] ? cc: Caron Marrufo MD; Thai Sanches [...] ? DD/ 55 ? TD/TT: 03/26/241655 ? [employer]ounds[employer] Laborer: ? Procedure Note Annette Adams - 03/26/[address] [address] XRay Report Signed Patient: Kelvin ToureMR#: [id number] : 2000Acct:[id number] Age/Sex: 24 / FADM Date: 03/26/24 Loc: HO.ED Attending Dr: Ordering Physician: Thai Sanches Date of Service: 03/26/24 Procedure(s): XR shoulder LT min 2V Accession Number(s): [id number] cc: Caron Marrufo MD; Thai Sanches CLINICAL [...] in OV> 03/26/241655 DD/ 55 TD/TT: 03/26/241655 [employer]ounds[employer] Laborer: [facility] External Provider IMG XR PROCEDURES Edited Result - Final * (ABNORMAL) Bacterial Vaginosis Panel (03/25/2024 12:16 PM EST) TRICHOMONAS VAGINALIS DETECTION BY PCR NOT DETECTED Not Detect [facility] BACTERIAL VAGINOSIS DETECTION BY PCR POSITIVE(A) Negative [facility] Comment:The BV organism targ ets of [...] DETECTION BY PCR NOT DETECTED Not Detect [facility] Michelle glab krusei PCR NOT DETECTED Not Detect [facility] Swab Vaginal structure / Unknown 03/25/2024 12:16 PM EST 03/25/2024 1:32 PM EST Viraj Rendon MD LAB MICROBIOLOGY - GENERAL ORDER TRAVON Final Result [facility] [address] [place] [phone] * (ABNORMAL) Chlamydia/N. Gonorrhoeae RNA, TMA, Urogenitial (03/25/2024 12:16 PM EST) CT PCR DETECTED(A) Not Detect. [facility] Comment:Detected results may be observed after [...] the ordering clinician orclinical facility [facility] required by state law. NG PCR NOT DETECTED Not Detect. [facility] Comment:A not detected test result does [...] PM EST 03/25/2024 1:32 PM EST Narrative [facility] - 03/25/2024 4:14 PM EST Vaginal us Viraj Name MD LAB MICROBIOLOGY - GENERAL ORDER TRAVON Final Result [facility] [address] [place] [phone] * (ABNORMAL) POCT Urinalysis (03/25/2024 11:19 [...] 03/25/2024 11:1 9 AM EST us Viraj Name POINT OF CARE TEST ENTER/EDIT OR DERABLES Final Result from Last 3 Months Insurance Advance Directives Documents on File Type Date Recorded Patient Business Database Analyst Expl anation Advance Directives and Living Will 03/28/2024 1:19 PM Health Care Proxy Care Teams Correctional Probation Officer Relationship Specialty Start Date End Date Caron Marrufo MD [address] [place] [phone] PCP - General Family Medicine 12/23/23
[2024-04-28 18:42] LABS: CT PCR NOT DETECTED (Not Detect.); NG PCR NOT DETECTED (Not Detect.)
[2024-05-01 17:27] LABS: TS Negative Control Passed; TS Panel A 0; TS Panel B 1; TS Positive Control Passed; TSpotTB Negative (Negative)
== END 2024-04-28 11:46 | disposition home or self-care (01) ==
LOC: HO.HHCL 11:45
PROVIDERS: Visit Provider Family Medicine
DX: Z11.3 Encounter for screening for infections with a predominantly sexual mode of transmission (principal); Z11.1 Encounter for screening for respiratory tuberculosis
CPT/HCPCS: 86481; 87491; 87591

== ENCOUNTER 2024-05-22 10:13 | Outpatient (AMB) | payer MEDICAID, SELFPAY ==
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
[2024-05-22 10:22] VITALS: BMI 20.2
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
--- OUTSIDE RECORDS SUMMARY | 2024-05-22 11:24 | XMS_ITS | Clinical Summary ---
Author Organization [employer] Address [address] [facility] [address] [place] [address] Care Team Providers Care Brake Repairer Bus Name Role Phone Caron Marrufo MD Primary Care Provider [phone] Allergies No known active allergies Medications medroxyPROGESTER one (Depo-Provera) 150 MG/ML injectionIndicat ions:Family planning Inject 1 mL (150 mg) into the muscle every 3 (three) months. 1 mL 3 03/27/2024 Active Active Problems Problem Noted Date Diagnosed [...] due after 04/21/25 -eye care facilitated by [facility] [place] -dental home encouraged -simon care proxy filed 03/27/24 Assessment & Plan (04/21/2024 10:23 AM EST): -next comprehensive annual evaluation due after 04/21/25 -eye care facilitated by [facility] [place] -dental home [...] Encounters Date Type Department Care Team Description 05/17/2024 Population Health Risk Score [facility] (C3) Department [address] [place] [phone] Provider, Population Health Generic 04/27/2024 Telephone [facility] [address] [place] [phone] Caron Marrufo MD Lab Orders 04/24/2024 Telephone [facility] [address] [place] [address] Caron Marrufo MD Results 04/21/2024 10:00 AM EST Office Visit [address] [address] Caron Marrufo MD Iron deficiency anemia, unspecified iron deficiency anemia type (Primary Dx); Other fatigue; Routine screening for STI (sexually transmitted infection); Encounter for immunization; Other specified health status 04/21/2024 Travel 04/17/[address] [address] Preeti Townsend MA chartprep 04/07/2024 Patient Outreach [address] [address] Caron Marrufo MD Pre-visit Planning (Pre-visit planning - LVM ) 04/03/[address] [address] Caron Marrufo MD In person triage 03/28/[address] [address] Caron Marrufo MD Results 03/27/2024 1:05 PM EST Procedure Visit [address] [address] Caron Marrufo MD Family planning (Primary Dx); Dietary counseling; Exercise counseling; Other specified health status; Encounter for contraceptive management, unspecified type 03/27/2024 Travel 03/27/[address] [address] Caron Marrufo MD Appointment Request 03/26/2024 Orders Only [facility] External Provider, [facility] 03/26/[address] [address] Viraj Rendon MD 03/25/2024 11:40 AM EST Office Visit [facility] [address] [address] Viraj Rendon MD Suprapubic pain (Primary Dx) 03/25/2024 Travel 03/23/2024 2:00 PM EST Clinical Support [address] [address] Bre Polanco RN Encounter for contraceptive management, [...] 10:00 AM EDT Procedure Visit [facility] [address] [place] [phone] Caron Marrufo MD [address] [place] [address] 06/19/2024 9:30 AM EDT Clinical Support [facility] [address] [place] [phone] Health Maintenance Due Date Last Done Comments Pap Smear 2023 COVID-19 Vaccine ( season) 2025 07/15/2020, 06/16/2020 Postponed from 10/24/2023 (Patient Refused) Family Planning (PISQ) 03/27/2025 03/27/2024 Alcohol/Substance Use Screening 04/21/2025 04/21/2024 Depression Screening 04/21/2025 04/21/2024, 04/21/19 SDOH Screening 04/21/2025 04/21/2024 Tobacco Screening 04/21/2025 04/21/2024 Chlamydia and Gonorrhea Screening 04/28/2025 04/28/2024, 03/25/2024 DTaP/Tdap/Td Vaccines (8 - Td or Tdap) [...] Procedure Name Priority Date/Time Associated Diagnosis Comments T-SPOT(R).TB Routine 04/28/2024 11:47 AM EST Screening for tuberculosis CHLAMYDIA/N. GONORRHOEAE RNA, TMA, UROGENITAL Routine 04/28/2024 11:47 AM EST Routine screening for STI (sexually transmitted infection) VITAMIN D,25-OH,TOTAL,IA Routine 04/21/2024 11:02 AM EST [...] type from Last 3 Months Results * T-SPOT??.TB (04/28/2024 11:47 AM EST) [facility] T Spot TB Negative Negative [facility] Comment:A negative test resu lt does not exclude the possibilityof exposure to or infection with Mycobacteriumtuberculosis (M. tuberculosis). Patients with recentexposure to TB infected individuals exhibiting anegative T-SPOT.TB result should be considered forretesting within 6 weeks or if other relevant clinicalsymptoms indicate. Results from T-SPOT.TB testing mustbe used in conjunction with each individual'sepidemiological history, current medical status,and results of other diagnostic evaluations.The T-SPOT.TB test is qualitative and results arereported as positive, borderline, or negative, giventhat the test controls perform as expected. In linewith the Centers for Disease Control and Prevention's2010 recommendation to report quantitative measurementsalongside the qualitative result, the laboratoryprovides spot counts for informational purposes only.The T-SPOT.TB test should not be interpreted as aquantitative test. TS PANEL A 0 [facility] TS PANEL B 1 [facility] Negative Control Passed [facility] Positive Control Passed [facility] Comment:For additional infor sindhu, please refer tohttp://education.[employer]/faq/XDY782(This link is being provided for informational/educational purposes only.)THIS TEST WAS PERFORMED AT:[employer] [id number] [place] [id number] SANDY MD,PHD 04/28/2024 11:4 7 AM EST 04/28/2024 1:12 PM EST Caron Marrufo MD LAB BLOOD ORDERABLES Final Result [facility] [address] [place] [address] [phone] * Chlamydia/N. Gonorrhoeae RNA, TMA, Urine (04/28/2024 11:47 AM EST) Only the most recent of2 resultswithin the time period is included. CT PCR NOT DETECTED Not Detect. [facility] Comment:A not detected test result [...] lead to adverse medical, social or psychologicalconsequences. NG PCR NOT DETECTED Not Detect. [facility] Comment:A not detected test result [...] lead to adverse medical, social or psychologicalconsequences. Urine (Urine, Random) 04/28/2024 11:47 AM EST 04/28/2024 1:04 PM EST Narrative [facility] - 04/28/2024 6:42 PM EST Urine Caron Marrufo MD LAB MICROBIOLOGY - GENERAL ORDERABLES Final Result [facility] [address] [place] [phone] * Vitamin D, 25-Hydroxy, Total, Immunoassay (04/21/2024 11:02 AM EST) Vitamin D 25-OH Total 58.2 >30 ng/mL [facility] Comment:Health Based Referen ce Values*< 20 ng/mL Jponnlpam80-23 ng/mL Insufficient> 30 ng/mL Sufficient*Chelsey BERGERON. N [...] Marrufo MD LAB BLOOD ORDERABLES Final Result [facility] [address] [place] [phone] [phone] * TSH with Reflex to Free T4 (04/21/2024 11:02 AM EST) [facility] TSH reflex Free T4 0.36 0.32 - 4.0 uIU/mL [facility] Blood 04/21/2024 11:0 2 AM EST 04/21/2024 1:30 PM EST Caron Marrufo MD LAB BLOOD ORDERABLES Final Result Performing Organization Address [facility] Co de Phone Number [facility] [address] [place] [phone] * (ABNORMAL) CBC auto differential (04/21/2024 11:02 AM EST) [facility] White Blood Count 6.7 4.8 - 10.8 X10*3/uL [facility] Red Blood Count 4.14(L) 4.20 - 5.50 X10*6/uL [facility] Hemoglobin 13.0 12.0 - 16.0 g/dl [facility] Hematocrit 38.8 37.0 - 47.0 % [facility] Mean Corpuscular Volume 93.7 80.0 - 98.0 fL [facility] Mean Corpuscular Hemoglobin 31.4 27.0 - 33.0 pg [facility] Mean Corpuscular HGB Conc 33.5 31.0 - 35.0 g/dl [facility] Red Cell Distribution Width 13.0 11.0 - 16.0 % [facility] Platelet Count 205 160 - 400 X10*3/uL [facility] Mean Platelet Volume 11.5 9.4 - 12.3 fL [facility] Neutrophils Percent Auto 44.3(L) 45 - 73 % [facility] Imm Gran Pct Auto 0.3 0.0 - 0.4 % [facility] Lymphocytes Percent Auto 47.6(H) 20 - 40 % [facility] Monocytes Percent Auto 5.4 2 - 11 % [facility] Eosinophils Percent Auto 1.8 0 - 4 % [facility] Basophils Percent Auto 0.6 0 - 2 % [facility] NRBC Pct Auto 0.0 0.0 - 0.2 /100WBC [facility] Neutrophils Absolute Auto 3.0 2.0 - 8.3 x10*3/uL [facility] Imm Gran Abs Auto 0.02 0.00 - 0.03 X10*3/uL [facility] Lymphocytes Absolute Auto 3.2 1.2 - 4.9 X10*3/uL [facility] Monocytes Absolute Auto 0.4 0.1 - 1.2 X10*3/uL [facility] Eosinophils Absolute Auto 0.1 0.0 - 0.4 X10*3/uL [facility] Basophils Absolute Auto 0.0 0.0 - 0.2 X10*3/uL [facility] NRBC Abs Auto 0.000 0.0 - 0.012 X10*3/uL [facility] Blood Venous blood specimen / Unknown 04/21/2024 11:02 AM EST 04/21/2024 1:30 PM EST us Caron Marrufo MD LAB BLOOD ORDERABLES Final Result [facility] [address] [place] [phone] * Iron And Total Iron Binding Capacity (04/21/2024 11:02 AM EST) Iron 70 30 - 160 mcg/dL [facility] Total Iron Binding Capacity 280 228 - 428 mcg/dL [facility] Percent Iron Saturation 25 15 - 50 % [facility] Unsaturated Iron Binding 210 ug/dL [facility] Blood Venous blood specimen / Unknown 04/21/2024 11:02 AM EST 04/21/2024 1:30 PM EST Caron Marrufo MD LAB BLOOD ORDERABLES Final Result Performing Organization Address [facility]/ZIP Co de Phone Number [facility] [address] [place] [phone] * Ferritin (04/21/2024 11:02 AM EST) Ferritin 34 10 - 122 ng/mL [facility] Blood Venous blood specimen / Unknown 04/21/2024 11:02 AM EST 04/21/2024 1:30 PM EST Caron Marrufo MD LAB BLOOD ORDERABLES Final Result Performing Organization Address [facility] Co de Phone Number [facility] [address] [place] [phone] * Vitamin B12 (04/21/2024 11:02 AM EST) Vitamin B12 375 200 - 900 pg/mL [facility] Comment:NORMAL 200-900 PG/ML INDETERMINATE 160-199 PG/ML DEFICIENT < 160 PG/ML Blood Venous blood specimen / Unknown 04/21/2024 11:02 AM EST 04/21/2024 1:30 PM EST Caron Marrufo MD LAB BLOOD ORDERABLES Final Result Performing Organization Address [facility] Co de Phone Number [facility] [address] [place] [phone] * Hepatic Function Panel (04/21/2024 11:02 AM EST) Bilirubin, Total 0.5 0.0 - 1.0 mg/dL [facility] Bilirubin, Direct 0.2 0.0 - 0.5 mg/dL [facility] Aspartate Amino Transferase 26 5 - 31 U/L [facility] Alanine Aminotransferase 16 0 - 31 U/L [facility] Total Protein 7.0 6.5 - 8.0 g/dL [facility] Albumin Level 3.9 3.5 - 5.0 g/dL [facility] Alkaline Phosphatase 67 39 - 117 U/L [facility] Blood Venous blood specimen / Unknown 04/21/2024 11:02 AM EST 04/21/2024 1:30 PM EST Caron Marrufo MD LAB BLOOD ORDERABLES Final Result Performing Organization Address City/[facility]/ZIP Co de Phone Number [facility] [address] [place] [phone] * Lipid Panel, Standard (04/21/2024 11:02 AM EST) Triglycerides 51 <150 mg/dL [facility] Comment:Slight Lipemia.Santa able Triglyceride: less than 150 mg/dLBorderline High Triglyceride 150-199 mg/dLHigh Triglyceride: 200-499 mg/dLVery High Triglyceride: greater than or equal to 5OO mg/dL Cholesterol 116 <200 mg/dL [facility] Comment:Desirable Cholestero l: less than 200 mg/dLBorderline High Cholesterol: 200-239 mg/dLHigh Cholesterol: greater than 239 mg/dL LDL Cholesterol Calculated 49 <100 mg/dL [facility] Comment:Desirable LDL: less than 100 mg/dLNear Optimal/Above Optimal LDL: 110- 129 mg/dLBorderline High LDL: 130-159 mg/dLHigh LDL: 160-189 mg/dLVery High LDL: greater than or equal to 190 mg/dL HDL Cholesterol 57 >40 mg/dL [facility] Comment:Desirable HDL: great er than 40 mg/dL Note: This HDL assay may give artificially low results in patients with liver disease. Blood Venous blood specimen / Unknown 04/21/2024 11:02 AM EST 04/21/2024 1:30 PM EST Caron Marrufo MD LAB BLOOD ORDERABLES Final Result Performing Organization Address City/[facility]/ZIP Co de Phone Number [facility] [address] [place] [phone] * (ABNORMAL) Basic Metabolic Panel (04/21/2024 11:02 AM EST) Sodium 139 135 - 145 mmol/L [facility] Potassium 3.7 3.3 - 5.1 mmol/L [facility] Chloride 109(H) 96 - 108 mmol/L [facility] Carbon Dioxide 24 22 - 29 mmol/L [facility] Anion Gap 10(L) 12 - 20 [facility] Urea Nitrogen (BUN) 10 9 - 16 mg/dL [facility] Creatinine, Serum 0.66 0.5 - 1.4 mg/dL [facility] Estimated Glomerular Filt Rate >60 [facility] Comment:Chronic Kidney Disea se: Estimated GFR < 60 mL/min/1.93a7Cuakhz Kidney Disease: Estimated GFR < 15 mL/min/1.73m2 Glucose 82 60 - 115 mg/dL [facility] Calcium 8.9 8.4 - 10.2 mg/dL [facility] Blood Venous blood specimen / Unknown 04/21/2024 11:02 AM EST 04/21/2024 1:30 PM EST Caron Marrufo MD LAB BLOOD ORDERABLES Final Result [facility] [address] [place] [phone] [phone] * RPR (Monitor) with Reflex to??Titer (03/27/2024 2:04 PM EST) RPR (Monitor) w/Refl Titer NON-REACTI VE NON-REACT GAYLE [facility] Comment:THIS TEST WAS PERFOR MED AT:[employer] [place] [phone] ROBERSON MD Rapid Plasma Reagin Ab Titer TNP [facility] Blood Venous blood specimen / Unknown 03/27/2024 2:04 PM EST 03/27/2024 4:00 PM EST us Viraj Rendon MD LAB BLOOD ORDERABLES Final Resul t Performing Organization Address [facility] Co de Phone Number [facility] [address] [place] [phone] * Hepatitis C Antibody with Reflex to HCV, RNA, Quantitative, Real-Time PCR (03/27/2024 2:00 PM EST) Hepatitis C Antibody Nonreactive Nonreactive [facility] Comment:Antibodies to HCV no t detected; does not exclude early acuteHCV infection. Blood Venous blood specimen / Unknown 03/27/2024 2:00 PM EST 03/27/2024 4:00 PM EST us Viraj Rendon MD LAB BLOOD ORDERABLES Final Resul t Performing Organization Address [facility] de Phone Number [facility] [address] [place] [phone] * Hepatitis B surface antigen, EIA (03/27/2024 2:00 PM EST) Hepatitis B Surface Ag Negative Negative [facility] Blood Venous blood specimen / Unknown 03/27/2024 2:00 PM EST 03/27/2024 4:00 PM EST us Viraj Rendon MD LAB BLOOD ORDERABLES Final Resul t Performing Organization Address [facility] de Phone Number [facility] [address] [place] [phone] * HIV-1/2 Antigen and Antibodies, Fourth Generation, with Reflexes (03/27/2024 2:00 PM EST) HIV AB/AG Nonreactive Nonreactive [facility] Comment:HIV-1 p24 Ag and/or HIV-1/HIV-2 Ab not detected.A test result that is nonreactive does not exclude thepossibility of exposure to or infection with HIV-1 and/orHIV-2. Nonreactive results in this assay for individualswith prior exposure to HIV-1 and/or HIV-2 may be due toantigen and antibody levels that are below the limit ofdetection of this assay.The [employer] HIV Ag/Ab Combo assay result andsupplemental assay results should be interpreted inconjunction with the patient's clinical presentation,history and other laboratory results. If the results areinconsistent with clinical evidence, additional testing issuggested to confirm the result. Blood Venous blood specimen / Unknown 03/27/2024 2:00 PM EST 03/27/2024 4:00 PM EST us Viraj Rendon MD LAB BLOOD ORDERABLES Final Resul t Performing Organization Address City/[facility]/ZIP Co de Phone Number [facility] [address] [place] [phone] * Hepatitis B Surface Antibody, Qualitative (03/27/2024 2:00 PM EST) Pathologist [facility] ~Hepatitis B Surface Antibody REACTIVE Nonreactive [facility] Comment:REACTIVE: > 11.99 mI U/mL Blood Venous blood specimen / Unknown 03/27/2024 2:00 PM EST 03/27/2024 4:00 PM EST us Viraj Rendon MD LAB BLOOD ORDERABLES Final Resul t Performing Organization Address City/[facility] Co de Phone Number [facility] [address] [place] [phone] * POCT Urine (03/27/2024 1:51 PM EST) Only the most recent of2 resultswithin the time period is included. Preg Test, Ur Negative Negative, Indeterminate, None Detected, Invalid, Specimen unsatisfactory for evaluation, Weakly Positive QC Media Lot # [id number] Lot# Expiration Date [id number] Urine 03/27/2024 1:51 PM EST us aCron Marrufo MD POINT OF CARE TEST ENTER/E DIT ORDERABLES Final Result * XR Shoulder 2+ Views Left (03/26/2024 4:56 PM EST) Only the most recent of2 resultswithin the time period is included. Anatomical Region Laterality Modality Upper Extremities, Shoulder Left Radi ographic Imaging 03/26/2024 4:56 PM EST Narrative 03/26/2024 4:57 PM EST ? [facility] ?[address] ?[place] [address] ?XRay Report ? Signed ? Patient: Toure,Yaretsmelly ?MR#: [id number] ?? [id number] ? : 2000 ?Acct:[id number] ? Age/Sex: 24 / F ?ADM Date: 03/26/24 ? Loc: HO.ED ? Attending Dr: ? Ordering Physician: Thai Sanches ?? Date of Service: 03/26/24 ?? Procedure(s): XR shoulder LT min 2V ?? Accession Number(s): [id number] ? cc: Caron Marrufo MD; Thai Sanches [...] ? DD/ 55 ? TD/TT: 03/26/241655 ? Supervisor Wet End: ? Procedure Note Annette Adams - 03/26/[address] [address] XRay Report Signed Patient: Kelvin ToureMR#: [id number] : 2000Acct:[id number] Age/Sex: 24 / FADM Date: 03/26/24 Loc: HO.ED Attending Dr: Ordering Physician: Thai Sanches Date of Service: 03/26/24 Procedure(s): XR shoulder LT min 2V Accession Number(s): [id number] cc: Caron Marrufo MD; Thai Sanches CLINICAL [...] in OV> 03/26/241655 DD/ 55 TD/TT: 03/26/241655 Supervisor Wet End: [facility] External Provider IMG XR PROCEDURES Edited Result - Final * (ABNORMAL) Bacterial Vaginosis Panel (03/25/2024 12:16 PM EST) TRICHOMONAS VAGINALIS DETECTION BY PCR NOT DETECTED Not Detect [facility] BACTERIAL VAGINOSIS DETECTION BY PCR POSITIVE(A) Negative [facility] Comment:The BV organism targ ets [...] DETECTION BY PCR NOT DETECTED Not Detect [facility] Michelle glab krusei PCR NOT DETECTED Not Detect [facility] Swab Vaginal structure / Unknown 03/25/2024 12:16 PM EST 03/25/2024 1:32 PM EST Viraj Rendon MD LAB MICROBIOLOGY - GENERAL ORDER TRAVON Final Result [facility] [address] [place] [phone] * (ABNORMAL) POCT Urinalysis (03/25/2024 11:19 [...] Final Result from Last 3 Months Insurance C3 Advance Directives Documents on File Type Date Recorded 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
--- OUTSIDE RECORDS SUMMARY | 2024-05-22 11:24 | XMS_ITS | Clinical Summary ---
Author Organization [facility] Address [address] [place] [address] Care Team Providers Care Rewind Operator Name Role Phone Krystal Cleveland PA-C Primary Care Provider Source Comments PLEASE NOTE, if this patient [...] degrees. Some back pain, will follow with [facility]. Immunizations Immunization Administration Dates Next Due DTAP (DAPTACEL),5 PERTUSSIS [...] Health Maintenance Due Date Last Done Comments Anxiety Screening 2002 HPV Screening 2002 Hepatitis C Screening 2002 Pap + HPV 2002 Tobacco Screening 2002 HIV Screening 2017 Relationship Safety Screening/Counseling 12/24/2022 12/24/2021 Cervical Cancer Screening 2023 Pap Smear 2023 Annual Preventive Care Visit 02/26/2023 02/26/2022 [id number] ( season) 10/24/202307/15/ 021, 06/16/2020 Imm-Influenza (#1) 2023 11/20/2022, 1 02/23/2021, 10/30/2014, Additional history exists Alcohol and Drug Screen 02/23/2024 04/26/19, 02/26/2022, 12/24/2021, Additional history exists Depression Annual Screen 02/23/2024 04/26/2023, 05/0 10/2016 Chlamydia Screening 04/25/2024 04/26/2023 Gonorrhea Screening 04/25/2024 04/26/2023 Hypertension Screening (#1) 04/25/2026 [...] TRACHOMATIS RNA, TMA NOT DETECTED NOT DETECTED [facility] NEISSERIA GONORRHOEAE RNA, TMA NOT DETECTED NOT DETECTED [facility] COMMENT [facility] SURESWAB(R) ADV BACTERIAL VAGINOSIS (BV), TMA NEGATIVE NEGATIVE [facility] MICHELLE SPECIES DETECTED(A) NOT DETECTED [facility] MICHELLE GLABRATA NOT DETECTED NOT DETECTED [facility] COMMENT [facility] TRICHOMONAS VAGINALIS (TV), TMA NOT DETECTED NOT DETECTED [facility] Vaginal Vaginal structure / Unknown 04/26/2023 4:22 PM EST 04/28/2023 12:58 AM EST Narrative [employer] [facility] - 04/28/2023 2:24 PM EST Michelle species C. albicans, C. tropicalis, C. parapsilosis, and/or C. dubliniensis can be detected, but not differentiated, in the Michelle spp. result. For additional information, please refer to https://education.[employer]/faq/KVV148 (This link is being provided for information/ educational purposes only.) [facility] - NO BLOOD DRAW Final Result [facility] [employer] [address] [address], [facility] [address] [phone] from Last 3 Months or Most Recently Relevant to Health Maintenance Insurance [facility] [employer] [address] [employer] Care Teams Rewind Operator Relationship Specialty Start Date End Date Krystal Cleveland PA-C [address] [place] [address] PCP - General FAMILY MEDICINEVINNY 10/23/21
== END 2024-05-22 10:34 | disposition home or self-care (01) ==
LOC: HO.HOS 10:14
PROVIDERS: PCP Family Medicine; Visit Provider Physician Assistant
DX: S43.005A Unspecified dislocation of left shoulder joint, initial encounter (principal)
CPT/HCPCS: 99213

== ENCOUNTER → 2024-05-22 10:13 | Outpatient (BNVA) | payer MEDICAID, SELFPAY | PROVIDERS: PCP Family Medicine; Visit Provider Physician Assistant | DX: S43.005A Unspecified dislocation of left shoulder joint, initial encounter (principal); W01.0XXA Fall on same level from slipping, tripping and stumbling without subsequent striking against object, initial encounter; Y93.9 Activity, unspecified; Y92.9 Unspecified place or not applicable; Y99.9 Unspecified external cause status | CPT/HCPCS: 99212 ==

== ENCOUNTER 2024-09-25 16:32 | Outpatient (REF) | payer MEDICAID, SELFPAY ==
--- OUTSIDE RECORDS SUMMARY | 2024-09-25 16:35 | XMS_ITS | Clinical Summary ---
Author Organization [employer] Address [address] [facility] 7t [place] [address] Care Team Providers Care Keyliner Name Role Phone Caron Marrufo MD Primary Care Provider +1- [phone] Babs Flakita Unavailable Allergies No known active allergies Medications levonorgestrel- ethinyl estradiol (Nordette) 0.15-30 MG-MCG tablet Take 1 tablet by mouth Once per day. 28 tablet 11 5 09/26/19 26 Active medroxyPROGESTE Juan Ramon (Depo-Provera) 150 MG/ML injectionIndica tions:Family planning Inject 1 mL (150 mg) into the muscle every 3 (three) months. 1 mL 3 5 09/26/19 25 Discontinued Active Problems Problem Noted Date Diagnosed Date Papanicolaou smear for cervical cancer screening 05/25/2024 Iron deficiency anemia 04/21/2024 Overview (05/25/2024): Lab Results Component Value Date FERRITIN 34 04/21/2024 HGB 13.0 04/21/2024 Hx of iron deficiency. -ordered iron labs [...] due after 04/21/25 -eye care facilitated by [facility] [place] -dental home encouraged -simon care proxy filed 03/27/24 Assessment & Plan (04/21/2024 10:23 AM EST): -next comprehensive annual evaluation due after 04/21/25 -eye care facilitated by [facility] [place] -dental temple encouraged -simon care proxy filed 03/27/24 Family [...] Encounters Date Type Department Care Team Description 09/25/2024 1:15 PM EDT Procedure Visit [facility] [address] [place] [phone] Liat Salcedo CNM Cervical cancer screening (Primary Dx); Family planning counseling; Encntr screen for infections w sexl mode of transmiss 09/25/2024 Travel 09/22/2024 Telephone [facility] [address] [place] [address] Mary Whittaker JOSE 09/18/2024 Telephone [facility] [address] [place], [place] [phone] Caron Marrufo MD Medication Question 09/12/2024 Telephone [facility] [address] [place] [address] Caron Marrufo MD Appointment Request from Last 3 Months Immunizations Immunization Administration Dates Next Due DTaP, 5 pertussis [...] Q2 Not on file 04/21/2024 Comments Unknown Intention Date Recorded No desire to become (finding) 0 09/25/2024 Sex and Gender Information Value Date Recorded Sex Assigned at Female 06/26/2022 10:25 AM EDT Legal Sex Female 10:24 AM EDT Gender Identity Female 06/26/2022 10:25 AM EDT Sexual Orientation Straight 06/26/2022 10 :25 AM EDT Last Filed Vital Signs Vital Sign Reading Time Taken Comments Blood Pressure 98/64 09/25/2024 1:17 PM EDT Pulse 74 09/25/2024 1:17 PM EDT Temperature 37.1 C (98.7 F) 09/25/2024 1:17 PM EDT Respiratory Rate 12 09/25/2024 1:17 PM EDT Oxygen Saturation 99% 09/25/2024 1:17 PM EDT Inhaled Oxygen Concentration - - Weight 60.5 kg (133 lb 6.4 oz) 09/25/2024 1:17 P M EDT Height 167.6 cm (5' 6 ) 04/21/2024 10:07 AM EST Body Mass Index 21.53 04/21/2024 10:07 AM EST Plan of Treatment Health Maintenance Due Date Last Done Comments Meningococcal B Vaccine (1 of 2 - Standard) 2018 Pap Smear 2023 Influenza Vaccine (#1) 2024 , 11/20/2022, 12/24/2021, Additional history exists COVID-19 Vaccine ( season) 2025 07/15/2020, 06/16/2020 Postponed from 10/24/2023 (Patient Refused) Alcohol/Substance Use Screening 04/21/2025 04/21/2024 Depression Screening 04/21/2025 04/21/2024, 04/21/19 SDOH Screening 04/21/2025 04/21/2024 Chlamydia and Gonorrhea Screening 04/28/2025 04/28/2024, 03/25/2024 Disability Screening 09/25/2025 09/25/2024 Family Planning (PISQ) 09/25/2025 09/25/2024 Tobacco Screening 09/25/2025 09/25/2024 DTaP/Tdap/Td Vaccines (9 - Td or Tdap) 04/21/2034 04/21/2024, 04/03/2022, 10/04/2013, Additional history exists Zoster Vaccines (1 of [...] Years) and At-Risk Patients (6 to 49) Years Aged Out 07/02/2014 No longer eligible based on patient's age to complete this topic HIV Screening Completed 03/27/2024 Hepatitis C Screening Completed 03/27/2024 IPV Vaccines Aged Out No longer eligi ble based on patient's age to complete this topic RSV under 20 months Aged Out No longe r eligible based on patient's age to complete this topic Rotavirus Vaccines Aged Out No longer eligible based on patient's age to complete this topic Procedures Procedure Name Priority Date/Time Associated Diagnosis Comments CHLAMYDIA/N. GONORRHOEAE RNA, TMA, UROGENITAL Routine 04/28/2024 11:47 AM EST Routine screening for STI (sexually transmitted infection) HEPATITIS C AB W/REFL TO HCV RNA, QN, PCR Routine 03/27/2024 2:00 PM EST Chlamydia infection HIV 1/2 ANTIGEN/ANTIBODY, FOURTH GENERATION W/RFL Routine 03/27/2024 2:00 PM EST Chlamydia infection from Last 3 Months or Most Recently Relevant to Health Maintenance Results * Chlamydia/N. Gonorrhoeae RNA, TMA, Urine (04/28/2024 11:47 AM EST) CT PCR NOT DETECTED Not Detect. [facility] Comment:A not detected test result does [...] psychologicalconsequences. NG PCR NOT DETECTED Not Detect. [facility] Comment:A not detected test result does [...] AM EST 04/28/2024 1:04 PM EST Narrative [facility] - 04/28/2024 6:42 PM EST Urine Caron Marrufo MD LAB MICROBIOLOGY - GENERAL ORDERABLES Final Result Performing Organization Address City/[facility]/ZIP Co de Phone Number [facility] [address] [place] [phone] * Hepatitis C Antibody with Reflex to HCV, RNA, Quantitative, Real-Time PCR (03/27/2024 2:00 PM EST) Hepatitis C Antibody Nonreactive Nonreactive [facility] Comment:Antibodies to HCV no t detected; does not exclude early acuteHCV infection. Blood Venous blood specimen / Unknown 03/27/2024 2:00 PM EST 03/27/2024 4:00 PM EST Viraj Rendon MD LAB BLOOD ORDERABLES Final Resul t Performing Organization Address [facility] Co de Phone Number [facility] [address] [place] [phone] * HIV-1/2 Antigen and Antibodies, Fourth Generation, with Reflexes (03/27/2024 2:00 PM EST) HIV AB/AG Nonreactive Nonreactive [facility] Comment:HIV-1 p24 Ag and/or HIV-1/HIV-2 Ab not detected.A test result that is nonreactive does not exclude thepossibility of exposure to or infection with HIV-1 and/orHIV-2. Nonreactive results in this assay for individualswith prior exposure to HIV-1 and/or HIV-2 may be due toantigen and antibody levels that are below the limit ofdetection of this assay.The [employer] HIV Ag/Ab Combo assay result andsupplemental assay results should be interpreted inconjunction with the patient's clinical presentation,history and other laboratory results. If the results areinconsistent with clinical evidence, additional testing issuggested to confirm the result. 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
[2024-09-27 22:19] LABS: C. trachomatis RNA TMA NOT DETECTED (NOT DETECTED); N. gonorrhoeae RNA TMA NOT DETECTED (NOT DETECTED); Trichomonas (NAAT) NOT DETECTED (NOT DETECTED)
== END 2024-09-25 16:33 | disposition home or self-care (01) ==
LOC: HO.HHCLNP 16:32
PROVIDERS: Visit Provider Advanced Practice Midwife
DX: Z11.3 Encounter for screening for infections with a predominantly sexual mode of transmission (principal); Z12.4 Encounter for screening for malignant neoplasm of cervix
CPT/HCPCS: 87491; 87591; 87661; 88175

== ENCOUNTER 2024-10-31 11:14 | Outpatient (REF) | payer MEDICAID, SELFPAY ==
--- OUTSIDE RECORDS SUMMARY | 2024-10-31 10:40 | XMS_ITS | Encounter Summary ---
Author Organization [employer] Address [address] [facility] 7t [place] [address] Care Team Providers Care Family And Marriage Counsellor Name Role Phone Caron Marrufo MD Primary Care Provider +1- [phone] Flakita Brice Unavailable Reason for Visit * Reason Comments UTI Encounter Details Date Type Department Care Team ([facility] st Contact Info) Description 10/31/2024 10:40 AM EDT Office Visit [facility] [address] [place] [address] [phone] Caron Marrufo MD [address] [place] [address] [phone] Candidiasis (Primary Dx) Social History Tobacco Use Types [...] Sign Reading Time Taken Comments Blood Pressure 110/60 10/31/2024 10:19 AM EDT Pulse 69 10/31/2024 10:19 AM EDT Temperature 36.7 C (98 F) 10/31/2024 10:19 AM EDT Respiratory Rate 16 10/31/2024 10:1 9 AM EDT Oxygen Saturation 98% 10/31/2024 10: 19 AM EDT Inhaled Oxygen Concentration - - Weight 61.6 kg (135 lb 12.8 oz) 025 10:19 AM EDT Height 167.6 cm (5' 6 ) 10/31/2024 10:1 9 AM EDT Body Mass Index 21.92 10/31/2024 10:19 AM EDT documented in this encounter Progress Notes * Caron Marrufo MD - 10/31/2024 10:40 AM EDT Amie Toure is a 24 y.o. female here for evaluation of initial hesitancey but now irritation of the vulva beginning 1 week ago. Other associated symptoms include: vaginal itching. Fever has been absent. Symptoms which are not present include: diarrhea and hematuria. UTI history: none. Antib iotic use within past three months: none Objective BP 110/60 (BP Location: Left arm, Patient Position: Sitting, BP Cuff Size: Adult) Pulse 69 Temp98 ??F (36.7 ??C) (Temporal) Resp 16 Ht 5' 6 (1.676 m) Wt 135 lb 12.8 oz (61.6 kg) SpO2 98% BMI 21.92 kg/m?? Physical Exam Genitourinary: Comments: Mild erythremia and scant white discharge in labia minora and vault. Wet mount with AMADOU, negatieve for clue and trich; + hyphae and budding yeast Lab review No visits with results within 1 Day(s) from this visit. Latest known visit with results is: Procedure Visit on 09/25/2024 Component Date Value Ref Range Status Trichomonas (NAAT) 09/25/2024 NOT DETECTED NOT DETECTED Final The analytical performance characteristics of thisassay have been determined by [employer]. Themodifications have not been cleared or approved bythe FDA. This assay has been validated pursuantto theCLIA regulations and is used for clinical purposes.For additional information, please refer to http://education.Bibulu/faq/Trichomonastma(This link is being provided for information/educational purposes only.)THIS TEST WAS PERFORMED AT:[facility] [place] [phone] ROBERSON MD CTNG Ref Lab 09/25/2024 NOT DETECTED NOT DETECTED Final NG Ref Lab 09/25/2024 NOT DETECTED NOT DETECTED Final There are no diagnoses linked to this encounter. Assessment & Plan Candidiasis -Wet prep with AMADOU significant for hyphae and budding yeast. -diflucan 150 po x 1 -Candidiasis prevention discussed. Orders: POCT urinalysis dipstick manually resulted POCT , urine manually resulted Urinalysis, Complete, with Reflex to Culture Chlamydia/N. Gonorrhoeae RNA, TMA, Vaginal fluconazole (Diflucan) 150 MG tablet; Take 1 tablet (150 mg) by mouth 1 (one) time for 1 dose. HIV-1/2 Antigen and Antibodies, Fourth Generation, with Reflexes; Future Syphilis Screen; Future documented in this encounter Plan of Treatment Upcoming Encounters Date Type Department Care Team (Late st Contact Info) Description 12/26/2024 9:15 AM EST Office Visit [facility] [address] [place] [address] Liat Salcedo, THAD [address] [place] [address] Scheduled Orders Name Type Priority Associated Diagnoses Orde r Schedule Urinalysis, Complete, with Reflex to Culture Lab Routine Candidiasis Ordered: 10/31/2024 Chlamydia/N. Gonorrhoeae RNA, TMA, Vaginal Microbiology Routine Candidiasis Ordered: 10/31/2024 HIV-1/2 Antigen and Antibodies, Fourth Generation, with Reflexes Lab Routine Candidiasis Expected: 10/31/2024 (Approximate), Expires: 10/31/2025 Syphilis Screen Lab Routine Candidiasis Expected: 10/31/2024 (Approximate), Expires: 10/31/2025 documented as of this encounter Procedures Procedure Name Priority Date/Time Associated Diagnosis Comments POCT , URINE Routine 10/31/2024 11:00 AM EDT Candidiasis POCT URINALYSIS DIPSTICK Routine 10/31/2024 11:00 AM EDT Candidiasis documented in this encounter Results * POCT , urine manually resulted (10/31/2024 11:00 AM EDT) Preg Test, Ur Negative Negative, Indeterminate, None Detected, Invalid, Specimen unsatisfactory for evaluation, Weakly Positive, 2+ Urine 10/31/2024 11:0 0 AM EDT Caron Marrufo MD POINT OF CARE TEST ENTER/E DIT ORDERABLES Final Result * (ABNORMAL) POCT urinalysis dipstick manually resulted (10/31/2024 11:00 AM EDT) Color, UA Yellow Clarity, UA Clear Glucose, UA Negative Bilirubin, UA Negative Ketones, UA Negative Spec Grav, UA 1.020 Blood, UA Positive(A) Negative, None Detected Comment:trace-intact pH, UA 7.0 Protein, UA Trace Urobilinogen, UA 1.0 Leukocytes, UA Moderate(A) Negative, Rare, Trace Nitrite, UA Negative Negative, None Detected Urine 10/31/2024 11:0 0 AM EDT Caron Marrufo MD POINT OF CARE TEST ENTER/E DIT ORDERABLES Final Result documented in this encounter Visit Diagnoses Diagnosis Candidiasis- Primary documented in this encounter Additional Health Concerns Assessment Noted Time PHQ-9 Depression Total Score: 4 04/21/19 25 11:06 AM EST documented as of this encounter Care Teams Family And Marriage Counsellor Relationship Specialty Start Date End Date Caron Marrufo MD [address] [place] [phone] PCP - General Family Medicine 12/23/23 Flakita Brice [address] [place] [address] [address] [place] [address] Orthopaedic Surgery 05/25/24 documented as of this encounter
--- OUTSIDE RECORDS SUMMARY | 2024-10-31 13:36 | XMS_ITS | Clinical Summary ---
Author Organization [facility] Address [address] [place] [address] Care Team Providers Care Ribber Name Role Phone Krystal Cleveland PA-C Primary [...] Flu, Preservative Free 11/20/2022,12/24/2021 HEP B, PED/ADOL ([id number]/RECOMBIVAX-PEDS) 12/17/2003,08/07/2003,05/02/2003 HPV, QUADRIVALENT 07/02/2014,12/21/2013,10/05/19 14 Hep A, Ped/adol, 2 Dose 05/23/2008,10/01/2006 Hib (PRP-T) 04/27/2003,2002 INFLUENZA, SEASONAL, INJECTABLE 03/18/2012 INFLUENZA, SEASONAL, INJECTA BLE, PRESERVATIVE FREE 10/30/2014,12/21/2013 MENINGOCOCCAL MPSV4 10/04/2013 MMR (MMR II/Priorix) 01/26/2006,05/02/2003 Moderna COVID-19 Vaccine, re d cap blue label, 12+ Primary Series 07/15/2020,06/16/2020 PNEUMOCOCCAL CONJUGATE PCV 13 07/02/2014 TDAP 10/04/2013 Varicella (Varivax), Live Vaccine 01/26/2006,11/2003 Family History Medical History Relation Name Comments [...] 78 04/26/2023 3:41 PM EST Temperature 36.6 C (97.8 F) 04/26/2023 3:41 PM EST Respiratory Rate 17 04/26/2023 3:41 PM EST [...] Cancer Screening 2023 Pap Smear 2023 Annual Wellness (Adult): Indicated (All Coverage) 02/26/2023 02/26/2022 Anxiety Screening 11/21/2023 11/20/2022 Alcohol and Drug Screen 02/23/2024 04/26/19 24, 02/26/2022, 12/24/2021, Additional history exists Depression Annual Screen 02/23/2024 04/26/2023, 05/0 10/2016 Chlamydia Screening 04/25/2024 04/26/2023 Gonorrhea Screening 04/25/2024 04/26/2023 [id number] ( season) 2024 021, 06/16/2020 Imm-Influenza (#1) 2024 11/20/2022, 1 02/23/2021, 10/30/2014, Additional history exists Hypertension Screening (#1) 04/25/2026 Imm-DTaP/Tdap/Td (8 - [...] TRACHOMATIS RNA, TMA NOT DETECTED NOT DETECTED [facility] NEISSERIA GONORRHOEAE RNA, TMA NOT DETECTED NOT DETECTED [facility] COMMENT [facility] SURESWAB(R) ADV BACTERIAL VAGINOSIS (BV), TMA NEGATIVE NEGATIVE [facility] MICHELLE SPECIES DETECTED(A) NOT DETECTED [facility] MICHELLE GLABRATA NOT DETECTED NOT DETECTED [facility] COMMENT [facility] TRICHOMONAS VAGINALIS (TV), TMA NOT DETECTED NOT DETECTED [facility] Vaginal Vaginal structure / Unknown 04/26/2023 4:22 PM EST 04/28/2023 12:58 AM EST Narrative [facility] - 04/28/2023 2:24 PM EST Michelle species C. albicans, C. tropicalis, C. parapsilosis, and/or C. dubliniensis can be detected, but not differentiated, in the Michelle spp. result. For additional information, please refer to https://education.CHOBOLABS/faq/NDR351 (This link is being provided for information/ educational purposes only.) us [facility] - MICROBIOLOGY AMBULATORY Fi nal Result [employer] [address] [place] [phone], [facility] [address] [phone] from Last 3 Months or Most Recently Relevant to Health Maintenance Insurance [facility] [address] [employer] Care Teams Ribber Relationship Specialty Start Date End Date Krystal Cleveland PA-C [address] [place] [address] PCP - General FAMILY MEDICINEVINNY 10/23/21
--- OUTSIDE RECORDS SUMMARY | 2024-10-31 13:36 | XMS_ITS | Encounter Summary ---
Author Organization [employer] Address [address] [facility] 7t [place] [address] Care Team Providers Care Medical Assistant Instructor Name Role Phone Caron Marrufo MD Primary Care Provider +1- [phone] Flakita Brice Unavailable Encounter Details Date Type Department Care Team (Late st Contact Info) Description 10/02/2024 Results Follow-Up [facility] [address] [place] [address] Liat Salcedo CNM [address] [place] [address] Pap Smear Social History Tobacco Use Types Packs/Day Years [...] Description 12/26/2024 9:15 AM EST Office Visit [facility] [address] [place] [address] Liat Salcedo CNM [address] [place] [address] documented as of this encounter Visit Diagnoses Not on filedocumented in this encounter Additional Health Concerns Assessment Noted Time PHQ-9 Depression Total Score: 4 04/21/19 25 11:06 AM EST documented as of this encounter Care Teams Medical Assistant Instructor Relationship Specialty Start Date End Date Caron Marrufo MD [address] [place] [phone] PCP - General Family Medicine 12/23/23 Flakita Brice [address] [place] [address] Dr [address] [place] [address] Orthopaedic Surgery 05/25/24 documented as of this encounter
--- OUTSIDE RECORDS SUMMARY | 2024-10-31 13:37 | XMS_ITS | Clinical Summary ---
Author Organization [employer] Address [address] [facility] [address] [place] [address] Care Team Providers Care Turkey Egg Gatherer Name Role Phone Caron Marrufo MD Primary Care Provider [phone]- [phone] BabsFlakita Unavailable Allergies No known active allergies Medications levonorgestrel-e thinyl estradiol (Nordette) 0.15-30 MG-MCG tablet Take 1 tablet by mouth Once per day. 28 tablet 11 09/25/2024 6 Active fluconazole (Diflucan) 150 MG tabletIndication s:Vulvovaginal Candidiasis Take 1 tablet (150 mg) by mouth 1 (one) time for 1 dose. 1 tablet 10/31/2024 5 Active Active Problems Problem Noted Date Diagnosed [...] due after 04/21/25 -eye care facilitated by [facility] -dental [place] encouraged -simon care proxy filed 03/27/24 Assessment & Plan (04/21/2024 10:23 AM EST): -next comprehensive annual evaluation due after 04/21/25 -eye care facilitated by [facility] -dental [place] encouraged -simon care proxy filed 03/27/24 Family [...] Encounters Date Type Department Care Team Description 10/31/2024 10:40 AM EDT Office Visit [facility] [address] [place] [phone] Caron Marrufo MD Candidiasis (Primary Dx) 10/31/2024 Travel 10/25/2024 Telephone [facility] [address] [place] [phone] Caron Marrufo MD December Recalls 10/19/2024 Telephone [facility] [address] [place] [phone] Mary Whittaker [place] 10/02/2024 Results Follow-Up [facility] [address] [place] [phone] Da Hand CNM Pap Smear 09/25/2024 1:15 PM EDT Procedure Visit [facility] [address] [place] [phone] Da Hand CNM Cervical cancer screening (Primary Dx); Family planning counseling; Encntr screen for infections w sexl mode of transmiss 09/25/2024 Travel 09/22/2024 Telephone [facility] [address] [place] [phone] Mary Whittaker [place] 09/18/2024 Telephone [facility] [address] [place] [address] [phone] Caron Marrufo MD Medication Question 09/12/[address] [phone] Caron Marrufo MD Appointment Request from Last [...] Mass Index 21.92 10/31/2024 10:19 AM EDT Plan of Treatment Upcoming Encounters Date Type Department Care Team (Late st Contact Info) Description 12/26/2024 9:15 AM EST Office Visit [facility] [address], [place] [phone] Da Hand, CNM [address], [place] [phone] Health Maintenance Due Date Last Done Comments Meningococcal B Vaccine (1 of 2 - Standard) 2018 COVID-19 Vaccine (3 - season) 2024 07/15/2020, 06/16/2020 Influenza Vaccine (#1) 2024 , 11/20/2022, 12/24/2021, Additional history exists Alcohol/Substance Use Screening 04/21/2025 04/21/2024 Depression Screening 04/21/2025 04/21/2024, 04/21/19 25 SDOH Screening 04/21/2025 04/21/2024 Chlamydia and Gonorrhea Screening 09/25/2025 09/25/2024, 04/28/2024, 03/25/2024 Disability Screening 09/25/2025 09/25/2024 Family Planning (PISQ) 09/25/2025 09/25/2024 Tobacco Screening 10/31/2025 10/31/2024 Pap Smear 09/26/2027 09/25/2024 DTaP/Tdap/Td Vaccines (9 - Td or [...] DIPSTICK Routine 10/31/2024 11:00 AM EDT Candidiasis CHLAMYDIA/N. GONORRHOEAE AND T. VAGINALIS RNA, QUAL,TMA Routine 09/25/2024 1:31 PM EDT Encntr screen for infections w sexl mode of transmiss PAP SMEAR Routine 09/25/2024 1:31 PM EDT Cervical cancer screening HEPATITIS C AB W/REFL TO HCV RNA, QN, PCR Routine 03/27/2024 2:00 PM EST Chlamydia infection HIV 1/2 ANTIGEN/ANTIBODY, FOURTH GENERATION W/RFL Routine 03/27/2024 2:00 PM EST Chlamydia infection from Last 3 Months or Most Recently Relevant to Health Maintenance Results * POCT , urine manually resulted [...] TEST ENTER/E DIT ORDERABLES Final Result * STI testing add on (NG, CT, Trich) (09/25/2024 1:31 PM EDT) Pathologist [facility] Trichomonas (NAAT) NOT DETECTED NOT DETECTED [facility] Comment:The analytical perfo rmance characteristics of thisassay have been determined by [employer]. Themodifications have not been cleared or approved bythe FDA. This assay has been validated pursuant to theCLIA regulations and is used for clinical purposes.For additional information, please refer tohttp://education.Hone and Strop/faq/Trichomonastma(This link is being provided for information/educational purposes only.)THIS TEST WAS PERFORMED AT:[facility] [place] [phone] ROBERSON MD CTNG Ref Lab NOT DETECTED NOT DETECTED [facility] NG Ref Lab NOT DETECTED NOT DETECTED [facility] ThinPrep vial Cervix uteri structure / Unknown 09/25/2024 1:31 PM EDT 09/26/2024 8:04 AM EDT [facility] - 09/27/2024 10:19 PM EDT Collection Date: [id number] by: MARY Zhou: Cervix Da [facility] CYTOLOGY ORDERABLES F inal Result [facility] [address] [place] [phone] * Pap Smear (09/25/2024 1:31 PM EDT) Swab Cervix uteri structure / Unknown 09/25/2024 1:31 PM EDT 09/26/2024 8:04 AM EDT [facility] - 09/29/2024 9:28 AM EDT ----- ------- Name: Kelvin Toure Age/Sex: 24/F [facility] 2000 [id number] [id number] Attend Dr: DA HAND CNM Re09/25/24 Status: [facility] Disch: ----- ------- SPEC : [id number] RECD: 09/26/24 STATUS: HERMILO REBOLLEDO NUM: [id number] SHABBIR: 09/25/[address] [facility] [address]: DA HAND Ladan ENTERED: 09/26/24 SP TYPE: Pap Smr OTHR DR: ORDERED: Pap Smear Interpretation Satisfactory for evaluation. Negative for intraepithelial lesion or malignancy. No endocervical cells seen. Clinical Information LMP: Unknown date Previous PAP test: Initial Pap Other history: Cervical cancer screening Material Received ThinPrep-Cervical PAP Disclaimer As of December 15, 2023, the technical services to include automated prescreening performed by the ThinPrep Imaging System, PAP screening and HPV testing will be performed at [facility] (CLIA #[id number]), [address] [place] [address]. Testing for HPV was performed using the [employer] system. The presence of HPV in the female genital tract is associated with a number of diseases, including cervical carcinoma. The HPV DNA high risk pool tests for HPV 31, 33, 35, 39, 45, 51, 52, 56, 58, 59, 66 and 68. The testing for HPV 16 and 18 genotypes has also been performed. A positive result indicates detection of nucleic acid sequences from one or more subtypes, whereas a negative result indicates such sequences were not detected. All professional services are performed by [facility] ([address] [place] [address]; ; CLIA #[id number]). The PAP Test is a screening procedure with the inherent possibility of both false negative and false positive results. Results should be interpreted in the context of historic and current clinical findings. Reliability of the PAP Test is enhanced by performing the test on a regular repetitive basis. ----- ------- Signed (signature on file) WERO Mahoney ([facility]) 09/29/24 0928 ----- ------- END OF REPORT Da [facility] LAB CYTOLOGY ORDERABLES F inal Result Performing Organization Address [facility] Co de Phone Number [facility] [address] [place] [phone] * Hepatitis C Antibody with Reflex to HCV, RNA, Quantitative, Real-Time PCR (03/27/2024 2:00 PM EST) [facility] Hepatitis C Antibody Nonreactive Nonreactive [facility] Comment:Antibodies to HCV no t detected; does not exclude early acuteHCV infection. Blood Venous blood specimen / Unknown 03/27/2024 2:00 PM EST 03/27/2024 4:00 PM EST Viraj Rendon MD LAB BLOOD ORDERABLES Final Resul t Performing Organization Address [facility] Co de Phone Number [facility] [address] [place] [phone] * HIV-1/2 Antigen and Antibodies, Fourth Generation, with Reflexes (03/27/2024 2:00 PM EST) Pathologist [facility] HIV AB/AG Nonreactive Nonreactive [facility] Comment:HIV-1 p24 Ag and/or HIV-1/HIV-2 Ab not detected.A test result that is nonreactive does not exclude thepossibility of exposure to or infection with HIV-1 and/orHIV-2. Nonreactive results in this assay for individualswith prior exposure to HIV-1 and/or HIV-2 may be due toantigen and antibody levels that are below the limit ofdetection of this assay.The [employer] HIV Ag/Ab Combo assay result andsupplemental assay results should be interpreted inconjunction with the patient's clinical presentation,history and other laboratory results. If the results areinconsistent with clinical evidence, additional testing issuggested to confirm the result. 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
--- OUTSIDE RECORDS SUMMARY | 2024-10-31 13:37 | XMS_ITS | Encounter Summary ---
Author Organization [employer] Address [address] [facility] [address] [place] [address] Care Team Providers Care Wheel Polisher Name Role Phone Caron Marrufo MD Primary Care Provider +1- [phone] Flakita Brice Unavailable Encounter Details Date Type Department Care Team (Latest Contact Info) Description 10/31/2024 Travel Social History Tobacco Use Types Packs/Day [...] Description 12/26/2024 9:15 AM EST Office Visit [facility] [address] [place] [address] Liat Salcedo CNM [address] [place] [address] documented as of this encounter Visit Diagnoses Not on filedocumented in this encounter Additional Health Concerns Assessment Noted Time PHQ-9 Depression Total Score: 4 04/21/19 25 11:06 AM EST documented as of this encounter Care Teams Wheel Polisher Relationship Specialty Start Date End Date Caron Marrufo MD [address] [place] [phone] PCP - General Family Medicine 12/23/23 Flakita Brice [address] [place] [address] Dr [address] [place] [address] Orthopaedic Surgery 05/25/24 documented as of this encounter
[2024-11-01 03:18] LABS: Syphilis Screen Nonreactive (Nonreactive)
[2024-11-01 03:45] LABS: HIV Num 1 0.05 S/CO (0.00-0.99)
[2024-11-01 12:17] LABS: Appearance Urine Cloudy; Glucose Urine UA Negative (Negative); PH 7.0 (5.0-9.0); Specific Gravity - Urine 1.020 (1.005-1.025); UMIC TRIGGER UACC YES
[2024-11-01 12:35] LABS: UACC Culture Trigger YES
[2024-11-01 13:49] LABS: CT PCR NOT DETECTED (Not Detect.); NG PCR NOT DETECTED (Not Detect.)
== END 2024-10-31 11:15 | disposition home or self-care (01) ==
LOC: HO.HHCL 11:14
PROVIDERS: PCP Family Medicine; Visit Provider Family Medicine
DX: Z11.4 Encounter for screening for human immunodeficiency virus [HIV] (principal); Z11.3 Encounter for screening for infections with a predominantly sexual mode of transmission; Z11.8 Encounter for screening for other infectious and parasitic diseases; B37.9 Candidiasis, unspecified
CPT/HCPCS: 36415; 81001; 86780; 87086; 87389; 87491; 87591

== ENCOUNTER 2024-12-26 16:39 | Outpatient (REF) | payer MEDICAID, SELFPAY ==
--- OUTSIDE RECORDS SUMMARY | 2024-12-26 09:15 | XMS_ITS | Encounter Summary ---
Author Organization [employer] Address [address] [facility] [address] [place] [address] Care Team Providers Care Cloth Presser Name Role Phone Caron Marrufo MD Primary Care Provider +1- [phone] Flakita Brice Unavailable Reason for Visit * Reason Comments f/u Encounter Details Date Type Department Care Team (Latest Contact Info) Description 12/26/2024 9:15 AM EST Office Visit [facility] [address] [place], [place] [phone] Liat Salcedo CNM [address] [place] [address] Surveillance of previously prescribed contraceptive pill (Primary Dx); Encntr screen for infections w sexl mode of transmiss Social History Tobacco Use Types Packs/Day Years [...] Access Q2 Not on file 04/21/2024 Comments No Intention Date Recorded No desire to become (finding) 1 02/26/2024 Sex and Gender Information Value Date Recorded Sex Assigned at Female 06/26/2022 10:25 AM EDT Legal Sex Female 10:24 AM EDT Gender Identity Female 06/26/2022 10:25 AM EDT Sexual Orientation Straight 06/26/2022 10 :25 AM EDT documented as of this encounter Last Filed Vital Signs Vital Sign Reading Time Taken Comments Blood Pressure 102/70 12/26/2024 9:17 AM EST Pulse 90 12/26/2024 9:17 AM EST Temperature 36.2 C (97.1 F) 12/26/2024 9:17 AM EST Respiratory Rate 14 12/26/2024 9:17 AM EST Oxygen Saturation 97% 12/26/2024 9:17 AM EST Inhaled Oxygen Concentration - - Weight 61.8 kg (136 lb 3.2 oz) 12/26/2024 9:17 A M EST Height - - Body Mass Index 21.98 11/13/2024 10:07 AM EDT documented in this encounter Progress Notes * Liat Salcedo CNM - 12/26/2024 9:15 AM EST Subjective Patient ID: Kelvin Toure is a 24 y.o. female who presents for oral contraceptive pill followup Here with son. Gonorrhea/Chlamydia, HIV, syphilis and Hep C neg 10/2024. Pap NIL 09/2024. Started on Nordette at that visit. Here to followup. It doesn't look like oral Gonorrhea/Chlamydia run at 09/2024 visit. She would like provider collected sample for this today. Treated for vulvovaginal candidiasis 10/2024. Symptoms fully resolved. Happy with oral contraceptive pill, denies missed or late pills. Denies ACHES. Would like to continue pill, not planning in the next year. No change in partner. Monthly menses x 3 days on oral contraceptive pill, no heavy flow or bothersome cramping. Review of Systems Eyes: Negative for visual disturbance. Respiratory: Negative for shortness of breath. Cardiovascular: Negative for chest pain and leg swelling. Skin: Negative for color change. Neurological: Negative for headaches. Objective BP 102/70 (BP Location: Left arm, Patient Position: Sitting, BP Cuff Size: Adult) Pulse 90 Temp97.1 ??F (36.2 ??C) (Oral) Resp 14 Wt 136 lb 3.2 oz (61.8 kg) LMP 12/15/2024 SpO2 97% BMI21.98 kg/m?? Physical Exam Constitutional: Appearance: Normal appearance. Neurological: Mental Status: She is alert. Psychiatric: Mood and Affect: Mood normal. Behavior: Behavior normal. Assessment/Plan Diagnoses and all orders for this visit: Surveillance of previously prescribed contraceptive pill Happy with method, has refills. Followup 1 year, sooner if needed. ACHES reviewed. Encntr screen for infections w sexl mode of transmiss - Chlamydia/N. Gonorrhoeae RNA, TMA, Throat Oral Gonorrhea/Chlamydia sent today. Will contact with results. documented in this encounter Plan of Treatment Scheduled Orders Name Type Priority Associated Diagnoses Orde r Schedule Chlamydia/N. Gonorrhoeae RNA, TMA, Throat Microbiology Routine Encntr screen for infections w sexl mode of transmiss Ordered: 12/26/2024 documented as of this encounter Visit Diagnoses Diagnosis Surveillance of previously prescribed contraceptive pill- Primary Encntr screen for infections w sexl mode of transmiss documented in this encounter Additional Health Concerns Assessment Noted Time PHQ-9 Depression Total Score: 4 04/21/19 25 11:06 AM EST documented as of this encounter Care Teams Cloth Presser Relationship Specialty Start Date End Date Caron Marrufo MD [address] [place] [phone] PCP - General Family Medicine 12/23/23 Flakita Brice [address] [place] [phone] Orthopaedic Surgery 05/25/24 documented as of this encounter
--- OUTSIDE RECORDS SUMMARY | 2024-12-26 18:40 | XMS_ITS | Clinical Summary ---
Author Organization [employer] Address [address] [facility] [address] [place] [address] Care Team Providers Care Ceo And Founder Name Role Phone Caron Marrufo MD Primary Care Provider +1- [phone] BabsFlakita Unavailable Allergies No known active allergies Medications levonorgestrel-e thinyl estradiol (Nordette) 0.15-30 MG-MCG tablet Take 1 tablet by mouth Once per day. 28 tablet 11 09/25/2024 Active Active Problems Problem Noted Date Diagnosed [...] due after 04/21/25 -eye care facilitated by [facility] -dental home encouraged -simon care proxy filed 03/27/24 Assessment & Plan (04/21/2024 10:23 AM EST): -next comprehensive annual evaluation due after 04/21/25 -eye care facilitated by [facility] -dental home encouraged -simon [...] Encounters Date Type Department Care Team Description 12/26/2024 9:15 AM EST Office Visit [facility] [address] [place] [phone] Da Hand CNM Surveillance of previously prescribed contraceptive pill (Primary Dx); Encntr screen for infections w sexl mode of transmiss 12/26/2024 Travel 12/25/2024 Telephone [facility] [address] [place] [phone] Mary Whittaker [place] 11/13/2024 11:00 AM EDT Office Visit [facility] [address] [place] [address] Valerie Pierre MD Bacterial conjunctivitis (Primary Dx) 11/13/2024 Travel 10/31/2024 10:40 AM EDT Office Visit [facility] [address] [place] [phone] Caron Marrufo MD Candidiasis (Primary Dx) 10/31/2024 Travel 10/25/2024 Telephone [facility] [address] [place] [phone] Caron Marrufo MD December Recalls 10/19/2024 Telephone [facility] [address] [place] [phone] Mary Whittaker [place] 10/02/2024 Results Follow-Up [facility] [address] [place] [phone] Da Hand CNM Pap Smear 09/25/2024 1:15 PM EDT Procedure Visit [facility] [address] [place] [phone] Da Hand CNM Cervical cancer screening (Primary Dx); Family planning counseling; Encntr screen for infections w sexl mode of transmiss 09/25/2024 Travel from Last 3 Months Immunizations Immunization Administration [...] oz) 12/26/2024 9:17 A M EST Height 167.6 cm (5' 6 ) 11/13/2024 10:07 AM EDT Body Mass Index 21.98 11/13/2024 10:07 AM EDT Plan of Treatment Health Maintenance Due Date Last Done Comments Meningococcal B Vaccine (1 of 2 - Standard) 2018 COVID-19 Vaccine (3 - season) 2024 07/15/2020, 06/16/2020 Influenza Vaccine (#1) 2024 , 11/20/2022, 12/24/2021, Additional history exists Alcohol/Substance Use Screening 04/21/2025 04/21/2024 Depression Screening 04/21/2025 04/21/2024, 04/21/19 SDOH Screening 04/21/2025 04/21/2024 Disability Screening 09/25/2025 09/25/2024 Chlamydia and Gonorrhea Screening 10/31/2025 10/31/2024, 09/25/2024, 04/28/2024, Additional history exists Family Planning (PISQ) 12/26/2025 12/26/2024 Tobacco Screening 12/26/2025 12/26/2024 Pap Smear 09/26/2027 09/25/2024 DTaP/Tdap/Td Vaccines (9 [...] on patient's age to complete this topic Hepatitis C Screening Completed 03/27/2024 HIV Screening Completed 10/31/2024, 03/27/2024 IPV Vaccines Aged Out No longer eligi ble based on patient's age to complete this topic RSV under 20 months Aged Out No longe r eligible based on patient's age to complete this topic Rotavirus Vaccines Aged Out No longer eligible based on patient's age to complete this topic Procedures Procedure Name Priority Date/Time Associated Diagnosis Comments CULTURE, URINE, ROUTINE Routine 11/01/2024 12:00 AM EDT SYPHILIS SCREEN Routine 10/31/2024 11:23 AM EDT Candidiasis HIV 1/2 ANTIGEN/ANTIBODY, FOURTH GENERATION W/RFL Routine 10/31/2024 11:23 AM EDT Candidiasis POCT , URINE Routine 10/31/2024 11:00 AM EDT Candidiasis POCT URINALYSIS DIPSTICK Routine 10/31/2024 11:00 AM EDT Candidiasis URINALYSIS, COMPLETE, WITH REFLEX TO CULTURE Routine 10/31/2024 10:59 AM EDT Candidiasis CHLAMYDIA/N. GONORRHOEAE RNA, TMA, UROGENITAL Routine 10/31/2024 10:59 AM EDT Candidiasis CHLAMYDIA/N. GONORRHOEAE AND T. VAGINALIS RNA, QUAL,TMA Routine 09/25/2024 1:31 PM EDT Encntr screen for infections w sexl mode of transmiss PAP SMEAR Routine 09/25/2024 1:31 PM EDT Cervical cancer screening HEPATITIS C AB W/REFL TO HCV RNA, QN, PCR Routine 03/27/2024 2:00 PM EST Chlamydia infection from Last 3 Months or Most Recently Relevant to Health Maintenance Results * Culture, Urine, Routine (11/01/2024 12:00 AM EDT) Urine Urine specimen obtained by clean catch procedure / Unknown 11/01/2024 11/01/2024 Comment:UACC Narrative [facility] - 11/02/2024 9:29 AM EDT Urine Culture Report Result Urine Culture 10,000 to 50,000 cfu/ml Urine Culture Mixed bacterial crow characteristic of Urine Culture urogenital contamination. Specimen Source: Urine clean catch Caron Marrufo MD LAB MICROBIOLOGY - GENERAL ORDERABLES Final Result Performing Organization Address City/[facility]/ZIP Co de Phone Number [facility] [address] [place] [phone] * Syphilis Screen (10/31/2024 11:23 AM EDT) Syphilis Screen Nonreactive Nonreactive [facility] Blood Venous blood specimen / Unknown 10/31/2024 11:23 AM EDT 10/31/2024 1:04 PM EDT Caron Marrufo MD LAB BLOOD ORDERABLES Final Result Performing Organization Address City/[facility] Co de Phone Number [facility] [address] [place] [phone] * HIV-1/2 Antigen and Antibodies, Fourth Generation, with Reflexes (10/31/2024 11:23 AM EDT) HIV AB/AG Nonreactive Nonreactive [facility] Comment:HIV-1 p24 Ag and/or HIV-1/HIV-2 Ab not detected.A test result that is nonreactive does not exclude thepossibility of exposure to or infection with HIV-1 and/orHIV-2. Nonreactive results in this assay for individualswith prior exposure to HIV-1 and/or HIV-2 may be due toantigen and antibody levels that are below the limit ofdetection of this assay.The [employer] HIV Ag/Ab Combo assay result andsupplemental assay results should be interpreted inconjunction with the patient's clinical presentation,history and other laboratory results. If the results areinconsistent with clinical evidence, additional testing issuggested to confirm the result. Blood Venous blood specimen / Unknown 10/31/2024 11:23 AM EDT 10/31/2024 1:04 PM EDT us Caron Marrufo MD LAB BLOOD ORDERABLES Final Result [facility] [address] [place] [address] [phone] * POCT , urine manually resulted (10/31/2024 11:00 AM EDT) Preg Test, Ur Negative Negative, Indeterminate, None Detected, Invalid, Specimen unsatisfactory for evaluation, Weakly Positive, 2+ Urine 10/31/2024 11:0 0 AM EDT us Caron Marrufo MD POINT OF CARE [...] Detected Urine 10/31/2024 11:0 0 AM EDT us Caron Marrufo MD POINT OF CARE TEST ENTER/E DIT ORDERABLES Final Result * (ABNORMAL) Urinalysis, Complete, with Reflex to Culture (10/31/2024 10:59 AM EDT) Color Urine Dark Yellow [facility] Appearance Urine Cloudy [facility] PH 7.0 5.0 - 9.0 [facility] Glucose Urine UA Negative Negative mg/dL [facility] Urine Blood Negative Negative [facility] Specific Peterson - Urine 1.020 1.005 - 1.025 [facility] Urine Protein Trace Neg-Trace mg/dL [facility] Urine Ketones Negative Negative mg/dL [facility] Nitrite Urine Negative Negative [facility] Leukocyte Esterase Urine Moderate (2+)(A) Negative [facility] RBC Urine 6-10(A) 0 - 2 /HPF [facility] Urine WBC >50(A) 0 - 5 /HPF [facility] Urine Squamous Epithelial Cell >20 0 - 2 /HPF [facility] Urine Bacteria 2+ None Seen [facility] Hyaline Casts, Urine 3-5 0 - 2 /LPF [facility] Urine 10/31/2024 10:5 9 AM EDT 11/01/2024 12:13 PM EDT Narrative [facility] - 11/01/2024 12:36 PM EDT Urine, Clean Catch us Caron Marrufo MD LAB URINE ORDERABLES Final Result [facility] [address] [place] [phone] * Chlamydia/N. Gonorrhoeae RNA, TMA, Vaginal (10/31/2024 10:59 AM EDT) CT PCR NOT DETECTED Not Detect. [facility] Comment:A not detected test result [...] psychologicalconsequences. NG PCR NOT DETECTED Not Detect. [facility] Comment:A not detected test result [...] or psychologicalconsequences. Swab Vaginal structure / Unknown 10/31/2024 10:59 AM EDT 11/01/2024 12:13 PM EDT Caron Marrufo MD LAB MICROBIOLOGY - GENERAL ORDERABLES Final Result [facility] [address] [place] [address] [phone] * STI testing add on (NG, CT, Trich) (09/25/2024 1:31 PM EDT) Trichomonas (NAAT) NOT DETECTED NOT DETECTED [facility] Comment:The analytical perfo rmance characteristics of thisassay have been determined by [employer]. Themodifications have not been cleared or approved bythe FDA. This assay has been validated pursuant to theCLIA regulations and is used for clinical purposes.For additional information, please refer tohttp://education.Grid Mobile.GCW/faq/Trichomonastma(This link is being provided for information/educational purposes only.)THIS TEST WAS PERFORMED AT:[employer] [place] [phone] ROBERSON MD CTNG Ref Lab NOT DETECTED NOT DETECTED [facility] NG Ref Lab NOT DETECTED NOT DETECTED [facility] ThinPrep vial Cervix uteri structure / Unknown 09/25/2024 1:31 PM EDT 09/26/2024 8:04 AM EDT [facility] - 09/27/2024 10:19 PM EDT Collection Date: [id number] by: MARY Zhou: Cervix Da Hand CNM LAB CYTOLOGY ORDERABLES F inal Result [facility] [address] [place] [address] [phone] * Pap Smear (09/25/2024 1:31 PM EDT) Swab Cervix uteri structure / Unknown 09/25/2024 1:31 PM EDT 09/26/2024 8:04 AM EDT [facility] - 09/29/2024 9:28 AM EDT ----- ------- Name: Kelvin Toure Age/Sex: 24/F : 2000 Unit#: [id number] Attend Dr: DA HAND CNM Re09/25/24 Status: DEP [facility] ----- ------- SPEC : [id number] RECD: 09/26/24 STATUS: HERMILO REBOLLEDO NUM: [id number] SHABBIR: 09/25/[address] [facility] [address]: DA HAND CNM ENTERED: 09/26/24 SP TYPE: Pap Smr OT DR: ORDERED: Pap Smear Interpretation Satisfactory for [...] and HPV testing will be performed at [facility] (CLIA #[id number]), [address] [place] [address]. Testing for HPV was performed using the [employer] CHA 6800 system. The presence of HPV in the [...] detected. All professional services are performed by [facility] ([address] [place] [address], [place] [address]; ; CLIA #[id number]). The PAP Test is a screening procedure with the inherent possibility of both false negative and false positive results. Results should be interpreted in the context of historic and current clinical findings. Reliability of the PAP Test is enhanced by performing the test on a regular repetitive basis. ----- ------- Signed (signature on file) WERO Mahoney ([facility]) 09/29/24 0928 ----- ------- END OF REPORT Da MOTA LAB CYTOLOGY ORDERABLES F inal Result Performing Organization Address [facility] de Phone Number [facility] [address] [place] [phone] * Hepatitis C Antibody with Reflex to HCV, RNA, Quantitative, Real-Time PCR (03/27/2024 2:00 PM EST) Pathologist [facility] Hepatitis C Antibody Nonreactive Nonreactive [facility] Comment:Antibodies to HCV no t detected; does not exclude early acuteHCV infection. Blood Venous blood specimen / Unknown 03/27/2024 2:00 PM EST 03/27/2024 4:00 PM EST Viraj Rendon MD LAB BLOOD ORDERABLES Final Resul t Performing Organization Address [facility] Co de Phone Number [facility] [address] [place] [address] [phone] from Last 3 Months or Most Recently Relevant to Health Maintenance Insurance C3 Advance Directives Documents on File Type Date Recorded Patient Biomass Technician Expl anation Advance Directives and Living Will 03/28/2024 1:19 PM Health Care Proxy Care Teams Ceo And Founder Relationship Specialty Start Date End Date Caron Marrufo MD [address] [place] [phone] PCP - General Family Medicine 12/23/23 Flakita Brice [address] [place] [address] [address] [place] [address] Orthopaedic Surgery 05/25/24
--- OUTSIDE RECORDS SUMMARY | 2024-12-26 18:40 | XMS_ITS | Encounter Summary ---
Author Organization [employer] Address [address] [facility] [address] [place] [address] Care Team Providers Care Single Pass Soil Stabilizer Operator Name Role Phone Caron Marrufo MD Primary Care Provider [phone]- [phone] Flakita Brice Unavailable Encounter Details Date Type Department Care Team (Late st Contact Info) Description 12/25/2024 Telephone [facility] [address] [place] [address] Michael Whittakercy [place] Social History Tobacco Use Types Packs/Day Years [...] encounter Miscellaneous Notes * Telephone Encounter - Mary Whittaker [place] - 12/25/2024 2:02 PM EST Chart Prep Labs: done Images: done Referrals: not applicable Vaccines due: Covid and Flu Screenings: not applicable Overdue care gaps: Not applicable documented in this encounter Plan of Treatment Not on file documented as of this encounter Visit Diagnoses Not on filedocumented in this encounter Additional Health Concerns Assessment Noted Time PHQ-9 Depression Total Score: 4 04/21/19 25 11:06 AM EST documented as of this encounter Care Teams Single Pass Soil Stabilizer Operator Relationship Specialty Start Date End Date Caron Marrufo MD [address] [place] [phone] PCP - General Family Medicine 12/23/23 Flakita Brice [address] [place] [address] [address] [place] [phone] Orthopaedic Surgery 05/25/24 documented as of this encounter
--- OUTSIDE RECORDS SUMMARY | 2024-12-26 18:40 | XMS_ITS | Encounter Summary ---
Author Organization [employer] Address [address] [facility] [address] [place] [address] Care Team Providers Care Patient Navigator Name Role Phone Caron Marrufo MD Primary Care Provider +1- [phone] Flakita Brice Unavailable Encounter Details Date Type Department Care Team (Latest Contact Info) Description 12/26/2024 Travel Social History Tobacco Use Types Packs/Day [...] Q2 Not on file 04/21/2024 Comments No Sex and Gender Information Value Date Recorded Sex Assigned at Female 06/26/2022 10:25 AM EDT Legal Sex Female 10:24 AM EDT Gender Identity Female 06/26/2022 10:25 AM EDT Sexual Orientation Straight 06/26/2022 10 :25 AM EDT documented as of this encounter Plan of Treatment Not on file documented as of this encounter Visit Diagnoses Not on filedocumented in this encounter Additional Health Concerns Assessment Noted Time PHQ-9 Depression Total Score: 4 04/21/19 25 11:06 AM EST documented as of this encounter Care Teams Patient Navigator Relationship Specialty Start Date End Date Caron Marrufo MD [address] [place] [phone] PCP - General Family Medicine 12/23/23 Flakita Brice [address] [place] [address] [address] [place] [address] Orthopaedic Surgery 05/25/24 documented as of this encounter
[2024-12-27 16:53] LABS: C. Trachomatis RNA TMA, Throat NOT DETECTED (NOT DETECTED); N. gonorrhoeae RNA TMA, Throat NOT DETECTED (NOT DETECTED)
== END 2024-12-26 16:40 | disposition home or self-care (01) ==
LOC: HO.HHCLNP 16:39
PROVIDERS: Visit Provider Advanced Practice Midwife
DX: Z20.2 Contact with and (suspected) exposure to infections with a predominantly sexual mode of transmission (principal)
CPT/HCPCS: 87491; 87591